=== PATIENT | female | born 1970 | race Caucasian/White ===

== ENCOUNTER 2019-09-09 10:31 | IRF | payer MEDICARE, SELFPAY ==
[2019-09-09 10:35] VITALS: BP 116/76; PULSE 87; RESP 20; TEMP 36.6; O2SAT 98; BMI 29.8
--- NOTE | 2019-09-09 10:49 | ADMGEN ---
This patient, Shilpi Benites, was admitted to [facility] Room 219-02. Patient/family oriented to hospital policies and general routines including ID bracelet, bed and alarms, visiting hours, pain management, procedures, bathroom and other care routines, personal items, smoking policy, room service/diet, and visiting hours. Valuables list has been completed. Information on how to activate the Rapid Response Team has been discussed. Patient/Family are encouraged to report perceived risks to care and to ask questions if they do not understand what they are told or what they should do.
[2019-09-09 11:50] VITALS: BMI 29.8
[2019-09-09 12:17] VITALS: BMI 29.8
--- NOTE | 2019-09-09 12:32 | WPDREHABHP ---
H&P: HPI History of Present Illness Chief complaint: Peripheral Neuropathy Narrative: Shilpi Benites is a 49 year old femaleHISTORY OF PRESENT ILLNESS: The patient's primary rehab impairment category is neurologic Which includes generalized weakness lumbar canal stenosis lumbar radiculopathy and peripheral neuropathy symptoms superimposed on underlying significant Parkinson's disease for which she has DBS The etiologic diagnosis is lumbar radiculopathy secondary to lumbar canal stenosis, peripheral neuropathy, gait disorder and significant Parkinson's disease we which began at the age of 19 I saw this patient [id number] on September 09, 2019 at 12 noon The patient is a 49-year-old right-handed woman known to me from her previous hospitalization post surgery on her back a few years ago who presented to [facility] on September 07, 2019 with complains of recurring falls and painful and weak bilateral lower extremities. The patient does have a history of Parkinson's disease status post DBS by Dr. Hernandez in 1998 and status post L4/L5 AL IF/P CT by Dr. Gomez in April of 2016. The patient reported she suffered a mechanical fall about 6 weeks ago but recovered from the fall without medical evaluation. On the day of admission she initially fell while at work when her right leg gave out from under her and had 2 subsequent falls. After the 3rd fall she reported she could not walk without assistance and a walker. She has been experiencing associated pain in her buttocks, groin, outer and anterior thighs. Stops at mid thigh and she has no pain down the posterior thigh about her leg. She denies any loss of consciousness with any of the falls she reported present CT of the entire spine was negative for any acute fracture. CT myelogram demonstrated partial mild graphic block at L2-L3 with patient stating aggravation of symptoms similar to her ongoing pain and postoperative changes of posterior instrumented and interbody fusion at L4-5 on a background of multilevel lumbar spine degenerative changes most advanced at L2-L3 and to a lesser extent of L3-4. Neurosurgery was consulted and reported her symptoms could be but all GI paresthetica. They ordered a bladder scan labs. She is currently on a low dose of levodopa twice a day because she she believes this help for bladder urgency. However she is telling me that she has been intolerant to carbidopa levodopa and has not been taking it since she had DBS. Neurology of course followed her to home she reported symptoms of poor appetite fatigue constipation urinary frequency myalgia as cramping tremor dysphoria postural instability and anxiety. her typical gait is slow and she shuffles with short steps UA was negative Prieb at the patient requires physicians monitoring of anemia and elevated BUN. She requires Neurology Services for monitoring for adverse reactions to new medications in conjunction with her active Parkinson's disease hypotension and pain management. The patient presents alert and oriented x3 demonstrates bilateral lower extremity pain decrease strength and endurance impaired balance and shuffling gait. The patient will be discharged to us with Lovenox for DVT prophylaxis The patient denies traveling outside the [place] in the previous 21 days likewise she denies traveling to and area of COVID pandemic case is she denies any upper respiratory or lower extremity symptoms Therapy was initiated at the acute care facility and the patient transferred to us from [facility] on September 09, 2019 FALLS OR SURGERIES: The patient has had no major surgeries in the 100 days prior to admission. They had falls in the past year. They had falls with injury in the past year. PAST MEDICAL HISTORY: Parkinson's disease for almost 30 years, lumbar spondylosis ptosis, anxiety, depression, insomnia,PONV, back strain, oriented disc disease, former smoker PAST SURGICAL HISTORY: DBS insertion, spinal fusion, g
[2019-09-09 14:00] VITALS: BP 116/76; PULSE 87; RESP 20; TEMP 36.6; O2SAT 98
[2019-09-09] MEDS: NAPROXEN 500 MG TABLET PO (17:43)
[2019-09-09] MEDS: ENOXAPARIN 40 MG/0.4 ML SYRINGE SUB-Q (17:43)
[2019-09-09] MEDS: FAMOTIDINE 20 MG TABLET PO (20:01)
[2019-09-09] MEDS: CLONAZEPAM 0.5 MG TAB 1 MG PO (20:01)
[2019-09-09] MEDS: MELATONIN 5 MG TABLET PO (20:04)
[2019-09-09 22:00] VITALS: BP 105/60; PULSE 83; RESP 18; TEMP 36.1; O2SAT 96
[2019-09-10 04:55] LABS: Basophils Percent Auto 0.5 % (0.2-1.2); Eosinophils Absolute Auto 0.2 K/mm3 (0-0.3); Eosinophils Percent Auto 2.8 % (0-4.4); Hemoglobin 11.9 g/dL (12.0-15.0); Immature Granulocyte Absolute 0.01 K/mm3 (0.00-0.031); Immature Granulocyte Percent A 0.2 % (0-0.5); Lymphocytes Absolute Auto 2.35 K/mm3 (0.9-3.2); Lymphocytes Percent Auto 41.1 % (18.3-44.2); Mean Corpuscular HGB Conc 33.1 g/dl (32-36); Mean Corpuscular Hemoglobin 29.3 pg (26-34); Mean Corpuscular Volume 88.7 fl (80-100); Mean Platelet Volume 9.4 fl (7.4-10.4); Monocytes Absolute Auto 0.5 K/mm3 (0.1-0.6); Monocytes Percent Auto 8.7 % (2.6-8.5); Neutrophils Absolute Auto 2.7 K/mm3 (1.3-6.7); Neutrophils Percent Auto 46.7 % (45.5-73.1); Platelet Count Result 200 k/mm3 (150-375); Red Blood Count 4.06 M/mm3 (4.2-5.4); Red Cell Distribution Width 12.5 % (11.5-14.5); White Blood Count 5.7 K/mm3 (4.5-10.0)
[2019-09-10 05:14] LABS: Blood Urea Nitrogen 31 mg/dL (7-17); Calcium 9.5 mg/dL (8.4-10.2); Carbon Dioxide 29 mmol/L (22-30); Chloride 107 mmol/L (98-107); Estimated CRCL calculation 85 ml/min; Estimated Glomerular Filt Rate > 60; Glucose 99 mg/dL (65-105); Potassium 3.8 mmol/L (3.4-5.0); Sodium 141 mmol/L (137-145)
[2019-09-10 06:00] VITALS: BP 114/76; PULSE 76; RESP 16; TEMP 35.7; O2SAT 94
[2019-09-10] MEDS: ENOXAPARIN 40 MG/0.4 ML SYRINGE SUB-Q (09:24)
[2019-09-10] MEDS: FAMOTIDINE 20 MG TABLET PO ×2 (09:24→21:15)
[2019-09-10] MEDS: SERTRALINE HCL 50 MG TABLET PO (09:25)
[2019-09-10] MEDS: NAPROXEN 500 MG TABLET PO ×2 (09:25→16:34)
[2019-09-10] MEDS: buPROPion HCL XL (24 HR) 150 MG TABCR 300 MG PO (09:25)
[2019-09-10] MEDS: BACLOFEN 5 MG TABLET PO ×2 (09:26→21:15)
[2019-09-10 14:00] VITALS: BP 98/42; PULSE 72; RESP 18; TEMP 36.6; O2SAT 100
--- NOTE | 2019-09-10 14:31 | WPDNEURORHBP ---
Subjective Date/time seen: 09/10/19 14:31 Interval history: This 49-year-old woman who has underlying Parkinson's disease status post DBS insertion many years ago is here because of significant lumbar canal stenosis lumbar radiculopathy peripheral neuropathy gait disorder and mild bladder dysfunction The patient is engage in therapy getting better does not have any new specific complaints particularly denies any headache nausea vomiting chest pain or shortness of breath Review of Systems Review of Systems: All systems reviewed & are unremarkable except as noted in HPI and below Functional Status Ambulation Ability Ability to Ambulate 10 Feet: Contact Guard Ability to Ambulate 50 Feet With 2 Turns: Contact Guard Ability to Ambulate 150 Feet: Contact Guard Ambulation Assistive Devices: Walker, Wheeled Transfers Ability Ability to Transfer In/Out of Chair: Minimum Assistance X 1 Exam Const: General: comfortable and no acute distress HENMT: General nose exam: Normal nares present Mouth: Yes moist mucous membranes Eyes: General: appearance normal, both eyes and all related structures Neck: Neck: supple and no JVD Resp: Effort & Inspection: normal respiratory effort Auscultation: clear to auscultation bilaterally Cardio: Rate: regular rate Rhythm: regular rhythm GI: GI Palp: Yes Soft to palpation Auscultation: normal bowel sounds Back/Spine/Pelvis: Other: tender lower back and limited straight leg raising Skin: General skin exam: normal color and no rashes or lesions noted Neuro: Other: patient's mentally alert at his baseline with relatively slow monotonous speech evidence of Parkinson's disease bilaterally which is fairly well controlled with the DBS depressed reflexes in the lower extremities and sensory deficit related to lumbar radiculopathy lumbar canal stenosis and peripheral neuropathy Extrem: General: normal to inspection Psych: Mental Status: mental status grossly normal Objective Data Vital Signs Vital Signs: Vital Signs - 24 hr 09/10/19 22:00 09/11/19 06:00 Temperature 36.7 C 36.4 C Pulse Rate 88 79 Respiratory Rate 19 19 Blood Pressure 122/73 112/64 Pulse Oximetry 100 99 Intake/Output Intake/Output: Intake & Output 09/08/19 09/09/19 09/10/19 09/11/19 23:59 23:59 23:59 23:59 Intake Total 240 720 480 Balance 240 720 480 Meds/Results Medications: Active Medications Generic Name Dose Route Start Last Admin Trade Name Freq PRN Reason Stop Dose Admin Baclofen 5 mg 09/09/19 11:10 09/10/19 21:15 Lioresal Po PO 5 mg HS PRN Administration Muscle Spasm Bupropion HCl 300 mg 09/10/19 09:00 09/11/19 09:17 Wellbutrin Xl (24 Hr) PO 300 mg QAM DEEJAY Administration Clonazepam 1 mg 09/09/19 21:00 09/10/19 21:15 Klonopin Tablet PO 1 mg HS DEEJAY Administration Enoxaparin Sodium 40 mg 09/09/19 13:10 09/11/19 09:17 Lovenox SUB-Q 40 mg DAILY DEEJAY Administration Famotidine 20 mg 09/09/19 21:00 09/11/19 09:18 Pepcid PO 20 mg Q12HR DEEJAY Administration Melatonin 5 mg 09/09/19 21:00 09/10/19 21:16 Melatonin PO 5 mg HS DEEJAY Administration Naproxen 500 mg 09/09/19 17:00 09/11/19 09:17 Naproxen PO 500 mg BID DEEJAY Administration Oxybutynin Chloride 5 mg 09/10/19 09:00 09/11/19 09:18 Ditropan Xl PO 5 mg DAILY DEEJAY Administration Senna/Docusate Sodium 1 tab 09/11/19 07:44 Senokot S Tablet PO Q12HR PRN Constipation Sertraline HCl 50 mg 09/10/19 09:00 09/11/19 09:18 Zoloft PO 50 mg DAILY DEEJAY Administration Progress Note: A&P Assessment and Plan (1) Depression: Code(s): F32.9 - Major depressive disorder, single episode, unspecified Status: Acute (2) Anxiety: Code(s): F41.9 - Anxiety disorder, unspecified Status: Acute (3) Insomnia: Code(s): G47.00 - Insomnia, unspecified Status: Acute (4) Multiple falls: Code(s): R29.6 - Re
[2019-09-10] MEDS: CLONAZEPAM 0.5 MG TAB 1 MG PO (21:15)
[2019-09-10] MEDS: MELATONIN 5 MG TABLET PO (21:16)
[2019-09-10 22:00] VITALS: BP 122/73; PULSE 88; RESP 19; TEMP 36.7; O2SAT 100
[2019-09-11 06:00] VITALS: BP 112/64; PULSE 79; RESP 19; TEMP 36.4; O2SAT 99
[2019-09-11] MEDS: NAPROXEN 500 MG TABLET PO ×2 (09:17→17:40)
[2019-09-11] MEDS: ENOXAPARIN 40 MG/0.4 ML SYRINGE SUB-Q (09:17)
[2019-09-11] MEDS: buPROPion HCL XL (24 HR) 150 MG TABCR 300 MG PO (09:17)
[2019-09-11] MEDS: FAMOTIDINE 20 MG TABLET PO ×2 (09:18→21:47)
[2019-09-11] MEDS: SERTRALINE HCL 50 MG TABLET PO (09:18)
[2019-09-11 14:00] VITALS: BP 127/63; PULSE 87; RESP 18; TEMP 36.9; O2SAT 98
--- NOTE | 2019-09-11 15:44 | WPDNEURORHBP ---
Subjective Date/time seen: 09/11/19 15:44 Interval history: this 49-year-old woman who has underlying Parkinson's disease status post DBS is here because of significant lumbar canal stenosis lumbar radiculopathy peripheral neuropathy making progress in the rehab is happy with the care denies any headache nausea vomiting fevers chills or sore throat Review of Systems Review of Systems: All systems reviewed & are unremarkable except as noted in HPI and below Functional Status Ambulation Ability Ability to Ambulate 10 Feet: Contact Guard Ability to Ambulate 50 Feet With 2 Turns: Contact Guard Ability to Ambulate 150 Feet: Contact Guard Ambulation Assistive Devices: Walker, Wheeled Transfers Ability Ability to Transfer In/Out of Chair: Minimum Assistance X 1 Exam Const: General: comfortable and no acute distress HENMT: General nose exam: Normal nares present Mouth: Yes moist mucous membranes Eyes: General: appearance normal, both eyes and all related structures Neck: Neck: supple and no JVD Resp: Effort & Inspection: normal respiratory effort Auscultation: clear to auscultation bilaterally Cardio: Rate: regular rate Rhythm: regular rhythm GI: GI Palp: Yes Soft to palpation Auscultation: normal bowel sounds Skin: General skin exam: normal color and no rashes or lesions noted Neuro: Other: patient's mental status is normal cranial nerve examination is normal the signs of Parkinson's disease are obvious with mild dysphonia and dysarthria which is stable with rigidity and mild tremor however making progress quite well Extrem: General: normal to inspection Psych: Mental Status: mental status grossly normal Objective Data Vital Signs Vital Signs: Vital Signs - 24 hr 09/10/19 22:00 09/11/19 06:00 09/11/19 14:00 Temperature 36.7 C 36.4 C 36.9 C Pulse Rate 88 79 87 Respiratory Rate 19 19 18 Blood Pressure 122/73 112/64 127/63 Pulse Oximetry 100 99 98 Intake/Output Intake/Output: Intake & Output 09/08/19 09/09/19 09/10/19 09/11/19 23:59 23:59 23:59 23:59 Intake Total 240 720 480 Balance 240 720 480 Meds/Results Medications: Active Medications Generic Name Dose Route Start Last Admin Trade Name Freq PRN Reason Stop Dose Admin Baclofen 5 mg 09/09/19 11:10 09/10/19 21:15 Lioresal Po PO 5 mg HS PRN Administration Muscle Spasm Bupropion HCl 300 mg 09/10/19 09:00 09/11/19 09:17 Wellbutrin Xl (24 Hr) PO 300 mg QAM DEEJAY Administration Clonazepam 1 mg 09/09/19 21:00 09/10/19 21:15 Klonopin Tablet PO 1 mg HS DEEJAY Administration Enoxaparin Sodium 40 mg 09/09/19 13:10 09/11/19 09:17 Lovenox SUB-Q 40 mg DAILY DEEJAY Administration Famotidine 20 mg 09/09/19 21:00 09/11/19 09:18 Pepcid PO 20 mg Q12HR DEEJAY Administration Melatonin 5 mg 09/09/19 21:00 09/10/19 21:16 Melatonin PO 5 mg HS DEEJAY Administration Naproxen 500 mg 09/09/19 17:00 09/11/19 09:17 Naproxen PO 500 mg BID DEEJAY Administration Oxybutynin Chloride 5 mg 09/10/19 09:00 09/11/19 09:18 Ditropan Xl PO 5 mg DAILY DEEJAY Administration Senna/Docusate Sodium 1 tab 09/11/19 07:44 Senokot S Tablet PO Q12HR PRN Constipation Sertraline HCl 50 mg 09/10/19 09:00 09/11/19 09:18 Zoloft PO 50 mg DAILY DEEJAY Administration Progress Note: A&P Assessment and Plan (1) Depression: Code(s): F32.9 - Major depressive disorder, single episode, unspecified Status: Acute (2) Anxiety: Code(s): F41.9 - Anxiety disorder, unspecified Status: Acute (3) Insomnia: Code(s): G47.00 - Insomnia, unspecified Status: Acute (4) Multiple falls: Code(s): R29.6 - Repeated falls Status: Acute (5) Gait disorder: Code(s): R26.9 - Unspecified abnormalities of gait and mobility Status: Acute (6) Lumbar canal stenosis: Code(s): M48.061 - Spinal stenosis, lumbar region without neuroge
[2019-09-11] MEDS: MELATONIN 5 MG TABLET PO (21:47)
[2019-09-11] MEDS: CLONAZEPAM 0.5 MG TAB 1 MG PO (21:47)
[2019-09-11 22:00] VITALS: BP 113/79; PULSE 95; RESP 18; TEMP 36.1; O2SAT 98
[2019-09-12 06:00] VITALS: BP 123/42; PULSE 62; RESP 18; TEMP 36.9; O2SAT 97
--- NOTE | 2019-09-12 09:28 | RPD ---
Addendum entered by Judi Burton 09/12/19 09:46: The patient requires physician services for neurology services, medical oversight, and coordination of care. Emotional needs will be monitored as depression is a common sequelae of Parkinson's disease. The patient requires for physician monitoring and treatment for adverse reactions to new medications in conjunction with her active Parkinson's disease, hypotension, and pain management. The patient requires nursing services for frequent neuro checks, anticoagulation therapy, medication management and education, pressure relief and skin care management, monitoring of labs, and fall/safety precautions. Original Note: INDIVIDUALIZED PLAN OF CARE FOR Shilpi Benites Brief Synthesis of Pre-Admission Screen, Post-Admission Evaluation and Therapy Evaluations: The patient presents to rehab with lumbar radiculopathy secondary to lumbar canal stenosis, peripheral neuropathy, gait disorder and significant Parkinson's disease. Comorbidities include degenerative disease of the cervical and thoracic spine, pain in bilateral lower extremities, Parkinson's disease, anxiety, depression, insomnia, bradykinesia, tremor, mild rigidity, bladder urgency, constipation, poor appetite, fatigue, recurrent falls, cramps, anemia, postural instability related to PD, L2-L3 spinal stenosis, hypotension, GERD. Deficits include:ADLs, Balance, Endurance, Family Training/Education, Mobility, Pain Management, ROM, Safety, Strength, Transfers Adventure Education Teacher/Case Management for: Discharge Planning and Patient/Family Counseling Physical Therapy: 5 days per week for 90 minutes. Treatments may include: Therapeutic Exercise, Gait Training, Neuromuscular Re-education, Transfer Training, Community Reintegration, Bed Mobility, Patient/Family Education, Wheelchair Mobility Group Therapy/Concurrent Therapy Rationales: -Improve attention span during functional activities in a distracted environment. -Enhance problem solving and/or adequate judgment skills during functional activities in a distracted environment. -Promote increased safety awareness in a distracted environment to reduce fall risk with functional tasks, transfers, and ambulation to allow a more safe, self-sufficient return to the home environment. -Improve dynamic balance skills to promote safety and independence with functional activities in a distracted environment for maximum gain. Occupational Therapy: 5 days per week for 90 minutes. Treatments may include: Therapeutic Exercise, Therapeutic Activity, Cognitive Training, Self-Care Transfer Training, Community Reintegration, Home Management, Patient/Family Education, Wheelchair Mobility Training, Energy Conservation Training Group Therapy/Concurrent Therapy Rationales: -Allow therapist to observe and teach generalization and carry-over of skills learned in individual therapy. -Enhance problem solving and sequencing skills during therapeutic activities in a distracted environment. -Promote increased safety awareness in a realistic setting to reduce fall risk with functional tasks due to visual and verbal distractions. -Increase functional level with ADLs, ADL transfers and use of adaptive equipment through therapeutic activities with others while promoting safety to allow a more safe, self-sufficient return home. Medical Prognosis: Good Anticipated Length of Stay: 7 days Rehab Goals: Eating Goal: 06-Independent Oral Hygiene Goal: 06-Independent Toileting Hygiene Goal: 06-Independent Shower/Bathe Self Goal: 06-Independent Upper Body Dressing Goal: 06-Independent Lower Body Dressing Goal: 06-Independent Putting On/Taking Off Footwear Goal: 06-Independent Rolling Left and Right Goal: 06-Independent Sit to Lying Goal: 06-Independent Lying to Sitting on Side of Bed Goal: 06-Independent Sit to Stand Goal: 06-Independent Chair/[id number] Transfer Goal: 06-Independent Toilet Transfer Goal: 06-Independent Car Transfer G
[2019-09-12] MEDS: NAPROXEN 500 MG TABLET PO ×2 (09:30→17:35)
[2019-09-12] MEDS: SERTRALINE HCL 50 MG TABLET PO (09:30)
[2019-09-12] MEDS: FAMOTIDINE 20 MG TABLET PO ×2 (09:30→20:12)
[2019-09-12] MEDS: ENOXAPARIN 40 MG/0.4 ML SYRINGE SUB-Q (09:30)
[2019-09-12] MEDS: buPROPion HCL XL (24 HR) 150 MG TABCR 300 MG PO (09:30)
[2019-09-12 14:00] VITALS: BP 128/64; PULSE 72; RESP 20; TEMP 36.4; O2SAT 98
[2019-09-12] MEDS: CLONAZEPAM 0.5 MG TAB 1 MG PO (20:12)
[2019-09-12] MEDS: MELATONIN 5 MG TABLET PO (20:12)
[2019-09-12 22:00] VITALS: BP 108/64; PULSE 96; RESP 17; TEMP 36; O2SAT 97
[2019-09-13 06:00] VITALS: BP 106/69; PULSE 73; RESP 17; TEMP 36; O2SAT 97
[2019-09-13] MEDS: buPROPion HCL XL (24 HR) 150 MG TABCR 300 MG PO (09:26)
[2019-09-13] MEDS: FAMOTIDINE 20 MG TABLET PO ×2 (09:26→22:02)
[2019-09-13] MEDS: SERTRALINE HCL 50 MG TABLET PO (09:27)
[2019-09-13] MEDS: NAPROXEN 500 MG TABLET PO ×2 (09:27→17:29)
--- NOTE | 2019-09-13 13:49 | WPDNEURORHBP ---
Subjective Date/time seen: 09/13/19 13:49 Interval history: this 49-year-old woman with underlying significant Parkinson's disease status post DBS is here because of significant lumbar canal stenosis lumbar radiculopathy and peripheral neuropathy she is doing fairly well has been able to walk 150 feet and engage than therapy denies any headache nausea vomiting chest pain shortness of breath fever chills or sore throat Review of Systems Review of Systems: All systems reviewed & are unremarkable except as noted in HPI and below Functional Status Ambulation Ability Ability to Ambulate 10 Feet: Contact Guard Ability to Ambulate 50 Feet With 2 Turns: Contact Guard Ability to Ambulate 150 Feet: Contact Guard Ambulation Assistive Devices: Walker, Wheeled Transfers Ability Ability to Transfer In/Out of Chair: Minimum Assistance X 1 Exam Const: General: comfortable and no acute distress HENMT: General nose exam: Normal nares present Mouth: Yes moist mucous membranes Eyes: General: appearance normal, both eyes and all related structures Neck: Neck: supple and no JVD Resp: Effort & Inspection: normal respiratory effort Auscultation: clear to auscultation bilaterally Cardio: Rate: regular rate Rhythm: regular rhythm GI: GI Palp: Yes Soft to palpation Auscultation: normal bowel sounds Skin: General skin exam: normal color and no rashes or lesions noted Neuro: Other: patient's parkinsonian signs are stable she is walking better engage in therapy has normal mental status normal cranial nerves and decreased strength in both upper lower extremities clearly improving with symmetrical 1+ reflexes and negative Babinski sign Extrem: General: normal to inspection Psych: Mental Status: mental status grossly normal Objective Data Vital Signs Vital Signs: Vital Signs - 24 hr 09/12/19 14:00 09/12/19 22:00 09/13/19 06:00 Temperature 36.4 C 36.0 C L 36.0 C L Pulse Rate 72 96 73 Respiratory Rate 20 17 17 Blood Pressure 128/64 108/64 106/69 Pulse Oximetry 98 97 97 Intake/Output Intake/Output: Intake & Output 09/10/19 09/11/19 09/12/19 09/13/19 23:59 23:59 23:59 23:59 Intake Total 720 720 720 480 Balance 720 720 720 480 Meds/Results Medications: Active Medications Generic Name Dose Route Start Last Admin Trade Name Freq PRN Reason Stop Dose Admin Baclofen 5 mg 09/09/19 11:10 09/10/19 21:15 Lioresal Po PO 5 mg HS PRN Administration Muscle Spasm Bupropion HCl 300 mg 09/10/19 09:00 09/13/19 09:26 Wellbutrin Xl (24 Hr) PO 300 mg QAM DEEJAY Administration Clonazepam 1 mg 09/09/19 21:00 09/12/19 20:12 Klonopin Tablet PO 1 mg HS DEEJAY Administration Famotidine 20 mg 09/09/19 21:00 09/13/19 09:26 Pepcid PO 20 mg Q12HR DEEJAY Administration Melatonin 5 mg 09/09/19 21:00 09/12/19 20:12 Melatonin PO 5 mg HS DEEJAY Administration Naproxen 500 mg 09/09/19 17:00 09/13/19 09:27 Naproxen PO 500 mg BID DEEJAY Administration Oxybutynin Chloride 5 mg 09/10/19 09:00 09/13/19 09:27 Ditropan Xl PO 5 mg DAILY DEEJAY Administration Senna/Docusate Sodium 1 tab 09/11/19 07:44 Senokot S Tablet PO Q12HR PRN Constipation Sertraline HCl 50 mg 09/10/19 09:00 09/13/19 09:27 Zoloft PO 50 mg DAILY DEEJAY Administration Progress Note: A&P Assessment and Plan (1) Depression: Code(s): F32.9 - Major depressive disorder, single episode, unspecified Status: Acute (2) Anxiety: Code(s): F41.9 - Anxiety disorder, unspecified Status: Acute (3) Insomnia: Code(s): G47.00 - Insomnia, unspecified Status: Acute (4) Multiple falls: Code(s): R29.6 - Repeated falls Status: Acute (5) Gait disorder: Code(s): R26.9 - Unspecified abnormalities of gait and mobility Status: Acute (6) Lumbar canal stenosis: Code(s): M48.061 - Spinal stenosis, lumbar region without neurogenic cla
[2019-09-13 14:00] VITALS: BP 103/53; PULSE 96; RESP 20; TEMP 36.7; O2SAT 98
[2019-09-13 22:00] VITALS: BP 138/60; PULSE 89; RESP 18; TEMP 36.2; O2SAT 100
[2019-09-13] MEDS: CLONAZEPAM 0.5 MG TAB 1 MG PO (22:02)
[2019-09-13] MEDS: MELATONIN 5 MG TABLET PO (22:03)
[2019-09-14 06:00] VITALS: BP 99/66; PULSE 68; RESP 16; TEMP 36.8; O2SAT 100
[2019-09-14] MEDS: BACLOFEN 5 MG TABLET PO (08:30)
[2019-09-14] MEDS: NAPROXEN 500 MG TABLET PO ×2 (08:30→17:06)
[2019-09-14] MEDS: FAMOTIDINE 20 MG TABLET PO ×2 (08:30→20:50)
[2019-09-14] MEDS: SERTRALINE HCL 50 MG TABLET PO (08:30)
[2019-09-14] MEDS: buPROPion HCL XL (24 HR) 150 MG TABCR 300 MG PO (08:30)
[2019-09-14] MEDS: SENNA/DOCUSATE SODIUM TABLET 1 TAB PO (08:31)
--- NOTE | 2019-09-14 11:55 | PCDIET ---
Nutrition Follow-Up Complete: No nutrition diagnosis at this time. Patient regaining weight and BMI is 29.9. Nutrition Goal: Patient to consume 75% of meals or more. Goal met. Patient consuming 75-100% of meals on regular diet which is appropriate. Last recorded weight is 89.1 kg. Recommend obtaining weekly weights. Bowel Motility: Last documented BM on 09/10/19. Patient given Senna today. Labs Reviewed: Unremarkable Meds Noted: Pepcid, Senna Additional Notes: No documented skin breakdown. Will continue to monitor with same goals. Nutrition Monitoring and Evaluation: Follow up every 7 days.
--- NOTE | 2019-09-14 12:18 | WPDNEURORHBP ---
Subjective Date/time seen: 09/14/19 12:18 Interval history: this 49-year-old woman with underlying long-standing Parkinson's disease status post DBS bilaterally is here because of significant lumbar canal stenosis associated with lumbar radiculopathy and peripheral neuropathy she is doing better but most definitely would require surgery in the near future once the situation for the Coronavirus resolves she denies any headache nausea vomiting chest pain shortness of breath fever chills or sore throat Review of Systems Review of Systems: All systems reviewed & are unremarkable except as noted in HPI and below Functional Status Ambulation Ability Ability to Ambulate 10 Feet: Contact Guard Ability to Ambulate 50 Feet With 2 Turns: Contact Guard Ability to Ambulate 150 Feet: Contact Guard Ambulation Assistive Devices: Walker, Wheeled Transfers Ability Ability to Transfer In/Out of Chair: Minimum Assistance X 1 Exam Const: General: comfortable and no acute distress HENMT: General nose exam: Normal nares present Mouth: Yes moist mucous membranes Eyes: General: appearance normal, both eyes and all related structures Neck: Neck: supple and no JVD Resp: Effort & Inspection: normal respiratory effort Auscultation: clear to auscultation bilaterally Cardio: Rate: regular rate Rhythm: regular rhythm GI: GI Palp: Yes Soft to palpation Auscultation: normal bowel sounds Skin: General skin exam: normal color and no rashes or lesions noted Neuro: Other: patient is awake and alert has normal speech and language function normal cranial examination is strength is improving in both upper lower extremities she is engage in therapy and doing remarkably well and improvement overall is of improvement in her neurological status Extrem: General: normal to inspection Psych: Mental Status: mental status grossly normal Objective Data Vital Signs Vital Signs: Vital Signs - 24 hr 09/13/19 14:00 09/13/19 22:00 09/14/19 06:00 Temperature 36.7 C 36.2 C L 36.8 C Pulse Rate 96 89 68 Respiratory Rate 20 18 16 Blood Pressure 103/53 L 138/60 99/66 L Pulse Oximetry 98 100 100 Intake/Output Intake/Output: Intake & Output 09/11/19 09/12/19 09/13/19 09/14/19 23:59 23:59 23:59 23:59 Intake Total 720 720 720 240 Balance 720 720 720 240 Meds/Results Medications: Active Medications Generic Name Dose Route Start Last Admin Trade Name Freq PRN Reason Stop Dose Admin Baclofen 5 mg 09/09/19 11:10 09/14/19 08:30 Lioresal Po PO 5 mg HS PRN Administration Muscle Spasm Bupropion HCl 300 mg 09/10/19 09:00 09/14/19 08:30 Wellbutrin Xl (24 Hr) PO 300 mg QAM DEEJAY Administration Clonazepam 1 mg 09/09/19 21:00 09/13/19 22:02 Klonopin Tablet PO 1 mg HS DEEJAY Administration Famotidine 20 mg 09/09/19 21:00 09/14/19 08:30 Pepcid PO 20 mg Q12HR DEEJAY Administration Melatonin 5 mg 09/09/19 21:00 09/13/19 22:03 Melatonin PO 5 mg HS DEEJAY Administration Naproxen 500 mg 09/09/19 17:00 09/14/19 08:30 Naproxen PO 500 mg BID DEEJAY Administration Oxybutynin Chloride 5 mg 09/10/19 09:00 09/14/19 08:30 Ditropan Xl PO 5 mg DAILY DEEJAY Administration Senna/Docusate Sodium 1 tab 09/11/19 07:44 09/14/19 08:31 Senokot S Tablet PO 1 tab Q12HR PRN Administration Constipation Sertraline HCl 50 mg 09/10/19 09:00 09/14/19 08:30 Zoloft PO 50 mg DAILY DEEJAY Administration Progress Note: A&P Assessment and Plan (1) Depression: Code(s): F32.9 - Major depressive disorder, single episode, unspecified Status: Acute (2) Anxiety: Code(s): F41.9 - Anxiety disorder, unspecified Status: Acute (3) Insomnia: Code(s): G47.00 - Insomnia, unspecified Status: Acute (4) Multiple falls: Code(s): R29.6 - Repeated falls Status: Acute (5) Gait disorder: Code(s): R26.9 - Unspecified abnormalities of gait and mo
[2019-09-14 14:00] VITALS: BP 132/85; PULSE 77; RESP 18; TEMP 36.6; O2SAT 98
[2019-09-14 20:00] VITALS: BP 108/65; PULSE 82; RESP 16; TEMP 36.9; O2SAT 98
[2019-09-14] MEDS: CLONAZEPAM 0.5 MG TAB 1 MG PO (20:50)
[2019-09-14] MEDS: MELATONIN 5 MG TABLET PO (20:50)
[2019-09-15 05:51] VITALS: BP 105/62; PULSE 77; RESP 16; TEMP 36.8; O2SAT 95
[2019-09-15] MEDS: buPROPion HCL XL (24 HR) 150 MG TABCR 300 MG PO (08:36)
[2019-09-15] MEDS: FAMOTIDINE 20 MG TABLET PO ×2 (08:36→20:24)
[2019-09-15] MEDS: SERTRALINE HCL 50 MG TABLET PO (08:37)
[2019-09-15] MEDS: NAPROXEN 500 MG TABLET PO ×2 (08:37→17:19)
--- NOTE | 2019-09-15 11:25 | WPDNEURORHBP ---
Subjective Date/time seen: 09/15/19 11:25 Interval history: this 49-year-old woman with underlying significant Parkinson's disease status post DBS is here because of significant lumbar canal stenosis lumbar radiculopathy and peripheral neuropathy today she was complaining of more weakness of the lower extremities was still able to walk she would require surgery however it has been deferred by the surgeons because of the ongoing Coronavirus situation I discussed with her and counseled her she understands and understood it well beside that she denies any headache nausea vomiting fevers chills or sore throat Review of Systems Review of Systems: All systems reviewed & are unremarkable except as noted in HPI and below Functional Status Ambulation Ability Ability to Ambulate 10 Feet: Standby Assistance Ability to Ambulate 50 Feet With 2 Turns: Standby Assistance Ability to Ambulate 150 Feet: Standby Assistance Ambulation Assistive Devices: Walker, Wheeled Transfers Ability Ability to Transfer In/Out of Chair: Standby Assistance Exam Const: General: comfortable and no acute distress HENMT: General nose exam: Normal nares present Mouth: Yes moist mucous membranes Eyes: General: appearance normal, both eyes and all related structures Neck: Neck: supple and no JVD Resp: Effort & Inspection: normal respiratory effort Auscultation: clear to auscultation bilaterally Cardio: Rate: regular rate Rhythm: regular rhythm GI: GI Palp: Yes Soft to palpation Skin: General skin exam: normal color and no rashes or lesions noted Neuro: Other: patient remains awake alert will oriented in time place and person her neurological status from the Parkinson's disease standpoint remains stable there is no worsening noted in fact she is some better however continues to show signs of the lower extremity weakness and depressed reflexes negative Babinski sign needing assistance particularly in walking and using walker Extrem: General: normal to inspection Psych: Mental Status: mental status grossly normal Objective Data Vital Signs Vital Signs: Vital Signs - 24 hr 09/15/19 14:00 09/15/19 22:00 09/16/19 06:00 Temperature 36.7 C 36.6 C 36.5 C Pulse Rate 101 H 92 73 Respiratory Rate 16 16 18 Blood Pressure 112/63 123/75 106/57 L Pulse Oximetry 98 98 99 Intake/Output Intake/Output: Intake & Output 09/13/19 09/14/19 09/15/19 09/16/19 23:59 23:59 23:59 23:59 Intake Total 720 780 840 240 Balance 720 780 840 240 Meds/Results Medications: Active Medications Generic Name Dose Route Start Last Admin Trade Name Freq PRN Reason Stop Dose Admin Baclofen 5 mg 09/09/19 11:10 09/14/19 08:30 Lioresal Po PO 5 mg HS PRN Administration Muscle Spasm Bupropion HCl 300 mg 09/10/19 09:00 09/16/19 08:39 Wellbutrin Xl (24 Hr) PO 300 mg QAM DEEJAY Administration Clonazepam 1 mg 09/09/19 21:00 09/15/19 20:24 Klonopin Tablet PO 1 mg HS DEEJAY Administration Famotidine 20 mg 09/09/19 21:00 09/16/19 08:40 Pepcid PO 20 mg Q12HR DEEJAY Administration Melatonin 5 mg 09/09/19 21:00 09/15/19 20:24 Melatonin PO 5 mg HS DEEJAY Administration Naproxen 500 mg 09/09/19 17:00 09/16/19 08:40 Naproxen PO 500 mg BID DEEJAY Administration Oxybutynin Chloride 5 mg 09/10/19 09:00 09/16/19 08:40 Ditropan Xl PO 5 mg DAILY DEEJAY Administration Senna/Docusate Sodium 1 tab 09/11/19 07:44 09/14/19 08:31 Senokot S Tablet PO 1 tab Q12HR PRN Administration Constipation Sertraline HCl 50 mg 09/10/19 09:00 09/16/19 08:40 Zoloft PO 50 mg DAILY DEEJAY Administration Progress Note: A&P Assessment and Plan (1) Depression: Code(s): F32.9 - Major depressive disorder, single episode, unspecified Status: Acute (2) Anxiety: Code(s): F41.9 - Anxiety disorder, unspecified Status: Acute (3) Insomnia: Code(s): G47.00 - Insomnia, unspecified
[2019-09-15 14:00] VITALS: BP 112/63; PULSE 101; RESP 16; TEMP 36.7; O2SAT 98
[2019-09-15] MEDS: CLONAZEPAM 0.5 MG TAB 1 MG PO (20:24)
[2019-09-15] MEDS: MELATONIN 5 MG TABLET PO (20:24)
[2019-09-15 22:00] VITALS: BP 123/75; PULSE 92; RESP 16; TEMP 36.6; O2SAT 98
[2019-09-16 06:00] VITALS: BP 106/57; PULSE 73; RESP 18; TEMP 36.5; O2SAT 99
[2019-09-16] MEDS: buPROPion HCL XL (24 HR) 150 MG TABCR 300 MG PO (08:39)
[2019-09-16] MEDS: SERTRALINE HCL 50 MG TABLET PO (08:40)
[2019-09-16] MEDS: FAMOTIDINE 20 MG TABLET PO ×2 (08:40→20:11)
[2019-09-16] MEDS: NAPROXEN 500 MG TABLET PO ×2 (08:40→17:35)
--- NOTE | 2019-09-16 13:41 | WPDNEURORHBP ---
Subjective Date/time seen: 09/16/19 13:41 Interval history: this 49-year-old patient with underlying Parkinson's disease status post DBS is here because of significant lumbar canal stenosis lumbar radiculopathy gait dysfunction and peripheral neuropathy doing better than yesterday and looking forward to be going home over this weekend he denies any headache nausea vomiting chest pain shortness breath fever chills or sore throat her surgery on the lower back was deferred because of the COVID-19 and she is looking forward to have the surgery performed on in September some time and waiting for the call from [facility] Review of Systems Review of Systems: All systems reviewed & are unremarkable except as noted in HPI and below Functional Status Ambulation Ability Ability to Ambulate 10 Feet: Standby Assistance Ability to Ambulate 50 Feet With 2 Turns: Standby Assistance Ability to Ambulate 150 Feet: Standby Assistance Ambulation Assistive Devices: Walker, Wheeled Transfers Ability Ability to Transfer In/Out of Chair: Standby Assistance Exam Const: General: comfortable and no acute distress HENMT: General nose exam: Normal nares present Mouth: Yes moist mucous membranes Eyes: General: appearance normal, both eyes and all related structures Neck: Neck: supple and no JVD Resp: Effort & Inspection: normal respiratory effort Auscultation: clear to auscultation bilaterally Cardio: Rate: regular rate Rhythm: regular rhythm GI: GI Palp: Yes Soft to palpation Auscultation: normal bowel sounds Skin: General skin exam: normal color and no rashes or lesions noted Neuro: Other: patient's mental status is normal the parkinsonian signs are stable her weakness has improved to a point that she is walking several 100 feet of course with the walker the rest of the examination remains stable and same Extrem: General: normal to inspection Psych: Mental Status: mental status grossly normal Objective Data Vital Signs Vital Signs: Vital Signs - 24 hr 09/15/19 14:00 09/15/19 22:00 09/16/19 06:00 Temperature 36.7 C 36.6 C 36.5 C Pulse Rate 101 H 92 73 Respiratory Rate 16 16 18 Blood Pressure 112/63 123/75 106/57 L Pulse Oximetry 98 98 99 Intake/Output Intake/Output: Intake & Output 09/13/19 09/14/19 09/15/19 09/16/19 23:59 23:59 23:59 23:59 Intake Total 720 780 840 480 Balance 720 780 840 480 Meds/Results Medications: Active Medications Generic Name Dose Route Start Last Admin Trade Name Freq PRN Reason Stop Dose Admin Baclofen 5 mg 09/09/19 11:10 09/14/19 08:30 Lioresal Po PO 5 mg HS PRN Administration Muscle Spasm Bupropion HCl 300 mg 09/10/19 09:00 09/16/19 08:39 Wellbutrin Xl (24 Hr) PO 300 mg QAM DEEJAY Administration Clonazepam 1 mg 09/09/19 21:00 09/15/19 20:24 Klonopin Tablet PO 1 mg HS DEEJAY Administration Famotidine 20 mg 09/09/19 21:00 09/16/19 08:40 Pepcid PO 20 mg Q12HR DEEJAY Administration Melatonin 5 mg 09/09/19 21:00 09/15/19 20:24 Melatonin PO 5 mg HS DEEJAY Administration Naproxen 500 mg 09/09/19 17:00 09/16/19 08:40 Naproxen PO 500 mg BID DEEJAY Administration Oxybutynin Chloride 5 mg 09/10/19 09:00 09/16/19 08:40 Ditropan Xl PO 5 mg DAILY DEEJAY Administration Senna/Docusate Sodium 1 tab 09/11/19 07:44 09/14/19 08:31 Senokot S Tablet PO 1 tab Q12HR PRN Administration Constipation Sertraline HCl 50 mg 09/10/19 09:00 09/16/19 08:40 Zoloft PO 50 mg DAILY DEEJAY Administration Progress Note: A&P Assessment and Plan (1) Depression: Code(s): F32.9 - Major depressive disorder, single episode, unspecified Status: Acute (2) Anxiety: Code(s): F41.9 - Anxiety disorder, unspecified Status: Acute (3) Insomnia: Code(s): G47.00 - Insomnia, unspecified Status: Acute (4) Multiple falls: Code(s): R29.6 - Repeated falls Status: Acute (5)
[2019-09-16 14:00] VITALS: BP 118/83; PULSE 98; RESP 18; TEMP 36.6; O2SAT 98
[2019-09-16] MEDS: MELATONIN 5 MG TABLET PO (20:11)
[2019-09-16] MEDS: CLONAZEPAM 0.5 MG TAB 1 MG PO (20:11)
[2019-09-16 21:49] VITALS: BP 114/83; PULSE 98; RESP 18; TEMP 36.6; O2SAT 99
[2019-09-16] MEDS: BACLOFEN 5 MG TABLET PO (22:43)
[2019-09-17 04:34] LABS: Basophils Absolute Auto 0.1 K/mm3 (0.0-0.1); Basophils Percent Auto 0.8 % (0.2-1.2); Eosinophils Absolute Auto 0.2 K/mm3 (0-0.3); Eosinophils Percent Auto 2.6 % (0-4.4); Hematocrit 36.6 % (37.0-47.0); Hemoglobin 12.2 g/dL (12.0-15.0); Immature Granulocyte Absolute 0.01 K/mm3 (0.00-0.031); Immature Granulocyte Percent A 0.2 % (0-0.5); Lymphocytes Absolute Auto 2.09 K/mm3 (0.9-3.2); Lymphocytes Percent Auto 32.3 % (18.3-44.2); Mean Corpuscular HGB Conc 33.3 g/dl (32-36); Mean Corpuscular Hemoglobin 29.8 pg (26-34); Mean Corpuscular Volume 89.5 fl (80-100); Mean Platelet Volume 9.4 fl (7.4-10.4); Monocytes Absolute Auto 0.7 K/mm3 (0.1-0.6); Monocytes Percent Auto 10.7 % (2.6-8.5); Neutrophils Absolute Auto 3.5 K/mm3 (1.3-6.7); Neutrophils Percent Auto 53.4 % (45.5-73.1); Platelet Count Result 220 k/mm3 (150-375); Red Blood Count 4.09 M/mm3 (4.2-5.4); Red Cell Distribution Width 12.7 % (11.5-14.5); White Blood Count 6.5 K/mm3 (4.5-10.0)
[2019-09-17 04:46] LABS: Blood Urea Nitrogen 24 mg/dL (7-17); Calcium 9.2 mg/dL (8.4-10.2); Carbon Dioxide 29 mmol/L (22-30); Chloride 105 mmol/L (98-107); Estimated CRCL calculation 85 ml/min; Estimated Glomerular Filt Rate > 60; Glucose 96 mg/dL (65-105); Potassium 3.8 mmol/L (3.4-5.0); Sodium 141 mmol/L (137-145)
[2019-09-17 06:00] VITALS: BP 112/61; PULSE 72; RESP 16; TEMP 36.6; O2SAT 99
[2019-09-17 08:00] VITALS: PULSE 72; RESP 16; O2SAT 99
[2019-09-17] MEDS: SERTRALINE HCL 50 MG TABLET PO (09:41)
[2019-09-17] MEDS: buPROPion HCL XL (24 HR) 150 MG TABCR 300 MG PO (09:42)
[2019-09-17] MEDS: FAMOTIDINE 20 MG TABLET PO ×2 (09:43→20:28)
[2019-09-17] MEDS: NAPROXEN 500 MG TABLET PO ×2 (09:43→17:00)
[2019-09-17 14:00] VITALS: BP 104/60; PULSE 82; RESP 18; TEMP 36.5; O2SAT 100
[2019-09-17 20:10] VITALS: BP 131/74; PULSE 81; RESP 16; TEMP 36.6; O2SAT 96
[2019-09-17] MEDS: CLONAZEPAM 0.5 MG TAB 1 MG PO (20:28)
[2019-09-17] MEDS: MELATONIN 5 MG TABLET PO (20:29)
[2019-09-18] MEDS: BACLOFEN 5 MG TABLET PO (00:16)
[2019-09-18 04:35] VITALS: BP 96/59; PULSE 64; RESP 18; TEMP 36.4; O2SAT 100
[2019-09-18 08:00] VITALS: PULSE 64; RESP 18; O2SAT 100
[2019-09-18] MEDS: NAPROXEN 500 MG TABLET PO ×2 (08:38→17:14)
[2019-09-18] MEDS: FAMOTIDINE 20 MG TABLET PO ×2 (08:38→21:05)
[2019-09-18] MEDS: buPROPion HCL XL (24 HR) 150 MG TABCR 300 MG PO (08:38)
[2019-09-18] MEDS: SERTRALINE HCL 50 MG TABLET PO (08:38)
--- NOTE | 2019-09-18 10:08 | WPDNEURORHBP ---
Subjective Date/time seen: Dinaisonism with DBS with severe lumbar stenosis awaiting corghsk04/26/20 10:08 Functional Status Ambulation Ability Ability to Ambulate 10 Feet: Minimum Assistance X 1 Ability to Ambulate 50 Feet With 2 Turns: Contact Guard Ability to Ambulate 150 Feet: Contact Guard Ambulation Assistive Devices: Walker, Wheeled Transfers Ability Ability to Transfer In/Out of Chair: Standby Assistance Exam Const: General: cooperative, comfortable and no acute distress Nutritional Appearance: average body habitus Orientation/consciousness: patient oriented x3 Limitations: no limitations Eyes: General: appearance normal, both eyes and all related structures Neck: Neck: full ROM and no lymphadenopathy Resp: Effort & Inspection: normal respiratory effort Auscultation: clear to auscultation bilaterally Cardio: Rate: regular rate Rhythm: regular rhythm GI: Auscultation: normal bowel sounds Skin: General skin exam: no rashes or lesions noted Neuro: General: patient oriented x3 and moves all extremities Cranial nerves: Yes CN's II-XII intact bilaterally Cognition (Neuro): normal cognition Speech: normal speech Motor exam (neuro): 5/5 motor strength present throughout (4/5) and Motor fasciculations not present Coordination: [id number] test normal Psych: Appearance: grossly normal Affect: normal affect Attitude: cooperative Thought process: Normal thought process present Thought content: Yes Normal thought content present Insight: Good insight present (Psych) Judgement: Good judgement present (Psych) Objective Data Vital Signs Vital Signs: Vital Signs - 24 hr 09/17/19 14:00 09/17/19 20:10 09/18/19 04:35 Temperature 36.5 C 36.6 C 36.4 C Pulse Rate 82 81 64 Respiratory Rate 18 16 18 Blood Pressure 104/60 131/74 96/59 L Pulse Oximetry 100 96 100 Intake/Output Intake/Output: Intake & Output 09/15/19 09/16/19 09/17/19 09/18/19 23:59 23:59 23:59 23:59 Intake Total 840 720 720 Balance 840 720 720 Meds/Results Medications: Active Medications Generic Name Dose Route Start Last Admin Trade Name Freq PRN Reason Stop Dose Admin Baclofen 5 mg 09/09/19 11:10 09/18/19 00:16 Lioresal Po PO 5 mg HS PRN Administration Muscle Spasm Bupropion HCl 300 mg 09/10/19 09:00 09/18/19 08:38 Wellbutrin Xl (24 Hr) PO 300 mg QAM DEEJAY Administration Clonazepam 1 mg 09/09/19 21:00 09/17/19 20:28 Klonopin Tablet PO 1 mg HS DEEJAY Administration Famotidine 20 mg 09/09/19 21:00 09/18/19 08:38 Pepcid PO 20 mg Q12HR DEEJAY Administration Melatonin 5 mg 09/09/19 21:00 09/17/19 20:29 Melatonin PO 5 mg HS DEEJAY Administration Naproxen 500 mg 09/09/19 17:00 09/18/19 08:38 Naproxen PO 500 mg BID DEEJAY Administration Oxybutynin Chloride 5 mg 09/10/19 09:00 09/18/19 08:38 Ditropan Xl PO 5 mg DAILY DEEJAY Administration Senna/Docusate Sodium 1 tab 09/11/19 07:44 09/14/19 08:31 Senokot S Tablet PO 1 tab Q12HR PRN Administration Constipation Sertraline HCl 50 mg 09/10/19 09:00 09/18/19 08:38 Zoloft PO 50 mg DAILY DEEJAY Administration Progress Note: A&P Assessment and Plan (1) Depression: Code(s): F32.9 - Major depressive disorder, single episode, unspecified Status: Acute (2) Anxiety: Code(s): F41.9 - Anxiety disorder, unspecified Status: Acute (3) Insomnia: Code(s): G47.00 - Insomnia, unspecified Status: Acute (4) Multiple falls: Code(s): R29.6 - Repeated falls Status: Acute (5) Gait disorder: Code(s): R26.9 - Unspecified abnormalities of gait and mobility Status: Acute (6) Lumbar canal stenosis: Code(s): M48.061 - Spinal stenosis, lumbar region without neurogenic claudication Status: Acute (7) Parkinsons disease: Code(s): G20 - Parkinson's disease Status: Acute (8) Neuropathy, lumbosacral (radicular):
[2019-09-18 10:50] VITALS: BP 132/73; PULSE 98; RESP 18; TEMP 36.5; O2SAT 100
[2019-09-18 11:15] VITALS: BP 132/74; PULSE 100; RESP 18; TEMP 36.5; O2SAT 100
--- NOTE | 2019-09-18 13:52 | PC.NURSE ---
at 1045 PATIENT STATES SHE WAS TRYING TO GO FROM THE TOILET TO THE WHEELCHAIR AND FELT HER LEGS WERE GIVING OUT ON HER SO SHE HELD ONTO THE RAILING AND LOWERED HERSELF TO THE FLOOR. NO COMPLAINTS OF PAIN. PATIENT STATES SHE DID NOT HURT HERSELF OR HIT HER HEAD. VS WNL. DR. UMANA HERE TO SEE PATIENT. CONTINUE TO MONITOR. CALL LIGHT WITH REACH.
[2019-09-18 14:00] VITALS: BP 129/82; PULSE 92; RESP 18; TEMP 36.2; O2SAT 100
[2019-09-18] MEDS: SENNA/DOCUSATE SODIUM TABLET 1 TAB PO (17:14)
--- NOTE | 2019-09-18 18:31 | PC.NURSE ---
No complaints of pain. pt. rested in bed today. call light within reach, continue to monitor.
[2019-09-18] MEDS: CLONAZEPAM 0.5 MG TAB 1 MG PO (21:05)
[2019-09-18] MEDS: MELATONIN 5 MG TABLET PO (21:06)
[2019-09-18 22:00] VITALS: BP 140/90; PULSE 77; RESP 18; TEMP 36.2; O2SAT 98
[2019-09-19 06:00] VITALS: BP 115/69; PULSE 80; RESP 18; TEMP 36.7; O2SAT 98
[2019-09-19] MEDS: FAMOTIDINE 20 MG TABLET PO (09:34)
[2019-09-19] MEDS: NAPROXEN 500 MG TABLET PO (09:34)
[2019-09-19] MEDS: SERTRALINE HCL 50 MG TABLET PO (09:34)
[2019-09-19] MEDS: buPROPion HCL XL (24 HR) 150 MG TABCR 300 MG PO (09:34)
--- NOTE | 2019-09-21 14:21 | PM.DS ---
DS: Diagnosis Admitting Diagnosis Admitting Diagnosis: Radiculopathy, lumbar region Discharge Diagnosis (1) Depression: Code(s): F32.9 - Major depressive disorder, single episode, unspecified Status: Acute (2) Anxiety: Code(s): F41.9 - Anxiety disorder, unspecified Status: Acute (3) Insomnia: Code(s): G47.00 - Insomnia, unspecified Status: Acute (4) Multiple falls: Code(s): R29.6 - Repeated falls Status: Acute (5) Gait disorder: Code(s): R26.9 - Unspecified abnormalities of gait and mobility Status: Acute (6) Lumbar canal stenosis: Qualifiers: Neurogenic claudication status: unspecified Qualified Code(s): M48.061 - Spinal stenosis, lumbar region without neurogenic claudication Code(s): M48.061 - Spinal stenosis, lumbar region without neurogenic claudication Status: Acute (7) Parkinsons disease: Code(s): G20 - Parkinson's disease Status: Acute (8) Peripheral neuropathy: Code(s): G62.9 - Polyneuropathy, unspecified Status: Acute (9) Neuropathy, lumbosacral (radicular): Code(s): M54.17 - Radiculopathy, lumbosacral region Status: Acute DS: Summary Hospital Course Reason for hospitalization: the past patient was admitted with multiple issues as mentioned above she received physical therapy occupational therapy gait training and was able to achieve the following independent measures Hospital Course: the functional and independent measure was as follows eating independent, oral hygiene independent, toileting supervision, bathing supervision, upper body dressing set up, lower body dressing supervision, foot where supervision, drooling in bed independent sitting to lying lying to sitting independent [id number] supervision chair transfer supervision 12 transfer supervision car transfer supervision walking 10 feet supervision walking 50 feet with which turned with turns supervision walking 150 feet supervision walking 10 feet uneven surfaces supervision cover set up partial assistance, 4 steps partial stents, 12 steps partial status is, became above date supervision, wheelchair 50 feet independent wheelchair and 50 feet independent patient was sent home with home health with instructions to follow up for the lumbar canal stenosis her she did have 1 fall in the admission however no injuries were sustained Time Spent with Patient Time attestation: Total time spent providing and/or coordinating discharge services: Exam Const: General: comfortable and no acute distress HENMT: General nose exam: Normal nares present Mouth: Yes dry mucous membranes Eyes: General: appearance normal, both eyes and all related structures Neck: Neck: supple and no JVD Resp: Effort & Inspection: normal respiratory effort Auscultation: clear to auscultation bilaterally Cardio: Rate: regular rate Rhythm: regular rhythm GI: GI Palp: Yes Soft to palpation Auscultation: normal bowel sounds Skin: General skin exam: normal color and no rashes or lesions noted Neuro: Other: the parkinsonian signs were stable in fact gotten some better her gait was better she was able to walk much better but clearly does have evidence of neuropathy and radicular symptoms related lumbar canal stenosis with changes in the reflex and the sensory deficit however the all improved over stable Extrem: General: normal to inspection Psych: Mental Status: mental status grossly normal Discharge Plan Discharge Anticipated Discharge Date/Time: 09/18/19 13:00 Patient Disposition: Home Health Service Activity: no driving and as tolerated Diet: regular Discharge Instructions: Per Care Coordination: Home Health services have been arranged through [facility]. [facility] can be contacted at [phone]. Patient Instructions: Antibiotic Form, Pain Management (DC) Stand Alone Forms: General Discharge Information Follow-up
== END 2019-09-19 13:55 | disposition home health service (06) | DRG 552 ==
PROVIDERS: Admitting Provider Psychiatry & Neurology Neurology; PCP Family Medicine; Visit Provider Psychiatry & Neurology Neurology
DX: M54.17 Radiculopathy, lumbosacral region (principal); G20 Parkinson's disease; G62.9 Polyneuropathy, unspecified; M48.061 Spinal stenosis, lumbar region without neurogenic claudication; M62.81 Muscle weakness (generalized); F41.8 Other specified anxiety disorders; G47.00 Insomnia, unspecified; R26.9 Unspecified abnormalities of gait and mobility; R29.6 Repeated falls; Z87.891 Personal history of nicotine dependence; Z96.82 Presence of neurostimulator; Z98.1 Arthrodesis status
CPT/HCPCS: 36415; 80048; 85025; 97110; 97116; 97161; 97166; 97530; 97535; 97542; A9270; J1650

== ENCOUNTER 2019-09-19 15:31 | Emergency (ER) | payer MEDICARE, SELFPAY ==
[2019-09-19 15:32] VITALS: BP 139/95; PULSE 98; RESP 16; TEMP 37.2; O2SAT 97
--- NOTE | 2019-09-19 15:46 | ED.FALL ---
HPI - Fall General Chief Complaint: Fall Stated Complaint: Weakness Time Seen by Provider: 09/19/19 15:34 History of Present Illness HPI Narrative: Patient presents via EMS for fall. She was just discharged from rehab here at [facility]. She has spinal stenosis and generalized weakness. She also has Parkinson's. She completed her rehab, and was able to walk 50 feet with assistance. But she is failed to be discharged to home. complaint: fall Onset (ago): hour(s) Fall from: standing Fall witnessed: yes, by family Place fall occurred: home Loss of consciousness: none Prolonged down time: no Symptoms prior to fall: none Context: history of frequent falls Location of injury: other (Bilateral knee swelling with abrasion) Location of injury - extremities: Right: knee Severity: mild Quality: burning Associated symptoms (after fall): denies Related Data Allergies Allergy/AdvReac Type Severity Reaction Status Date / Time aspirin Allergy Unknown Unknown Unverified 09/17/19 19:51 oxycodone Allergy Unknown Unknown Verified 09/19/19 15:32 hydrocodone AdvReac Nausea and Verified 09/19/19 15:32 Vomiting prochlorperazine AdvReac Itching Verified 09/19/19 15:32 OXYCODONE HCL AdvReac Unknown Nausea and Uncoded 09/19/19 15:32 Vomiting Review of Systems Review of Systems: Narrative: CONSTITUTIONAL: Denies fever, chills, or sweats. EYES: Denies visual changes, redness, or discharge. ENT: Denies rhinorrhea, congestion, sore throat, or otalgia. CARDIOVASCULAR: Denies chest pain, palpitations, or edema. RESPIRATORY: Denies cough or dyspnea. GASTROINTESTINAL: Denies abdominal pain, nausea, vomiting, or diarrhea. GENITOURINARY: Denies dysuria or hematuria. SKIN: Denies rash or itching. MUSCULOSKELETAL: Denies joint pain, or myalgia. NEUROLOGIC: Denies headache. PSYCHIATRIC: Denies anxiety or depression. [facility] Past Medical History Medical History Anxiety Depression Gait disorder Insomnia Lumbar canal stenosis Parkinsons disease Family History Family History Mother Hypertension Family history of rheumatoid arthritis Father Family history of lung cancer Sibling Family history of lung cancer Social History Social History Smoking packs per day: 1 Smoking cigarettes per day: 20.0 Smoking status: Former smoker Tobacco type: cigarettes Second hand tobacco smoke exposure: Yes Smoking end date: 05/25/13 Alcohol intake: never Substance use: never Substance use type: does not use Gender identity (if verbalized by the patient): Female Spiritual care concerns: No Agree to blood products: Yes Exam Narrative: Exam Narrative: GENERAL: Well-appearing, well-nourished, and in no acute distress. HEAD: Normocephalic, atraumatic. EYES: PERRLA and EOMI. ENT: Nares clear, no rhinorrhea or epistaxis. Mucous membranes moist. NECK: Supple. CHEST: Clear to auscultation. No respiratory distress. HEART: Regular rate and rhythm. No murmur heard. Normal peripheral pulses. ABDOMEN: Soft, nontender, nondistended, normal active bowel sounds. EXTREMITIES: Both knees have mild swelling and bruising with superficial abrasions. SKIN: Warm, dry, no rash. NEURO: No focal deficits. Alert and oriented x3. PSYCH: Normal mood and affect. Course Course Emergency Course: Discussed case with the charge nurse, and she is going to call her talent acquisition program manager to see whether [facility] would be appropriate placement. She changed her mind and wants to go home. Vital Signs Vital signs: Vital Signs Temperature 99.0 F 09/19/19 15:32 Pulse Rate 98 09/19/19 15:32 Respiratory Rate 16 09/19/19 15:32 Blood Pressure 139/95 H 09/19/19 15:32 Pulse Oximetry 97 09/19/19 15:32 Temperature 99.0 F 09/19/19 15:32 Pulse Rate 95 09/19/19 15:52 Respiratory
[2019-09-19 15:52] VITALS: PULSE 95; RESP 16; O2SAT 96
[2019-09-19 15:53] LABS: Basophils Absolute Auto 0.1 K/mm3 (0.0-0.1); Basophils Percent Auto 0.8 % (0.2-1.2); Eosinophils Absolute Auto 0.1 K/mm3 (0-0.3); Eosinophils Percent Auto 1.5 % (0-4.4); Hematocrit 38.4 % (37.0-47.0); Hemoglobin 12.7 g/dL (12.0-15.0); Immature Granulocyte Absolute 0.02 K/mm3 (0.00-0.031); Immature Granulocyte Percent A 0.2 % (0-0.5); Lymphocytes Absolute Auto 1.26 K/mm3 (0.9-3.2); Lymphocytes Percent Auto 15.3 % (18.3-44.2); Mean Corpuscular HGB Conc 33.1 g/dl (32-36); Mean Corpuscular Hemoglobin 29.3 pg (26-34); Mean Corpuscular Volume 88.5 fl (80-100); Mean Platelet Volume 9.6 fl (7.4-10.4); Monocytes Absolute Auto 0.6 K/mm3 (0.1-0.6); Monocytes Percent Auto 7.2 % (2.6-8.5); Neutrophils Absolute Auto 6.2 K/mm3 (1.3-6.7); Platelet Count Result 251 k/mm3 (150-375); Red Blood Count 4.34 M/mm3 (4.2-5.4); Red Cell Distribution Width 12.6 % (11.5-14.5); White Blood Count 8.3 K/mm3 (4.5-10.0)
[2019-09-19 16:09] LABS: Alanine Aminotransferase 11 U/L (4-35); Albumin Level 4.2 g/dL (3.5-5.1); Alkaline Phosphatase 123 U/L (38-126); Aspartate Amino Transferase 24 U/L (14-36); Bilirubin,Total 0.4 mg/dL (0.2-1.3); Blood Urea Nitrogen 26 mg/dL (7-17); Calcium 9.5 mg/dL (8.4-10.2); Carbon Dioxide 25 mmol/L (22-30); Chloride 107 mmol/L (98-107); Estimated CRCL calculation 96 ml/min; Estimated Glomerular Filt Rate > 60; Glucose 115 mg/dL (65-105); Potassium 4.1 mmol/L (3.4-5.0); Sodium 142 mmol/L (137-145)
--- NOTE | 2019-09-19 16:38 | PCCCNOTE ---
Spoke with pt in ED Rm #3. Pt discharged from [facility] today and fell getting out of car at home and returned to ED. Discussed option of either trying home again with home health set up or SNF placement at [facility] in [place]. Pt initially choose [facility] placement and info sent to [facility] to get approval. Soon after pt changed mind and is going to try home again. Connor ([facility]) notified and pt told that she could still be considered at [facility] if home did not work out.
== END 2019-09-19 16:33 | disposition home or self-care (01) ==
PROVIDERS: Emergency Provider Emergency Medicine; PCP Family Medicine
DX: S80.212A Abrasion, left knee, initial encounter (principal); S80.211A Abrasion, right knee, initial encounter; G20 Parkinson's disease; M48.061 Spinal stenosis, lumbar region without neurogenic claudication; R29.6 Repeated falls; Z87.891 Personal history of nicotine dependence; R53.1 Weakness; W17.89XA Other fall from one level to another, initial encounter
CPT/HCPCS: 36415; 80053; 84443; 85025; 99283

== ENCOUNTER 2019-10-01 14:40 | IRF | payer MEDICARE, SELFPAY ==
[2019-10-01 14:40] VITALS: BP 106/74; PULSE 101; RESP 16; TEMP 37; O2SAT 96; BMI 29.4
[2019-10-01] MEDS: PAROXETINE 20 MG TABLET PO (20:09)
[2019-10-01] MEDS: CLONAZEPAM 0.5 MG TAB 1 MG PO (20:09)
[2019-10-01] MEDS: FAMOTIDINE 20 MG TABLET PO (20:10)
[2019-10-01] MEDS: TIZANIDINE HCL 4 MG TABLET PO (20:10)
[2019-10-01 22:00] VITALS: BP 116/71; PULSE 110; RESP 16; TEMP 36.9; O2SAT 94
--- NOTE | 2019-10-01 23:30 | PC.NURSE ---
asleep, no c/o, no distress
--- NOTE | 2019-10-02 02:36 | PC.NURSE ---
confused, thinks she is at [facility], reoriented, back to sleep
[2019-10-02 04:17] LABS: Ketones Urine 2+ mg/dL (Negative)
[2019-10-02 04:18] LABS: Add Urine Microscopic? YES; Appearance Urine Clear (Clear); Color Urine Yellow (Yellow)
[2019-10-02 04:19] LABS: Bilirubin Urine Negative (Negative); Blood Urine Trace (Negative); Glucose Urine UA Negative (Negative); Nitrate Urine Negative (Negative); Protein Urine Negative (Negative); Specific Grav Ur 1.015 (1.001-1.035)
[2019-10-02 04:20] LABS: Leukocyte Esterase Ur Negative LEU/UL (Negative); Squamous Epithelial Cell Urine Occasional /hpf (Few); WBC Urine 0-3 /hpf (0-3)
[2019-10-02 04:37] LABS: Basophils Percent Auto 0.4 % (0.2-1.2); Eosinophils Percent Auto 0.4 % (0-4.4); Hematocrit 32.6 % (37.0-47.0); Hemoglobin 11.2 g/dL (12.0-15.0); Immature Granulocyte Absolute 0.04 K/mm3 (0.00-0.031); Immature Granulocyte Percent A 0.4 % (0-0.5); Lymphocytes Absolute Auto 1.14 K/mm3 (0.9-3.2); Lymphocytes Percent Auto 10.8 % (18.3-44.2); Mean Corpuscular HGB Conc 34.4 g/dl (32-36); Mean Corpuscular Hemoglobin 29.7 pg (26-34); Mean Corpuscular Volume 86.5 fl (80-100); Mean Platelet Volume 9.9 fl (7.4-10.4); Monocytes Percent Auto 9.3 % (2.6-8.5); Neutrophils Absolute Auto 8.3 K/mm3 (1.3-6.7); Neutrophils Percent Auto 78.7 % (45.5-73.1); Platelet Count Result 211 k/mm3 (150-375); Red Blood Count 3.77 M/mm3 (4.2-5.4); Red Cell Distribution Width 12.4 % (11.5-14.5); White Blood Count 10.6 K/mm3 (4.5-10.0)
[2019-10-02 04:50] LABS: Blood Urea Nitrogen 15 mg/dL (7-17); Calcium 9.1 mg/dL (8.4-10.2); Carbon Dioxide 26 mmol/L (22-30); Chloride 104 mmol/L (98-107); Estimated CRCL calculation 109 ml/min; Estimated Glomerular Filt Rate > 60; Glucose 121 mg/dL (65-105); Potassium 3.6 mmol/L (3.4-5.0); Sodium 138 mmol/L (137-145)
[2019-10-02 06:00] VITALS: BP 124/72; PULSE 107; RESP 16; TEMP 36.8; O2SAT 95
[2019-10-02] MEDS: buPROPion HCL XL (24 HR) 150 MG TABCR 300 MG PO (09:41)
[2019-10-02] MEDS: ENOXAPARIN 30 MG/0.3 ML SYRINGE SUB-Q (09:42)
[2019-10-02] MEDS: FAMOTIDINE 20 MG TABLET PO ×2 (09:42→21:14)
[2019-10-02] MEDS: polyethylene glycoL 3350 17 GM POWD.PACK PO (09:42)
[2019-10-02 14:00] VITALS: BP 133/74; PULSE 111; RESP 16; TEMP 36.9; O2SAT 94
[2019-10-02 15:01] VITALS: BP 133/74; PULSE 111; RESP 16; TEMP 36.9; O2SAT 94
[2019-10-02] MEDS: QUEtiapine FUMARATE 12.5 MG TABLET PO (17:23)
--- NOTE | 2019-10-02 18:13 | PC.NURSE ---
5pm: Patient needs frequent supervision and orientation, setting off alarms with swinging legs off side of bed and stating things that make no sense or stating she is trying to get up but cannot tell you why. Talking to people not there and having visual and audio hallucinations. Tramadol has been DC'd per Dr. Pena and started on Seroquel every evening at 6pm starting this evening.
--- NOTE | 2019-10-02 18:31 | REHAB_ITS ---
DATE OF SERVICE: 10/01/2019 The patient was admitted to rehab floor on 10/01/2019 and examined by this physician on 10/02/2019 at 11 o'clock in the morning. PRIMARY REHABILITATION IMPAIRMENT CATEGORY: Neurological condition, etiological diagnosis of lumbar stenosis with neurogenic claudication. HISTORY OF PRESENT ILLNESS: A 49-year-old presented to [facility] on 09/06 with complaints of recurrent falls, painful and weak bilateral lower extremities. In addition to the history of Parkinson's disease for which patient has undergone DBS by Dr. Hernandez in 1998. In addition to the history of L4-L5 ALIF/PCT by Dr. Gomez in April of 2016. She suffered a mechanical fall 6 weeks ago, but recovered from the fall without medical evaluation. On the day of admission, she initially fell while at work and her right lower extremity gave out from under her and she had two subsequent falls. After the 3rd fall, she reported she could not walk without assistance or a walker. She started feeling pain in her buttocks, groin, outer and anterior thighs, which is stopped at mid thigh and no pain down the posterior thigh or outer leg. She denied loss of consciousness with any of her falls. CT scan of the entire spine was negative for any fracture, but CT myelogram demonstrated partial myelographic block at L2-3 with patient stating aggravation of symptoms similar to her ongoing pain and postoperative changes or posterior instrumented interbody spine fusion at L4-5 on the background of multilevel lumbar spine degenerative changes with most advanced at L2-3 and to a lesser extent L3-4. At this stage, neurosurgical service was consulted and her symptomatology was initially attributed to meralgia paresthetica. They ordered the bladder scan and labs. She was placed on a low dose of levodopa twice a day, which was helping her bladder urgency. As per the Neurology, she was having poor appetite, fatigue, constipation, urinary frequency, myalgias, cramping, tremor, dysphoria, postural instability and anxiety. Her typical gait was slow, shuffling with short steps. At this stage, her UA was negative. The patient required monitoring for anemia and elevated BUN. She required neurology service for monitoring for adverse reaction to all the new medication in conjunction with active Parkinson's disease, hypotension, pain management though she was awake, alert, and oriented x3, was complaining of lower extremity pain, decreased strength, endurance, decreased balance, shuffling gait. She was discharged to rehab on Lovenox daily for DVT prophylaxis. She completed an inpatient rehab stay and went home with supervision for ADL, transfers, ambulation on 09/18/2019. She fell on 09/19/2019, and presented to [facility]. She was evaluated and sent home, then she presented to [facility] on 09/28/2019, for an elective surgical intervention. She underwent lumbar posterior laminectomy and bilateral medial facetectomy at L2-3 and on 09/28/2019, with Dr. Jesus Kendrick. Postoperatively, she complained of pain, became anemic, required pain medication, though she was hemodynamically stable. She needed the physical therapy and occupational therapy, return to independent prior level of functioning, so she was discharged to this rehab on Lovenox for DVT prophylaxis again. She has not traveled outside the [place] or had contact with someone, who is ill that has traveled outside the [place] in the past 21 days. She has not traveled to an area of the [place] that experiencing known transmission of the coronavirus and has not had close personal contact with anyone that has. She does not have a fever, does have a lower respiratory illness symptom. Her therapy was initiated on the acute care facility and she was transferred to [facility] from [place] on 09/30/2019. The jen
[2019-10-02] MEDS: TIZANIDINE HCL 4 MG TABLET PO (21:14)
[2019-10-02] MEDS: PAROXETINE 20 MG TABLET PO (21:17)
[2019-10-02] MEDS: CLONAZEPAM 0.5 MG TAB 1 MG PO (21:19)
[2019-10-02 22:00] VITALS: BP 124/66; PULSE 62; RESP 16; TEMP 37; O2SAT 95
[2019-10-03 06:00] VITALS: BP 94/59; PULSE 97; RESP 18; TEMP 36.6; O2SAT 96
[2019-10-03] MEDS: buPROPion HCL XL (24 HR) 150 MG TABCR 300 MG PO (09:24)
[2019-10-03] MEDS: polyethylene glycoL 3350 17 GM POWD.PACK PO (09:35)
[2019-10-03] MEDS: ENOXAPARIN 30 MG/0.3 ML SYRINGE SUB-Q (09:36)
[2019-10-03] MEDS: FAMOTIDINE 20 MG TABLET PO ×2 (09:56→20:39)
[2019-10-03 12:37] VITALS: BMI 29.4
[2019-10-03] MEDS: ACETAMINOPHEN 500 MG TABLET PO (13:28)
--- NOTE | 2019-10-03 13:30 | RPD ---
INDIVIDUALIZED PLAN OF CARE FOR Shilpi Benites Brief Synthesis of Pre-Admission Screen, Post-Admission Evaluation and Therapy Evaluations: The patient presents to rehab with Lumbar stenosis with neurogenic claudication. 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 The patient requires for physician monitoring and treatment for adverse reactions to new medications in conjunction with her active Parkinson's disease, hypotension, and pain management. The patient requires nursing services for frequent neuro checks, anticoagulation therapy, medication management and education, pressure relief and skin care management, monitoring of labs, and fall/safety precautions. 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 Treatments may include: Therapeutic Exercise, Gait Training, Neuromuscular Re-education, Transfer Training, Community Reintegration, Bed Mobility, Patient/Family Education, Wheelchair Mobility Group Therapy/Concurrent Therapy Rationales: -Improve attention span during functional activities in a distracted environment. -Enhance problem solving and/or adequate judgment skills during functional activities in a distracted environment. -Promote increased safety awareness in a distracted environment to reduce fall risk with functional tasks, transfers, and ambulation to allow a more safe, self-sufficient return to the home environment. -Improve dynamic balance skills to promote safety and independence with functional activities in a distracted environment for maximum gain. Occupational Therapy: 5 days per week for 90 minutes. Treatments may include: Therapeutic Exercise, Therapeutic Activity, Cognitive Training, Self-Care Transfer Training, Community Reintegration, Home Management, Patient/Family Education, Wheelchair Mobility Training, Energy Conservation Training Group Therapy/Concurrent Therapy Rationales: -Allow therapist to observe and teach generalization and carry-over of skills learned in individual therapy. -Enhance problem solving and sequencing skills during therapeutic activities in a distracted environment. -Promote increased safety awareness in a realistic setting to reduce fall risk with functional tasks due to visual and verbal distractions. -Increase functional level with ADLs, ADL transfers and use of adaptive equipment through therapeutic activities with others while promoting safety to allow a more safe, self-sufficient return home. Medical Prognosis: Good Anticipated Length of Stay: 14 days Rehab Goals: Eating Goal: 06-Independent Oral Hygiene Goal: 06-Independent Toileting Hygiene Goal: 06-Independent Shower/Bathe Self Goal: 05-Setup or Clean Up Assistance Upper Body Dressing Goal: 06-Independent Lower Body Dressing Goal: 06-Independent Putting On/Taking Off Footwear Goal: 06-Independent Rolling Left and Right Goal: 06-Independent Sit to Lying Goal: 06-Independent Lying to Sitting on Side of Bed Goal: 06-Independent Sit to Stand Goal: 06-Independent Chair/[id number] Transfer Goal: 06-Independent Toilet Transfer Goal: 06-Independent Car Transfer Goal: 06-Independent Walk 10' Goal: 04-Supervision or Touching Assistance Walk 50' with Two Turns Goal: 04-Supervision
[2019-10-03 14:00] VITALS: BP 118/91; PULSE 95; RESP 18; TEMP 37; O2SAT 98
[2019-10-03] MEDS: QUEtiapine FUMARATE 12.5 MG TABLET PO (17:07)
--- NOTE | 2019-10-03 17:34 | WPDNEURORHBP ---
Subjective Date/time seen: lumbar stenosis with neurogenic claudication along with anxiety and depressionand parkinson [id number]/11/20 17:34 Review of Systems Review of Systems: All systems reviewed & are unremarkable except as noted in HPI and below Functional Status Ambulation Ability Ability to Ambulate 10 Feet: Minimum Assistance X 1 Ambulation Assistive Devices: Parallel Bars Transfers Ability Ability to Transfer In/Out of Chair: Moderate Assistance X 1 Exam Const: General: cooperative and comfortable Orientation/consciousness: oriented to person, oriented to place and oriented to time Eyes: General: appearance normal, both eyes and all related structures Neck: Neck: full ROM Resp: Effort & Inspection: normal respiratory effort Auscultation: clear to auscultation bilaterally Cardio: Rate: regular rate Neuro: General: patient oriented x3, moves all extremities and no meningeal signs Cranial nerves: Yes CN's II-XII intact bilaterally, Yes Equal, round and reactive pupils present, Yes Bilaterally intact EOM present, Yes Nystagmus not present, Yes Normal facial strength present, Yes Midline tongue present, Yes Symmetric palate elevation present, Yes Ability to bilaterally rotate head present and Yes Ability to bilaterally elevate shoulders present Cognition (Neuro): normal cognition Speech: normal speech Motor exam (neuro): Abnormal motor strength present Psych: Mental Status: mental status grossly normal Speech and movement: Normal speech and movement present Affect: normal affect Attitude: cooperative Thought process: Normal thought process present Thought content: Yes Normal thought content present and Yes Hallucination(s) present (yesterday today much better) Insight: Good insight present (Psych) Judgement: Good judgement present (Psych) Objective Data Vital Signs Vital Signs: Vital Signs - 24 hr 10/02/19 22:00 10/03/19 06:00 10/03/19 14:00 Temperature 37.0 C 36.6 C 37.0 C Pulse Rate 62 97 95 Respiratory Rate 16 18 18 Blood Pressure 124/66 94/59 L 118/91 H Pulse Oximetry 95 96 98 Intake/Output Intake/Output: Intake & Output 09/30/19 10/01/19 10/02/19 10/03/19 23:59 23:59 23:59 23:59 Intake Total 100 700 480 Balance 100 700 480 Meds/Results Medications: Active Medications Generic Name Dose Route Start Last Admin Trade Name Freq PRN Reason Stop Dose Admin Acetaminophen 500 mg 10/01/19 15:36 10/03/19 13:28 Tylenol Tablet PO 500 mg Q6H PRN Administration Pain Baclofen 10 mg 10/01/19 21:00 Lioresal Po PO HS PRN Muscle Spasm Bisacodyl 10 mg 10/01/19 15:36 Dulcolax Suppository RECTAL DAILY PRN Constipation Bupropion HCl 300 mg 10/02/19 09:00 10/03/19 09:24 Wellbutrin Xl (24 Hr) PO 300 mg QAM DEEJAY Administration Clonazepam 1 mg 10/01/19 21:00 10/02/19 21:19 Klonopin Tablet PO 1 mg HS DEEJAY Administration Enoxaparin Sodium 30 mg 10/02/19 09:00 10/03/19 09:36 Lovenox SUB-Q 30 mg DAILY DEEJAY Administration Famotidine 20 mg 10/01/19 21:00 10/03/19 09:56 Pepcid PO 20 mg Q12HR DEEJAY Administration Non-Formulary Medication 1 applic 10/01/19 15:42 [place] Tar TOPICAL DAILY PRN scalp flaking Oxybutynin Chloride 5 mg 10/02/19 09:00 10/03/19 09:36 Ditropan Xl PO 5 mg DAILY DEEJAY Administration Paroxetine HCl 20 mg 10/01/19 21:00 10/02/19 21:17 Paxil PO 20 mg HS DEEJAY Administration Polyethylene Glycol 17 gm 10/02/19 09:00 10/03/19 09:35 Miralax PO 17 gm DAILY DEEJAY Administration Quetiapine Fumarate 12.5 mg 10/02/19 18:00 10/03/19 17:07 Seroquel PO 12.5 mg EVENING DEEJAY Administration Tizanidine HCl 4 mg 10/01/19 15:36 10/02/19 21:14 Zanaflex PO 4 mg TID PRN Administration Muscle Spasm Progress Note: A&P Assessment and Plan (1) Depression: Code(s): F32.9 - Major depressive disorder, single episode, unspecified
[2019-10-03] MEDS: PAROXETINE 20 MG TABLET PO (20:39)
[2019-10-03] MEDS: CLONAZEPAM 0.5 MG TAB 1 MG PO (20:39)
[2019-10-03 22:00] VITALS: BP 134/74; PULSE 88; RESP 20; TEMP 36.8; O2SAT 98
[2019-10-04 06:00] VITALS: BP 154/6; PULSE 88; RESP 18; TEMP 37.2; O2SAT 99
[2019-10-04] MEDS: buPROPion HCL XL (24 HR) 150 MG TABCR 300 MG PO (08:24)
[2019-10-04] MEDS: ENOXAPARIN 30 MG/0.3 ML SYRINGE SUB-Q (08:24)
[2019-10-04] MEDS: FAMOTIDINE 20 MG TABLET PO ×2 (08:24→20:23)
[2019-10-04] MEDS: polyethylene glycoL 3350 17 GM POWD.PACK PO (08:25)
[2019-10-04] MEDS: ACETAMINOPHEN 500 MG TABLET PO (12:30)
[2019-10-04 14:00] VITALS: BP 103/78; PULSE 97; RESP 18; TEMP 37.1; O2SAT 98
--- NOTE | 2019-10-04 16:09 | WPDNEURORHBP ---
Subjective Date/time seen: 10/04/19 16:09 Interval history: this 49-year-old woman is here after having had surgery performed and made the November 12, 2019 when she had posterior laminectomy and bilateral medial facetectomy at L2-L3 level. Her pain is better but she is having some drainage from the incision we to the picture of these and sent to the treating surgeons of his the head calls back and said she should be on Keflex for a week and will keep them informed she denies any headache nausea vomiting chest pain shortness of breath fever chills sore throat on anything suggest an ongoing infection Review of Systems Review of Systems: All systems reviewed & are unremarkable except as noted in HPI and below Functional Status Ambulation Ability Ability to Ambulate 10 Feet: Minimum Assistance X 1 Ability to Ambulate 50 Feet With 2 Turns: Minimum Assistance X 1 Ability to Ambulate 150 Feet: Minimum Assistance X 1 Ambulation Assistive Devices: Walker, Wheeled Transfers Ability Ability to Transfer In/Out of Chair: Minimum Assistance X 1 Exam Const: General: comfortable and no acute distress HENMT: General nose exam: Normal nares present Mouth: Yes moist mucous membranes Eyes: General: appearance normal, both eyes and all related structures Neck: Neck: supple and no JVD Resp: Effort & Inspection: normal respiratory effort Auscultation: clear to auscultation bilaterally Cardio: Rate: regular rate Rhythm: regular rhythm GI: GI Palp: Yes Soft to palpation Auscultation: normal bowel sounds Skin: General skin exam: normal color and no rashes or lesions noted Neuro: Other: she is awake and alert well oriented time place and person has normal speech and language function except slow monotonous speech mild tremor mild rigidity and bradykinesia which is stable her strength in the lower extremities slowly getting better she is able to walk with a walker better and she is happy with the surgery she has had performed Extrem: General: normal to inspection Psych: Mental Status: mental status grossly normal Objective Data Vital Signs Vital Signs: Vital Signs - 24 hr 10/03/19 22:00 10/04/19 06:00 10/04/19 14:00 Temperature 36.8 C 37.2 C 37.1 C Pulse Rate 88 88 97 Respiratory Rate 20 18 18 Blood Pressure 134/74 154/6 H 103/78 Pulse Oximetry 98 99 98 Intake/Output Intake/Output: Intake & Output 10/01/19 10/02/19 10/03/19/12/20 23:59 23:59 23:59 23:59 Intake Total 100 700 720 480 Balance 100 700 720 480 Meds/Results Medications: Active Medications Generic Name Dose Route Start Last Admin Trade Name Freq PRN Reason Stop Dose Admin Acetaminophen 500 mg 10/01/19 15:36 10/04/19 12:30 Tylenol Tablet PO 500 mg Q6H PRN Administration Pain Baclofen 10 mg 10/01/19 21:00 Lioresal Po PO HS PRN Muscle Spasm Bisacodyl 10 mg 10/01/19 15:36 Dulcolax Suppository RECTAL DAILY PRN Constipation Bupropion HCl 300 mg 10/02/19 09:00 10/04/19 08:24 Wellbutrin Xl (24 Hr) PO 300 mg QAM DEEJAY Administration Cephalexin HCl 500 mg 10/04/19 21:00 Keflex Capsule PO 10/11/19 09:01 Q12HR DEEJAY Clonazepam 1 mg 10/01/19 21:00 10/03/19 20:39 Klonopin Tablet PO 1 mg HS DEEJAY Administration Enoxaparin Sodium 30 mg 10/02/19 09:00 10/04/19 08:24 Lovenox SUB-Q 30 mg DAILY DEEJAY Administration Famotidine 20 mg 10/01/19 21:00 10/04/19 08:24 Pepcid PO 20 mg Q12HR DEEJAY Administration Non-Formulary Medication 1 applic 10/01/19 15:42 [place] Tar TOPICAL DAILY PRN scalp flaking Oxybutynin Chloride 5 mg 10/02/19 09:00 10/04/19 08:25 Ditropan Xl PO 5 mg DAILY DEEJAY Administration Paroxetine HCl 20 mg 10/01/19 21:00 10/03/19 20:39 Paxil PO 20 mg HS DEEJAY Administration Polyethylene Glycol 17 gm 10/02/19 09:00 10/04/19 08:25 Miralax PO 17 gm DAILY DEEJAY Administration Quetiapine Fumarate 12.5 mg 10/02/19
[2019-10-04] MEDS: QUEtiapine FUMARATE 12.5 MG TABLET PO (18:01)
[2019-10-04] MEDS: PAROXETINE 20 MG TABLET PO (20:23)
[2019-10-04] MEDS: CLONAZEPAM 0.5 MG TAB 1 MG PO (20:24)
[2019-10-04] MEDS: CEPHALEXIN 500 MG CAPSULE PO (20:24)
[2019-10-04 22:00] VITALS: BP 121/75; PULSE 91; RESP 18; TEMP 37.3; O2SAT 98
[2019-10-05 06:00] VITALS: BP 123/79; PULSE 100; RESP 18; TEMP 36.8; O2SAT 98
[2019-10-05] MEDS: buPROPion HCL XL (24 HR) 150 MG TABCR 300 MG PO (09:50)
[2019-10-05] MEDS: CEPHALEXIN 500 MG CAPSULE PO ×2 (09:50→20:11)
[2019-10-05] MEDS: FAMOTIDINE 20 MG TABLET PO ×2 (09:50→20:11)
[2019-10-05] MEDS: ENOXAPARIN 30 MG/0.3 ML SYRINGE SUB-Q (09:51)
[2019-10-05] MEDS: polyethylene glycoL 3350 17 GM POWD.PACK PO (09:51)
[2019-10-05] MEDS: ACETAMINOPHEN 500 MG TABLET PO (11:58)
[2019-10-05] MEDS: TIZANIDINE HCL 4 MG TABLET PO (11:59)
--- NOTE | 2019-10-05 13:50 | WPDNEURORHBP ---
Subjective Date/time seen: 10/05/19 13:50 Interval history: this 49-year-old woman is doing remarkably well walking several 100 feet after having had the surgery for the lumbar canal stenosis at L2-3 level her incision has little drainage which we have been in touch with the treating surgeon and she is being treated with the antibiotics she denies any headache nausea vomiting fever chills or sore throat Review of Systems Review of Systems: All systems reviewed & are unremarkable except as noted in HPI and below Functional Status Ambulation Ability Ability to Ambulate 10 Feet: Minimum Assistance X 1 Ability to Ambulate 50 Feet With 2 Turns: Minimum Assistance X 1 Ability to Ambulate 150 Feet: Minimum Assistance X 1 Ambulation Assistive Devices: Walker, Wheeled Transfers Ability Ability to Transfer In/Out of Chair: Minimum Assistance X 1 Exam Const: General: comfortable and no acute distress HENMT: General nose exam: Normal nares present Mouth: Yes moist mucous membranes Eyes: General: appearance normal, both eyes and all related structures Neck: Neck: supple and no JVD Resp: Effort & Inspection: normal respiratory effort Auscultation: clear to auscultation bilaterally Cardio: Rate: regular rate Rhythm: regular rhythm GI: GI Palp: Yes Soft to palpation Auscultation: normal bowel sounds Back/Spine/Pelvis: Other: the incision of the lower back is relatively clean the little drainage but no sign of clinical infection Skin: General skin exam: normal color Neuro: Other: her neurological status as for the Parkinson's disease is concerned is stable and her lower extremity weakness slowly improving with evidence of the depressed reflexes and sensory deficit as documented before Extrem: General: normal to inspection Psych: Mental Status: mental status grossly normal Objective Data Vital Signs Vital Signs: Vital Signs - 24 hr 10/04/19 14:00 10/04/19 22:00 10/05/19 06:00 Temperature 37.1 C 37.3 C 36.8 C Pulse Rate 97 91 100 Respiratory Rate 18 18 18 Blood Pressure 103/78 121/75 123/79 Pulse Oximetry 98 98 98 Intake/Output Intake/Output: Intake & Output 10/02/19 10/03/19 10/04/19 10/05/19 23:59 23:59 23:59 23:59 Intake Total 700 720 720 600 Balance 700 720 720 600 Meds/Results Medications: Active Medications Generic Name Dose Route Start Last Admin Trade Name Freq PRN Reason Stop Dose Admin Acetaminophen 500 mg 10/01/19 15:36 10/05/19 11:58 Tylenol Tablet PO 500 mg Q6H PRN Administration Pain Baclofen 10 mg 10/01/19 21:00 Lioresal Po PO HS PRN Muscle Spasm Bisacodyl 10 mg 10/01/19 15:36 Dulcolax Suppository RECTAL DAILY PRN Constipation Bupropion HCl 300 mg 10/02/19 09:00 10/05/19 09:50 Wellbutrin Xl (24 Hr) PO 300 mg QAM DEEJAY Administration Cephalexin HCl 500 mg 10/04/19 21:00 10/05/19 09:50 Keflex Capsule PO 10/11/19 09:01 500 mg Q12HR DEEJAY Administration Clonazepam 1 mg 10/01/19 21:00 10/04/19 20:24 Klonopin Tablet PO 1 mg HS DEEJAY Administration Enoxaparin Sodium 30 mg 10/02/19 09:00 10/05/19 09:51 Lovenox SUB-Q 30 mg DAILY DEEJAY Administration Famotidine 20 mg 10/01/19 21:00 10/05/19 09:50 Pepcid PO 20 mg Q12HR DEEJAY Administration Non-Formulary Medication 1 applic 10/01/19 15:42 [place] Tar TOPICAL DAILY PRN scalp flaking Oxybutynin Chloride 5 mg 10/02/19 09:00 10/05/19 09:51 Ditropan Xl PO 5 mg DAILY DEEJAY Administration Paroxetine HCl 20 mg 10/01/19 21:00 10/04/19 20:23 Paxil PO 20 mg HS DEEJAY Administration Polyethylene Glycol 17 gm 10/02/19 09:00 10/05/19 09:51 Miralax PO 17 gm DAILY DEEJAY Administration Tizanidine HCl 4 mg 10/01/19 15:36 10/05/19 11:59 Zanaflex PO 4 mg TID PRN Administration Muscle Spasm Progress Note: A&P Assessment and Plan (1) Lumbar canal stenosis: Code(s): M48.061 - Spinal priscilla
[2019-10-05 14:00] VITALS: BP 113/64; PULSE 78; RESP 17; TEMP 36.9; O2SAT 99
[2019-10-05] MEDS: PAROXETINE 20 MG TABLET PO (20:11)
[2019-10-05] MEDS: CLONAZEPAM 0.5 MG TAB 1 MG PO (20:11)
[2019-10-05 22:00] VITALS: BP 109/66; PULSE 86; RESP 16; TEMP 37; O2SAT 97
[2019-10-06 06:00] VITALS: BP 94/51; PULSE 83; RESP 17; TEMP 36.7; O2SAT 98
[2019-10-06] MEDS: ENOXAPARIN 30 MG/0.3 ML SYRINGE SUB-Q (10:33)
[2019-10-06] MEDS: CEPHALEXIN 500 MG CAPSULE PO ×2 (10:33→20:19)
[2019-10-06] MEDS: buPROPion HCL XL (24 HR) 150 MG TABCR 300 MG PO (10:33)
[2019-10-06] MEDS: FAMOTIDINE 20 MG TABLET PO ×2 (10:34→20:19)
[2019-10-06] MEDS: polyethylene glycoL 3350 17 GM POWD.PACK PO (10:34)
[2019-10-06 14:00] VITALS: BP 104/65; PULSE 85; RESP 18; TEMP 36.8; O2SAT 97
[2019-10-06] MEDS: ACETAMINOPHEN 500 MG TABLET PO (18:51)
[2019-10-06] MEDS: PAROXETINE 20 MG TABLET PO (20:19)
[2019-10-06] MEDS: CLONAZEPAM 0.5 MG TAB 1 MG PO (20:20)
[2019-10-06 22:00] VITALS: BP 102/55; PULSE 89; RESP 18; TEMP 37.2; O2SAT 98
[2019-10-07 06:00] VITALS: BP 112/66; PULSE 79; RESP 17; TEMP 36.4; O2SAT 98
[2019-10-07 08:00] VITALS: PULSE 79; RESP 17; O2SAT 98
[2019-10-07] MEDS: buPROPion HCL XL (24 HR) 150 MG TABCR 300 MG PO (09:31)
[2019-10-07] MEDS: CEPHALEXIN 500 MG CAPSULE PO ×2 (09:31→22:01)
[2019-10-07] MEDS: FAMOTIDINE 20 MG TABLET PO ×2 (09:32→22:02)
[2019-10-07] MEDS: polyethylene glycoL 3350 17 GM POWD.PACK PO (09:32)
[2019-10-07] MEDS: ENOXAPARIN 30 MG/0.3 ML SYRINGE SUB-Q (09:32)
[2019-10-07 14:00] VITALS: BP 114/68; PULSE 88; RESP 16; TEMP 36.4; O2SAT 97
--- NOTE | 2019-10-07 14:18 | WPDNEURORHBP ---
Subjective Date/time seen: 10/07/19 14:18 Interval history: this 49-year-old woman is here after having had surgery for lumbar canal stenosis there is still little drainage of the side of the surgery however no fever no chills no sore throat she is on Keflex her Parkinson's disease is stable she has been able to walk 500 feet and we will discontinue her Lovenox she denies any headache nausea vomiting chest pain shortness of breath fever chills or sore throat Review of Systems Review of Systems: All systems reviewed & are unremarkable except as noted in HPI and below Functional Status Ambulation Ability Ability to Ambulate 10 Feet: Standby Assistance Ability to Ambulate 50 Feet With 2 Turns: Standby Assistance Ability to Ambulate 150 Feet: Standby Assistance Ambulation Assistive Devices: Walker, Wheeled Transfers Ability Ability to Transfer In/Out of Chair: Standby Assistance Exam Const: General: comfortable and no acute distress HENMT: General nose exam: Normal nares present Mouth: Yes moist mucous membranes Eyes: General: appearance normal, both eyes and all related structures Neck: Neck: supple and no JVD Resp: Effort & Inspection: normal respiratory effort Auscultation: clear to auscultation bilaterally Cardio: Rate: regular rate Rhythm: regular rhythm GI: GI Palp: Yes Soft to palpation Auscultation: normal bowel sounds Skin: General skin exam: normal color and no rashes or lesions noted Neuro: Other: patient remains awake and alert mentally with normal examination stable Parkinson's disease and improving strength lower extremities more so than the upper extremities with depressed reflexes and sensory deficit in the lower extremities Extrem: General: normal to inspection Psych: Mental Status: mental status grossly normal Objective Data Vital Signs Vital Signs: Vital Signs - 24 hr 10/06/19 22:00 10/07/19 06:00 10/07/19 08:00 Temperature 37.2 C 36.4 C Pulse Rate 89 79 79 Respiratory Rate 18 17 17 Blood Pressure 102/55 L 112/66 Pulse Oximetry 98 98 98 Intake/Output Intake/Output: Intake & Output 10/04/19 10/05/19 10/06/19 10/07/19 23:59 23:59 23:59 23:59 Intake Total 720 840 720 240 Balance 720 840 720 240 Meds/Results Medications: Active Medications Generic Name Dose Route Start Last Admin Trade Name Freq PRN Reason Stop Dose Admin Acetaminophen 500 mg 10/01/19 15:36 10/06/19 18:51 Tylenol Tablet PO 500 mg Q6H PRN Administration Pain Baclofen 10 mg 10/01/19 21:00 Lioresal Po PO HS PRN Muscle Spasm Bisacodyl 10 mg 10/01/19 15:36 Dulcolax Suppository RECTAL DAILY PRN Constipation Bupropion HCl 300 mg 10/02/19 09:00 10/07/19 09:31 Wellbutrin Xl (24 Hr) PO 300 mg QAM DEEJAY Administration Cephalexin HCl 500 mg 10/04/19 21:00 10/07/19 09:31 Keflex Capsule PO 10/11/19 09:01 500 mg Q12HR DEEJAY Administration Clonazepam 1 mg 10/01/19 21:00 10/06/19 20:20 Klonopin Tablet PO 1 mg HS DEEJAY Administration Famotidine 20 mg 10/01/19 21:00 10/07/19 09:32 Pepcid PO 20 mg Q12HR DEEJAY Administration Non-Formulary Medication 1 applic 10/01/19 15:42 [place] Tar TOPICAL DAILY PRN scalp flaking Oxybutynin Chloride 5 mg 10/02/19 09:00 10/07/19 09:31 Ditropan Xl PO 5 mg DAILY DEEJAY Administration Paroxetine HCl 20 mg 10/01/19 21:00 10/06/19 20:19 Paxil PO 20 mg HS DEEJAY Administration Polyethylene Glycol 17 gm 10/02/19 09:00 10/07/19 09:32 Miralax PO 17 gm DAILY DEEJAY Administration Tizanidine HCl 4 mg 10/01/19 15:36 10/05/19 11:59 Zanaflex PO 4 mg TID PRN Administration Muscle Spasm Progress Note: A&P Assessment and Plan (1) Lumbar canal stenosis: Code(s): M48.061 - Spinal stenosis, lumbar region without neurogenic claudication Status: Acute (2) S/P lumbar laminectomy: Code(s): Z98.890 - Other specified postprocedur
[2019-10-07 21:12] VITALS: BP 110/63; PULSE 82; RESP 16; TEMP 36.8; O2SAT 99
[2019-10-07] MEDS: PAROXETINE 20 MG TABLET PO (22:01)
[2019-10-07] MEDS: CLONAZEPAM 0.5 MG TAB 1 MG PO (22:04)
[2019-10-08 06:09] VITALS: BP 99/46; PULSE 84; RESP 16; TEMP 36.9; O2SAT 98
[2019-10-08] MEDS: CEPHALEXIN 500 MG CAPSULE PO ×2 (09:44→19:57)
[2019-10-08] MEDS: polyethylene glycoL 3350 17 GM POWD.PACK PO (09:44)
[2019-10-08] MEDS: buPROPion HCL XL (24 HR) 150 MG TABCR 300 MG PO (09:45)
[2019-10-08] MEDS: FAMOTIDINE 20 MG TABLET PO ×2 (09:45→19:58)
[2019-10-08 10:00] VITALS: PULSE 83; RESP 16; O2SAT 98
[2019-10-08 14:00] VITALS: BP 130/90; PULSE 83; RESP 16; TEMP 36.2; O2SAT 98
--- NOTE | 2019-10-08 17:24 | WPDNEURORHBP ---
Subjective Date/time seen: 10/08/19 17:24 Interval history: this pleasant 49-year-old woman with the underlying history of Parkinson's disease treated with the DBS is here in the rehab after having had surgery for the lumbar canal stenosis she is doing very well and has walked several 100 feet so her Lovenox has been discontinued she denies any headache nausea vomiting chest pain shortness of breath fever chills or sore throat Review of Systems Review of Systems: All systems reviewed & are unremarkable except as noted in HPI and below Functional Status Ambulation Ability Ability to Ambulate 10 Feet: Standby Assistance Ability to Ambulate 50 Feet With 2 Turns: Standby Assistance Ability to Ambulate 150 Feet: Standby Assistance Ambulation Assistive Devices: Walker, Wheeled Transfers Ability Ability to Transfer In/Out of Chair: Standby Assistance Exam Const: General: comfortable and no acute distress HENMT: General nose exam: Normal nares present Mouth: Yes moist mucous membranes Eyes: General: appearance normal, both eyes and all related structures Neck: Neck: supple and no JVD Resp: Effort & Inspection: normal respiratory effort Auscultation: clear to auscultation bilaterally Cardio: Rate: regular rate Rhythm: regular rhythm GI: GI Palp: Yes Soft to palpation Auscultation: normal bowel sounds Back/Spine/Pelvis: Other: drainage is less no sign of infection at the surgical site Skin: General skin exam: normal color and no rashes or lesions noted Neuro: Other: the Parkinson's disease is stable lower extremity weakness is improving overall picture has significantly improved from the time she came to Extrem: General: normal to inspection Psych: Mental Status: mental status grossly normal Objective Data Vital Signs Vital Signs: Vital Signs - 24 hr 10/07/19 21:12 10/08/19 06:09 10/08/19 14:00 Temperature 36.8 C 36.9 C 36.2 C L Pulse Rate 82 84 83 Respiratory Rate 16 16 16 Blood Pressure 110/63 99/46 L 130/90 Pulse Oximetry 99 98 98 Intake/Output Intake/Output: Intake & Output 10/05/19 10/06/19 10/07/19 10/08/19 23:59 23:59 23:59 23:59 Intake Total 840 720 720 360 Balance 840 720 720 360 Meds/Results Medications: Active Medications Generic Name Dose Route Start Last Admin Trade Name Freq PRN Reason Stop Dose Admin Acetaminophen 500 mg 10/01/19 15:36 10/06/19 18:51 Tylenol Tablet PO 500 mg Q6H PRN Administration Pain Baclofen 10 mg 10/01/19 21:00 Lioresal Po PO HS PRN Muscle Spasm Bisacodyl 10 mg 10/01/19 15:36 Dulcolax Suppository RECTAL DAILY PRN Constipation Bupropion HCl 300 mg 10/02/19 09:00 10/08/19 09:45 Wellbutrin Xl (24 Hr) PO 300 mg QAM DEEJAY Administration Cephalexin HCl 500 mg 10/04/19 21:00 10/08/19 09:44 Keflex Capsule PO 10/11/19 09:01 500 mg Q12HR DEEJAY Administration Clonazepam 1 mg 10/01/19 21:00 10/07/19 22:04 Klonopin Tablet PO 1 mg HS DEEJAY Administration Famotidine 20 mg 10/01/19 21:00 10/08/19 09:45 Pepcid PO 20 mg Q12HR DEEJAY Administration Non-Formulary Medication 1 applic 10/01/19 15:42 [place] Tar TOPICAL DAILY PRN scalp flaking Oxybutynin Chloride 5 mg 10/02/19 09:00 10/08/19 09:45 Ditropan Xl PO 5 mg DAILY DEEJAY Administration Paroxetine HCl 20 mg 10/01/19 21:00 10/07/19 22:01 Paxil PO 20 mg HS DEEJAY Administration Polyethylene Glycol 17 gm 10/02/19 09:00 10/08/19 09:44 Miralax PO 17 gm DAILY DEEJAY Administration Tizanidine HCl 4 mg 10/01/19 15:36 10/05/19 11:59 Zanaflex PO 4 mg TID PRN Administration Muscle Spasm Progress Note: A&P Assessment and Plan (1) Lumbar canal stenosis: Code(s): M48.061 - Spinal stenosis, lumbar region without neurogenic claudication Status: Acute (2) S/P lumbar laminectomy: Code(s): Z98.890 - Other specified postprocedural states Status: Acu
[2019-10-08] MEDS: CLONAZEPAM 0.5 MG TAB 1 MG PO (19:55)
[2019-10-08] MEDS: PAROXETINE 20 MG TABLET PO (19:58)
[2019-10-08 20:07] VITALS: BP 106/63; PULSE 88; RESP 16; TEMP 36.9; O2SAT 99
[2019-10-09 04:45] LABS: Basophils Absolute Auto 0.1 K/mm3 (0.0-0.1); Basophils Percent Auto 0.7 % (0.2-1.2); Eosinophils Absolute Auto 0.2 K/mm3 (0-0.3); Hematocrit 37.5 % (37.0-47.0); Hemoglobin 12.1 g/dL (12.0-15.0); Immature Granulocyte Absolute 0.03 K/mm3 (0.00-0.031); Immature Granulocyte Percent A 0.4 % (0-0.5); Lymphocytes Absolute Auto 2.37 K/mm3 (0.9-3.2); Lymphocytes Percent Auto 31.7 % (18.3-44.2); Mean Corpuscular HGB Conc 32.3 g/dl (32-36); Mean Corpuscular Hemoglobin 29.2 pg (26-34); Mean Corpuscular Volume 90.6 fl (80-100); Monocytes Absolute Auto 0.6 K/mm3 (0.1-0.6); Monocytes Percent Auto 8.2 % (2.6-8.5); Neutrophils Absolute Auto 4.3 K/mm3 (1.3-6.7); Platelet Count Result 412 k/mm3 (150-375); Red Blood Count 4.14 M/mm3 (4.2-5.4); Red Cell Distribution Width 12.7 % (11.5-14.5); White Blood Count 7.5 K/mm3 (4.5-10.0)
[2019-10-09 04:58] LABS: Blood Urea Nitrogen 25 mg/dL (7-17); Calcium 9.2 mg/dL (8.4-10.2); Carbon Dioxide 31 mmol/L (22-30); Chloride 104 mmol/L (98-107); Estimated CRCL calculation 84 ml/min; Estimated Glomerular Filt Rate > 60; Glucose 102 mg/dL (65-105); Potassium 4.5 mmol/L (3.4-5.0); Sodium 141 mmol/L (137-145)
[2019-10-09 05:45] VITALS: BP 108/62; PULSE 98; RESP 18; TEMP 36.7; O2SAT 100
[2019-10-09 09:20] VITALS: PULSE 98; RESP 18; O2SAT 100
[2019-10-09] MEDS: FAMOTIDINE 20 MG TABLET PO ×2 (09:24→20:46)
[2019-10-09] MEDS: polyethylene glycoL 3350 17 GM POWD.PACK PO (09:24)
[2019-10-09] MEDS: buPROPion HCL XL (24 HR) 150 MG TABCR 300 MG PO (09:24)
[2019-10-09] MEDS: CEPHALEXIN 500 MG CAPSULE PO ×2 (09:24→20:47)
[2019-10-09 14:00] VITALS: BP 109/64; PULSE 85; RESP 18; TEMP 36.9; O2SAT 98
--- NOTE | 2019-10-09 16:44 | WPDNEURORHBP ---
Subjective Date/time seen: 10/09/19 16:44 Interval history: this 49-year-old woman is here after having had surgery for the lumbar canal stenosis with significant improvement here lower extremity function the drainage from her incision is relatively less and there is no sign of clinical infection she is feeling good and impressive her Parkinson's disease is stable denies any headache nausea vomiting chest pain shortness of breath fever chills sore throat Review of Systems Review of Systems: All systems reviewed & are unremarkable except as noted in HPI and below Functional Status Ambulation Ability Ability to Ambulate 10 Feet: Standby Assistance Ability to Ambulate 50 Feet With 2 Turns: Standby Assistance Ability to Ambulate 150 Feet: Standby Assistance Ambulation Assistive Devices: Wheelchair, Manual Transfers Ability Ability to Transfer In/Out of Chair: Standby Assistance Exam Const: General: comfortable and no acute distress HENMT: General nose exam: Normal nares present Mouth: Yes moist mucous membranes Eyes: General: appearance normal, both eyes and all related structures Neck: Neck: supple and no JVD Resp: Effort & Inspection: normal respiratory effort Auscultation: clear to auscultation bilaterally Cardio: Rate: regular rate GI: GI Palp: Yes Soft to palpation Auscultation: normal bowel sounds Back/Spine/Pelvis: Other: the incision of the lower back is clean little drainage is noted however clinically there are no sign of infection tenderness or redness Skin: General skin exam: normal color and no rashes or lesions noted Neuro: Other: patient's Parkinson's Disease is stable she is walking much better several 100 feet and strength in the lower extremities more so than the upper extremities better however she does have a sensory deficit and depressed reflexes in the lower extremities related to significant lumbar canal stenosis and peripheral neuropathy Extrem: General: normal to inspection Psych: Mental Status: mental status grossly normal Objective Data Vital Signs Vital Signs: Vital Signs - 24 hr 10/08/19 20:07 10/09/19 05:45 10/09/19 09:20 Temperature 36.9 C 36.7 C Pulse Rate 88 98 98 Respiratory Rate 16 18 18 Blood Pressure 106/63 108/62 Pulse Oximetry 99 100 100 10/09/19 14:00 Temperature 36.9 C Pulse Rate 85 Respiratory Rate 18 Blood Pressure 109/64 Pulse Oximetry 98 Intake/Output Intake/Output: Intake & Output 10/06/19 10/07/19 10/08/1910/08/20 23:59 23:59 23:59 23:59 Intake Total 720 720 600 480 Balance 720 720 600 480 Meds/Results Medications: Active Medications Generic Name Dose Route Start Last Admin Trade Name Freq PRN Reason Stop Dose Admin Acetaminophen 500 mg 10/01/19 15:36 10/06/19 18:51 Tylenol Tablet PO 500 mg Q6H PRN Administration Pain Baclofen 10 mg 10/01/19 21:00 Lioresal Po PO HS PRN Muscle Spasm Bisacodyl 10 mg 10/01/19 15:36 Dulcolax Suppository RECTAL DAILY PRN Constipation Bupropion HCl 300 mg 10/02/19 09:00 10/09/19 09:24 Wellbutrin Xl (24 Hr) PO 300 mg QAM DEEJAY Administration Cephalexin HCl 500 mg 10/04/19 21:00 10/09/19 09:24 Keflex Capsule PO 10/11/19 09:01 500 mg Q12HR DEEJAY Administration Clonazepam 1 mg 10/01/19 21:00 10/08/19 19:55 Klonopin Tablet PO 1 mg HS DEEJAY Administration Famotidine 20 mg 10/01/19 21:00 10/09/19 09:24 Pepcid PO 20 mg Q12HR DEEJAY Administration Non-Formulary Medication 1 applic 10/01/19 15:42 [place] Tar TOPICAL DAILY PRN scalp flaking Oxybutynin Chloride 5 mg 10/02/19 09:00 10/09/19 09:25 Ditropan Xl PO 5 mg DAILY DEEJAY Administration Paroxetine HCl 20 mg 10/01/19 21:00 10/08/19 19:58 Paxil PO 20 mg HS DEEJAY Administration Polyethylene Glycol 17 gm 10/02/19 09:00 10/09/19 09:24 Miralax PO 17 gm DAILY DEEJAY Administration Tizanidine HCl 4 mg 10/01/19 15:36 10/05/19 1
[2019-10-09] MEDS: CLONAZEPAM 0.5 MG TAB 1 MG PO (20:47)
[2019-10-09] MEDS: PAROXETINE 20 MG TABLET PO (21:18)
[2019-10-09 22:00] VITALS: BP 113/71; PULSE 76; RESP 17; TEMP 36.2; O2SAT 98
[2019-10-10 06:00] VITALS: BP 119/75; PULSE 75; RESP 17; TEMP 36; O2SAT 98
[2019-10-10 08:00] VITALS: PULSE 75; RESP 17; O2SAT 98
[2019-10-10] MEDS: buPROPion HCL XL (24 HR) 150 MG TABCR 300 MG PO (09:11)
[2019-10-10] MEDS: CEPHALEXIN 500 MG CAPSULE PO ×2 (09:11→20:26)
[2019-10-10] MEDS: FAMOTIDINE 20 MG TABLET PO ×2 (09:12→20:26)
[2019-10-10] MEDS: polyethylene glycoL 3350 17 GM POWD.PACK PO (09:12)
--- NOTE | 2019-10-10 10:27 | WPDNEURORHBP ---
Subjective Date/time seen: S/p decompressive laminectomy for spinal stenosis and [id number]/18/20 10:27 Review of Systems Review of Systems: All systems reviewed & are unremarkable except as noted in HPI and below Functional Status Ambulation Ability Ability to Ambulate 10 Feet: Standby Assistance Ability to Ambulate 50 Feet With 2 Turns: Standby Assistance Ability to Ambulate 150 Feet: Standby Assistance Ambulation Assistive Devices: Cane Transfers Ability Ability to Transfer In/Out of Chair: Standby Assistance Exam Const: General: cooperative, comfortable and no acute distress HENMT: Head: normal to inspection General nose exam: No nasal discharge present Mouth: Yes Normal oral and palatal mucosa present Eyes: General: appearance normal, both eyes and all related structures Neck: Neck: full ROM Resp: Effort & Inspection: normal respiratory effort Auscultation: clear to auscultation bilaterally Cardio: Rate: regular rate Rhythm: regular rhythm GI: Auscultation: normal bowel sounds Neuro: General: patient oriented x3, moves all extremities and Normal light touch and pain sensation (distally decreased with depressed DTR) Cranial nerves: Yes CN's II-XII intact bilaterally Cognition (Neuro): normal cognition Speech: normal speech Motor exam (neuro): Abnormal motor strength present Sensory Exam: Sensory deficit (Neuro) Extrem: General: normal to inspection Psych: Appearance: grossly normal Objective Data Vital Signs Vital Signs: Vital Signs - 24 hr 10/09/19 14:00 10/09/19 22:00 10/10/19 06:00 Temperature 36.9 C 36.2 C L 36.0 C L Pulse Rate 85 76 75 Respiratory Rate 18 17 17 Blood Pressure 109/64 113/71 119/75 Pulse Oximetry 98 98 98 Intake/Output Intake/Output: Intake & Output 10/07/19 10/08/19 10/09/19 10/10/19 23:59 23:59 23:59 23:59 Intake Total 720 600 720 240 Balance 720 600 720 240 Meds/Results Medications: Active Medications Generic Name Dose Route Start Last Admin Trade Name Freq PRN Reason Stop Dose Admin Acetaminophen 500 mg 10/01/19 15:36 10/06/19 18:51 Tylenol Tablet PO 500 mg Q6H PRN Administration Pain Baclofen 10 mg 10/01/19 21:00 Lioresal Po PO HS PRN Muscle Spasm Bisacodyl 10 mg 10/01/19 15:36 Dulcolax Suppository RECTAL DAILY PRN Constipation Bupropion HCl 300 mg 10/02/19 09:00 10/10/19 09:11 Wellbutrin Xl (24 Hr) PO 300 mg QAM DEEJAY Administration Cephalexin HCl 500 mg 10/04/19 21:00 10/10/19 09:11 Keflex Capsule PO 10/11/19 09:01 500 mg Q12HR DEEJAY Administration Clonazepam 1 mg 10/01/19 21:00 10/09/19 20:47 Klonopin Tablet PO 1 mg HS DEEJAY Administration Famotidine 20 mg 10/01/19 21:00 10/10/19 09:12 Pepcid PO 20 mg Q12HR DEEJAY Administration Non-Formulary Medication 1 applic 10/01/19 15:42 [place] Tar TOPICAL DAILY PRN scalp flaking Oxybutynin Chloride 5 mg 10/02/19 09:00 10/10/19 09:12 Ditropan Xl PO 5 mg DAILY DEEJAY Administration Paroxetine HCl 20 mg 10/01/19 21:00 10/09/19 21:18 Paxil PO 20 mg HS DEEJAY Administration Polyethylene Glycol 17 gm 10/02/19 09:00 10/10/19 09:12 Miralax PO 17 gm DAILY DEEJAY Administration Tizanidine HCl 4 mg 10/01/19 15:36 10/05/19 11:59 Zanaflex PO 4 mg TID PRN Administration Muscle Spasm Progress Note: A&P Assessment and Plan (1) Lumbar canal stenosis: Code(s): M48.061 - Spinal stenosis, lumbar region without neurogenic claudication Status: Acute (2) S/P lumbar laminectomy: Code(s): Z98.890 - Other specified postprocedural states Status: Acute (3) Depression: Code(s): F32.9 - Major depressive disorder, single episode, unspecified Status: Acute (4) Anxiety: Code(s): F41.9 - Anxiety disorder, unspecified Status: Acute (5) Insomnia: Code(s): G47.00 - Insomnia, unspecified Status: Acute (6)
--- NOTE | 2019-10-10 10:59 | PCDIET ---
Nutrition Follow-Up Complete: Nutrition Diagnosis: Overweight related to history of excessive energy intake as evidenced by BMI of 29.4. Nutrition Goal: Patient to consume 75% of meals or greater. Goal met. Patient consuming 100% of meals on regular diet. Last recorded weight is 87.8 kg. Recommend obtaining new weight. Bowel Motility: Last BM on 10/09/19 x 1. Labs Reviewed from 10/10/19. Meds Noted: Keflex, Pepcid, Miralax Additional Notes: Bilateral knee scabs. Back incision. No pressure ulcers reported. Will continue to monitor with same goals. Nutrition Monitoring and Evaluation: Follow up in 7 days.
[2019-10-10 14:00] VITALS: BP 102/62; PULSE 84; RESP 20; TEMP 36.4; O2SAT 99
[2019-10-10] MEDS: CLONAZEPAM 0.5 MG TAB 1 MG PO (20:26)
[2019-10-10] MEDS: PAROXETINE 20 MG TABLET PO (20:26)
[2019-10-10 22:00] VITALS: BP 102/57; PULSE 74; RESP 18; TEMP 36.9; O2SAT 95
[2019-10-10] MEDS: TIZANIDINE HCL 4 MG TABLET PO (23:32)
[2019-10-11 06:00] VITALS: BP 98/53; PULSE 74; RESP 20; TEMP 36.8; O2SAT 97
[2019-10-11] MEDS: buPROPion HCL XL (24 HR) 150 MG TABCR 300 MG PO (10:53)
[2019-10-11] MEDS: CEPHALEXIN 500 MG CAPSULE PO ×4 (10:53→21:29)
[2019-10-11] MEDS: polyethylene glycoL 3350 17 GM POWD.PACK PO (10:54)
[2019-10-11] MEDS: FAMOTIDINE 20 MG TABLET PO ×2 (10:54→21:31)
--- NOTE | 2019-10-11 12:43 | WPDNEURORHBP ---
Subjective Date/time seen: 10/11/19 12:43 Interval history: this 49-year-old with underlying Parkinson's disease treated with the DBS is here post lumbar laminectomy for lumbar canal stenosis she is doing remarkably well the only issue which remains and bothering her is the drainage from the surgical site which is definitely less and has always been serosanguineous but it is a matter of concern for her and also her mother was on the telephone for the team conference she otherwise remains free any of any pain headache nausea vomiting fevers chills or sore throat Review of Systems Review of Systems: All systems reviewed & are unremarkable except as noted in HPI and below Functional Status Ambulation Ability Ability to Ambulate 10 Feet: Independent Ability to Ambulate 50 Feet With 2 Turns: Independent Ability to Ambulate 150 Feet: Independent Ambulation Assistive Devices: Walker, Wheeled Transfers Ability Ability to Transfer In/Out of Chair: Independent Exam Const: General: comfortable and no acute distress HENMT: General nose exam: Normal nares present Mouth: Yes moist mucous membranes Eyes: General: appearance normal, both eyes and all related structures Neck: Neck: supple and no JVD Resp: Effort & Inspection: normal respiratory effort Auscultation: clear to auscultation bilaterally Cardio: Rate: regular rate Rhythm: regular rhythm GI: GI Palp: Yes Soft to palpation Auscultation: normal bowel sounds Back/Spine/Pelvis: Other: the incision looks clean there is no tenderness there is no swelling does no redness there is serosanguineous discharge from the top of it however on squeezing I do not see any further drainage Skin: General skin exam: normal color and no rashes or lesions noted Neuro: Other: the patient is oriented in time place and person is speech and language function are normal cranial exam shows normal strength has improved and she is doing remarkably well as for as the weakness and the ability to walk is concerned still uses the walker however Extrem: General: normal to inspection Psych: Mental Status: mental status grossly normal Objective Data Vital Signs Vital Signs: Vital Signs - 24 hr 10/10/19 14:00 10/10/19 22:00 10/11/19 06:00 Temperature 36.4 C 36.9 C 36.8 C Pulse Rate 84 74 74 Respiratory Rate 20 18 20 Blood Pressure 102/62 102/57 L 98/53 L Pulse Oximetry 99 95 97 Intake/Output Intake/Output: Intake & Output 10/08/19 10/09/19 10/10/19 10/11/19 23:59 23:59 23:59 23:59 Intake Total 600 720 720 240 Balance 600 720 720 240 Meds/Results Medications: Active Medications Generic Name Dose Route Start Last Admin Trade Name Freq PRN Reason Stop Dose Admin Acetaminophen 500 mg 10/01/19 15:36 10/06/19 18:51 Tylenol Tablet PO 500 mg Q6H PRN Administration Pain Baclofen 10 mg 10/01/19 21:00 Lioresal Po PO HS PRN Muscle Spasm Bisacodyl 10 mg 10/01/19 15:36 Dulcolax Suppository RECTAL DAILY PRN Constipation Bupropion HCl 300 mg 10/02/19 09:00 10/11/19 10:53 Wellbutrin Xl (24 Hr) PO 300 mg QAM DEEJAY Administration Cephalexin HCl 500 mg 10/11/19 13:00 Keflex Capsule PO 10/18/19 09:01 QID DEEJAY Clonazepam 1 mg 10/01/19 21:00 10/10/19 20:26 Klonopin Tablet PO 1 mg HS DEEJAY Administration Famotidine 20 mg 10/01/19 21:00 10/11/19 10:54 Pepcid PO 20 mg Q12HR DEEJAY Administration Non-Formulary Medication 1 applic 10/01/19 15:42 [place] Tar TOPICAL DAILY PRN scalp flaking Oxybutynin Chloride 5 mg 10/02/19 09:00 10/11/19 10:54 Ditropan Xl PO 5 mg DAILY DEEJAY Administration Paroxetine HCl 20 mg 10/01/19 21:00 10/10/19 20:26 Paxil PO 20 mg HS DEEJAY Administration Polyethylene Glycol 17 gm 10/02/19 09:00 10/11/19 10:54 Miralax PO 17 gm DAILY DEEJAY Administration Tizanidine HCl 4 mg 10/01/19 15:36 10/10/19 23:32 Zanaflex PO 4 mg TID PRN Ad
[2019-10-11 14:00] VITALS: BP 96/59; PULSE 79; RESP 20; TEMP 36.8; O2SAT 98
--- NOTE | 2019-10-11 16:52 | PC.NURSE ---
spoke with Irasema RUBIN regarding s/s drainage of incision, antibiotic, discharge, and f/u appointment. OK to discharge, continue with antibiotic Dr. Mccann ordered of Keflex QID for another 7 days. The surgeon will f/u with her at the scheduled appointment on November 16, and the home health nurse can follow and call with any concerns regarding incision.
[2019-10-11] MEDS: CLONAZEPAM 0.5 MG TAB 1 MG PO (21:28)
[2019-10-11] MEDS: PAROXETINE 20 MG TABLET PO (21:31)
[2019-10-11] MEDS: TIZANIDINE HCL 4 MG TABLET PO (21:31)
[2019-10-11 22:00] VITALS: BP 112/69; PULSE 64; RESP 18; TEMP 36.8; O2SAT 96
[2019-10-12 04:51] LABS: Basophils Absolute Auto 0.1 K/mm3 (0.0-0.1); Basophils Percent Auto 0.8 % (0.2-1.2); Eosinophils Absolute Auto 0.2 K/mm3 (0-0.3); Eosinophils Percent Auto 2.3 % (0-4.4); Hematocrit 35.7 % (37.0-47.0); Hemoglobin 11.7 g/dL (12.0-15.0); Immature Granulocyte Absolute 0.01 K/mm3 (0.00-0.031); Immature Granulocyte Percent A 0.2 % (0-0.5); Lymphocytes Absolute Auto 2.22 K/mm3 (0.9-3.2); Mean Corpuscular HGB Conc 32.8 g/dl (32-36); Mean Corpuscular Hemoglobin 28.8 pg (26-34); Mean Corpuscular Volume 87.9 fl (80-100); Mean Platelet Volume 8.8 fl (7.4-10.4); Monocytes Absolute Auto 0.6 K/mm3 (0.1-0.6); Monocytes Percent Auto 8.9 % (2.6-8.5); Neutrophils Absolute Auto 3.5 K/mm3 (1.3-6.7); Neutrophils Percent Auto 53.8 % (45.5-73.1); Platelet Count Result 406 k/mm3 (150-375); Red Blood Count 4.06 M/mm3 (4.2-5.4); Red Cell Distribution Width 12.5 % (11.5-14.5); White Blood Count 6.5 K/mm3 (4.5-10.0)
[2019-10-12 05:11] LABS: Blood Urea Nitrogen 21 mg/dL (7-17); Calcium 9.3 mg/dL (8.4-10.2); Carbon Dioxide 29 mmol/L (22-30); Chloride 105 mmol/L (98-107); Estimated CRCL calculation 84 ml/min; Estimated Glomerular Filt Rate > 60; Glucose 99 mg/dL (65-105); Potassium 3.9 mmol/L (3.4-5.0); Sodium 139 mmol/L (137-145)
[2019-10-12 06:00] VITALS: BP 95/55; PULSE 67; RESP 16; TEMP 37.1; O2SAT 98
[2019-10-12 08:00] VITALS: PULSE 68; RESP 16
[2019-10-12] MEDS: TIZANIDINE HCL 4 MG TABLET PO (10:52)
[2019-10-12] MEDS: FAMOTIDINE 20 MG TABLET PO (10:52)
[2019-10-12] MEDS: buPROPion HCL XL (24 HR) 150 MG TABCR 300 MG PO (10:52)
[2019-10-12] MEDS: CEPHALEXIN 500 MG CAPSULE PO ×2 (10:53→12:58)
[2019-10-12] MEDS: polyethylene glycoL 3350 17 GM POWD.PACK PO (10:55)
--- NOTE | 2019-10-12 12:28 | WPDNEURORHBP ---
Subjective Date/time seen: 10/12/19 12:28 Interval history: Shilpi has done remarkably well in over acute rehab after having had surgery for lumbar canal stenosis the incision is still show some drainage however is definitely much less than before and no sign of infection our nurse was in touch with the surgeon's office and they are okay for to be discharged today and home health will follow the patient and will keep them a breast about the wound she denies any headache nausea vomiting chest pain shortness of breath fever chills sore throat Review of Systems Review of Systems: All systems reviewed & are unremarkable except as noted in HPI and below Functional Status Ambulation Ability Ability to Ambulate 10 Feet: Independent Ability to Ambulate 50 Feet With 2 Turns: Independent Ability to Ambulate 150 Feet: Independent Ambulation Assistive Devices: Walker, Wheeled Transfers Ability Ability to Transfer In/Out of Chair: Independent Exam Const: General: comfortable and no acute distress HENMT: General nose exam: Normal nares present Mouth: Yes moist mucous membranes Eyes: General: appearance normal, both eyes and all related structures Neck: Neck: supple and no JVD Resp: Effort & Inspection: normal respiratory effort Auscultation: clear to auscultation bilaterally Cardio: Rate: regular rate Rhythm: regular rhythm GI: GI Palp: Yes Soft to palpation Auscultation: normal bowel sounds Back/Spine/Pelvis: Other: the incision is clean and drainage is less Skin: General skin exam: normal color and no rashes or lesions noted Neuro: Other: the parkinsonian status is stable she is able to walk fairly decently normal of course with the walker and doing remarkably well Extrem: General: normal to inspection Psych: Mental Status: mental status grossly normal Objective Data Vital Signs Vital Signs: Vital Signs - 24 hr 10/11/19 14:00 10/11/19 22:00 10/12/19 06:00 Temperature 36.8 C 36.8 C 37.1 C Pulse Rate 79 64 67 Respiratory Rate 20 18 16 Blood Pressure 96/59 L 112/69 95/55 L Pulse Oximetry 98 96 98 Intake/Output Intake/Output: Intake & Output 10/09/19 10/10/19 10/11/19 10/12/19 23:59 23:59 23:59 23:59 Intake Total 720 720 720 240 Balance 720 720 720 240 Meds/Results Medications: Active Medications Generic Name Dose Route Start Last Admin Trade Name Freq PRN Reason Stop Dose Admin Acetaminophen 500 mg 10/01/19 15:36 10/06/19 18:51 Tylenol Tablet PO 500 mg Q6H PRN Administration Pain Baclofen 10 mg 10/01/19 21:00 Lioresal Po PO HS PRN Muscle Spasm Bisacodyl 10 mg 10/01/19 15:36 Dulcolax Suppository RECTAL DAILY PRN Constipation Bupropion HCl 300 mg 10/02/19 09:00 10/12/19 10:52 Wellbutrin Xl (24 Hr) PO 300 mg QAM DEEJAY Administration Cephalexin HCl 500 mg 10/11/19 13:00 10/12/19 10:53 Keflex Capsule PO 10/18/19 09:01 500 mg QID DEEJAY Administration Clonazepam 1 mg 10/01/19 21:00 10/11/19 21:28 Klonopin Tablet PO 1 mg HS DEEJAY Administration Famotidine 20 mg 10/01/19 21:00 10/12/19 10:52 Pepcid PO 20 mg Q12HR DEEJAY Administration Non-Formulary Medication 1 applic 10/01/19 15:42 [place] Tar TOPICAL DAILY PRN scalp flaking Oxybutynin Chloride 5 mg 10/02/19 09:00 10/12/19 10:52 Ditropan Xl PO 5 mg DAILY DEEJAY Administration Paroxetine HCl 20 mg 10/01/19 21:00 10/11/19 21:31 Paxil PO 20 mg HS DEEJAY Administration Polyethylene Glycol 17 gm 10/02/19 09:00 10/12/19 10:55 Miralax PO 17 gm DAILY DEEJAY Administration Tizanidine HCl 4 mg 10/01/19 15:36 10/12/19 10:52 Zanaflex PO 4 mg TID PRN Administration Muscle Spasm Labs Labs: Laboratory Results - last 24 hr 10/12/19 10/12/19 04:32 04:32 WBC 6.5 RBC 4.06 L Hgb 11.7 L Hct 35.7 L MCV 87.9 MCH 28.8 MCHC 32.8 RDW 12.5 Plt Count 406 H MPV 8.8 Immature Gran % (Auto
--- NOTE | 2019-10-15 13:12 | DS_ITS ---
DATE OF DISCHARGE: 10/12/2019 DISCHARGE ACUTE REHABILITATION DIAGNOSIS: A 49-year-old lady admitted to rehab floor with the admission diagnosis of neurological condition with lumbar stenosis and neurogenic claudication and discharged with the same diagnoses. DISCHARGE ACTIVE COMORBID CONDITIONS: 1. Parkinson's disease. 2. Lumbar spondylolisthesis. 3. Anxiety with depression. REASON FOR ADMISSION: A 49-year-old right-handed female presented to [facility] with complaints of recurrent falls on 09/06, along with the weakness of the lower extremities. In addition to the comorbid condition of Parkinson's disease with DBS since 1998, done by Dr. Hernandez, in addition to the history of L4-L5 ALIF/PCT by Dr. Gomez, done in April 2016. Reportedly, she fell 6 weeks ago, recovered from the fall without any medical evaluation, but on the day of admission at [facility], she fell while at work and her right lower extremity gave out. After the third fall, she reported. She could not walk without assistance or a walker. She felt pain in her buttocks, groin, outer and anterior thighs, stopping at the mid thigh, but no pain down the posterior thigh or outer lower extremity. She did not become unconscious. Initial CT scan of the spine was negative for the fracture, though the myelogram with CT demonstrated myelographic block at L2-L3 and the findings were compatible with multiple level lumbar spine degenerative changes with more advanced L2-L3. Neurosurgical Service was consulted, initially though her complaints were attributed to meralgia paresthetica. She continued to have the parkinsonian symptoms, anorexia, fatigue, bladder urgency, dysphonia, postural instability and along with anxiety. She was initially discharged to rehab where she completed the course, went home, but she fell on 09/19/2019, presented to [facility] where she was evaluated in the ER, sent home. Then again, she presented to [facility] on 09/28/2019 for elective surgical intervention. She underwent lumbar posterior laminectomy, bilateral medial facetectomy at L2-L3 on 09/28/2019. Postoperatively, she developed anemia, pain, required the medication, physical therapy and discharged to rehab on Lovenox for DVT. She had no history of exposure to COVID-19, had not traveled anywhere and had not come in contact with any one with infection of Stark virus. Her acute physical therapy was initiated at [facility] and then she was transferred here for further care. LEVEL OF FUNCTION AT THE TIME OF ADMISSION: The patient required setup for eating, supervision for oral hygiene, partial assistance for toileting, substantial assistance for bathing, partial for upper body, substantial for lower body, partial for footwear, rolling in bed, sit to lying, lying to sit, substantial assistance for sit to stand, partial for chair transfer, toilet transfer, car transfer, walking 10 feet. She was unable to walk 50 feet with 2 turns, unable to walk 150 feet, unable to walk 10 feet on uneven surfaces as well. 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 ANTICIPATED REHAB GOALS: Anticipated rehab goals at the time of admission were to make her independent in eating, oral hygiene, toileting, bathing, upper body dressing, lower body dressing, footwear, rolling in bed, sit to lying, lying to sit, sit to stand, chair transfer, toilet transfer, car transfer, required supervision for walking 10 feet, 50 feet with 2 turns, 150 feet, 10 feet on uneven surfaces, curb or step, 4 steps, wheelchair for 50 feet and 150 feet, but required partial assistance for 12 steps, and picking up objects. LEVEL OF FUNCTION AT THE TIME OF DISCHARGE: The patient became independent in
== END 2019-10-12 13:45 | disposition home health service (06) | DRG 561 ==
PROVIDERS: Admitting Provider Psychiatry & Neurology Neurology; PCP Family Medicine; Visit Provider Psychiatry & Neurology Neurology
DX: Z47.89 Encounter for other orthopedic aftercare (principal); M48.062 Spinal stenosis, lumbar region with neurogenic claudication; M43.16 Spondylolisthesis, lumbar region; M50.30 Other cervical disc degeneration, unspecified cervical region; M54.17 Radiculopathy, lumbosacral region; M51.34 Other intervertebral disc degeneration, thoracic region; T81.30XD Disruption of wound, unspecified, subsequent encounter; D64.9 Anemia, unspecified; F41.8 Other specified anxiety disorders; G20 Parkinson's disease; G62.9 Polyneuropathy, unspecified; G47.00 Insomnia, unspecified; I95.9 Hypotension, unspecified; K59.00 Constipation, unspecified; R35.0 Frequency of micturition; R26.9 Unspecified abnormalities of gait and mobility; R29.6 Repeated falls; Z96.82 Presence of neurostimulator; Z98.1 Arthrodesis status; Z87.891 Personal history of nicotine dependence
CPT/HCPCS: 36415; 80048; 81001; 85025; 97110; 97116; 97162; 97530; 97535; A9270; J1650

== ENCOUNTER 2021-04-09 15:16 | Outpatient (CLI) | payer MEDICARE, SELFPAY ==
--- NOTE | ~2021-04-09 | MM_ITS ---
EXAMINATION: MM screening [facility] BI w christy HISTORY: Screening mammogram TECHNIQUE: Craniocaudal and mediolateral oblique 3-D tomosynthesis images were obtained and synthetic 2-D images were generated. CAD analysis was submitted and interpreted. COMPARISON: 03/13/2017, 08/05/2012 BREAST PARENCHYMAL COMPOSITION: There are scattered areas of fibroglandular density. FINDINGS: There is no evidence of suspicious mass, calcification, or architectural distortion to sugg est malignancy in either breast. There has been no suspicious interval change. IMPRESSION: 1. No mammographic evidence of malignancy. 2. Recommend routine screening mammography in one year. BI-RADS Category 1: Negative Reviewed, dictated and finalized at location A. [employer]ATE
== END 2021-04-09 15:17 | disposition home or self-care (01) ==
LOC: ANHIMG 15:18
PROVIDERS: PCP Family Medicine; Visit Provider Physician Assistant
DX: Z12.31 Encounter for screening mammogram for malignant neoplasm of breast (principal)
CPT/HCPCS: 77063; 77067

== ENCOUNTER → 2021-07-10 00:51 | Outpatient (CLI) | payer OTHER, SELFPAY ==
[2021-07-10 16:45] LABS: SARS-CoV-2 RNA PCR Positive
== END ==
PROVIDERS: PCP Family Medicine; Visit Provider Physician Assistant
DX: U07.1 COVID-19 (principal)
CPT/HCPCS: C9803; U0003; U0005

== ENCOUNTER 2021-10-01 14:23 | Outpatient (CLI) | payer OTHER, SELFPAY ==
--- NOTE | ~2021-10-01 | XR_ITS ---
XR foot LT min 3V DATE: 10/01/2021 15:03 INDICATION: Tripped and the second through fourth toes 2 weeks ago TECHNIQUE: 4 views COMPARISON: None FINDINGS: There is mild osteoarthritic arthritis at the first metatarsophalangeal joint. Slight plantar calcaneal enthesopathy. No fracture or dislocation, periosteal reaction or bone destruction. IMPRESSION: No fracture or dislocation Reviewed, dictated and finalized at location B. IMPRESSION: No fracture or dislocation
== END 2021-10-01 14:24 | disposition home or self-care (01) ==
LOC: ANHIMG 14:26
PROVIDERS: PCP Family Medicine; Visit Provider Physician Assistant
DX: S99.929A Unspecified injury of unspecified foot, initial encounter (principal); X58.XXXA Exposure to other specified factors, initial encounter
CPT/HCPCS: 73630

== ENCOUNTER 2022-02-07 10:17 | Outpatient (CLI) | payer OTHER, SELFPAY ==
--- NOTE | ~2022-02-07 | XR_ITS ---
EXAMINATION: XR chest 2V DATE: 02/07/2022 11:06 INDICATION: Chest pain after fall TECHNIQUE: Frontal and lateral views of the chest are obtained COMPARISON: None available FINDINGS: The lungs are free of acute opacities. No pleural effusion or pneumothorax. The cardiomedia stinal silhouette is normal. There is moderate thoracic spondylosis. IMPRESSION: 1. No acute cardiopulmonary abnormality. Reviewed, dictated and finalized at location B.
--- NOTE | ~2022-02-07 | XR_ITS ---
EXAMINATION: XR abdomen w oblique INDICATION: Right-sided bruising after fall TECHNIQUE: AP and bilateral oblique views of the abdomen are obtained on six radiographs. COMPARISON: None available FINDINGS: There are acute, oblique, minimally displaced fractures in the medial aspects of the right 11th and 12th ribs. A large volume of colonic stool is present. There are changes of anterior and pos terior fusion at L4-5. There is moderate lumbar spondylosis. Mild osteoarthritis is noted in the hips . Rudimentary ribs are noted at L1. IMPRESSION: 1. Acute, minimally displaced fractures of the medial right 11th and 12th ribs. Reviewed, dictated and finalized at location B.
== END 2022-02-07 10:18 | disposition home or self-care (01) ==
PROVIDERS: PCP Family Medicine; Visit Provider Physician Assistant
DX: S22.41XA Multiple fractures of ribs, right side, initial encounter for closed fracture (principal); X58.XXXA Exposure to other specified factors, initial encounter
CPT/HCPCS: 71046; 74021

== ENCOUNTER 2023-01-02 17:32 | Observation (INO) | payer MEDICARE, SELFPAY ==
--- NOTE | ~2023-01-02 | CT_ITS ---
EXAMINATION: CT brain wo con INDICATION: Falls and confusion, history of Parkinson's COMPARISON: None TECHNIQUE: Standard unenhanced head CT. The dose-length product (DLP) was 605.33 mGy-cm. The mA was a djusted according to patient size. Iterative reconstruction technique was employed. FINDINGS: There is no intracranial hemorrhage, acute infarction, or abnormal mass lesion. The ventric les are normal. There is no abnormal mass effect or midline shift. The sampson-white matter differentiat ion is normal. The basal cisterns are patent. Bilateral deep brain stimulators are in place. The orbi ts are normal. The paranasal sinuses, mastoids and calvarium are normal. IMPRESSION: 1. No acute intracranial abnormality. Reviewed, dictated and finalized at location A.
[2023-01-02 17:43] VITALS: BP 116/80; PULSE 84; RESP 17; TEMP 36.7; O2SAT 97
[2023-01-02 17:58] LABS: Basophils Percent Auto 0.6 % (0.2-1.2); Eosinophils Absolute Auto 0.1 K/mm3 (0-0.3); Eosinophils Percent Auto 1.1 % (0-4.4); Hematocrit 36.9 % (37.0-47.0); Hemoglobin 11.9 g/dL (12.0-15.0); Immature Granulocyte Absolute 0.02 K/mm3 (0.00-0.031); Immature Granulocyte Percent A 0.4 % (0-0.5); Lymphocytes Absolute Auto 1.82 K/mm3 (0.9-3.2); Lymphocytes Percent Auto 33.4 % (18.3-44.2); Mean Corpuscular HGB Conc 32.2 g/dl (32-36); Mean Corpuscular Hemoglobin 29.4 pg (26-34); Mean Corpuscular Volume 91.1 fl (80-100); Mean Platelet Volume 9.7 fl (7.4-10.4); Monocytes Absolute Auto 0.4 K/mm3 (0.1-0.6); Monocytes Percent Auto 7.9 % (2.6-8.5); Neutrophils Absolute Auto 3.1 K/mm3 (1.3-6.7); Neutrophils Percent Auto 56.6 % (45.5-73.1); Platelet Count Result 229 k/mm3 (150-375); Red Blood Count 4.05 M/mm3 (4.2-5.4); Red Cell Distribution Width 12.9 % (11.5-14.5); White Blood Count 5.5 K/mm3 (4.5-10.0)
[2023-01-02 18:12] LABS: Alanine Aminotransferase 11 U/L (6-35); Albumin Level 4.4 g/dL (3.5-5.1); Alkaline Phosphatase 103 U/L (38-126); Anion Gap 7 mmol/L (8-16); Aspartate Amino Transferase 23 U/L (14-36); Bilirubin,Total 0.6 mg/dL (0.2-1.3); Blood Urea Nitrogen 27 mg/dL (7-17); Calcium 9.2 mg/dL (8.4-10.2); Carbon Dioxide 26 mmol/L (22-30); Chloride 105 mmol/L (98-107); Estimated CRCL calculation 57 ml/min; Estimated Glomerular Filt Rate 58; Glucose 115 mg/dL (65-110); Potassium 4.1 mmol/L (3.4-5.0); Sodium 138 mmol/L (137-145)
[2023-01-02 20:34] VITALS: BP 123/82; PULSE 77; RESP 14; O2SAT 99
[2023-01-02 22:30] VITALS: BP 134/79; PULSE 62; RESP 14; O2SAT 98
[2023-01-02 22:35] LABS: Appearance Urine Cloudy (Clear); Bacteria Urine None Seen /hpf; Bilirubin Urine Negative (Negative); Blood Urine Negative (Negative); Color Urine Yellow (Yellow); Glucose Urine UA Negative (Negative); Ketones Urine Trace mg/dL (Negative); Leukocyte Esterase Ur 1+ LEU/UL (Negative); Nitrate Urine Negative (Negative); Non Pathogenic Casts 0-2; Protein Urine Negative (Negative); RBC Urine 0-2 /hpf (0-2); Specific Grav Ur 1.029 (1.001-1.035); Squamous Epithelial Cell Urine Occasional /hpf (Few); pH Urine 5.5 (5.0-9.0)
[2023-01-02 22:44] LABS: Lipase 59 U/L (23-300)
[2023-01-02 23:05] LABS: Add Urine Microscopic? YES
--- NOTE | 2023-01-03 00:39 | ED.WEAKNESS ---
HPI - Weakness General Chief complaint: Weakness <Tiffany Leon PA-C - Last Filed: 01/03/23 00:47> Stated complaint: falls, decrease appetite <KADEN Nguyen Last Filed: 01/03/23 00:47> Time Seen by Provider: 01/02/23 21:29 <Tiffany Leon PA-C - Last Filed: 01/03/23 00:47> Source: patient and family <KADEN Nguyen Last Filed: 01/03/23 00:47> Mode of arrival: ambulatory <KADEN Nguyen Last Filed: 01/03/23 00:47> Limitations: no limitations <KADEN Nguyen Last Filed: 01/03/23 00:47> History of Present Illness HPI Narrative: This is a 52 year old female that presents to the ER for generalized weakness. Reports history of Parkinson's. Lives home alone. Has had a lot of falls and is not eating much. Her family were concerned and brought her in for placement. Denies any focal injuries due to falls. Patient has no complaints currently. <KADEN Nguyen Last Filed: 01/03/23 00:47> Related Data Home medications: Home Medications Medication Instructions Recorded Confirmed acetaminophen 500 mg capsule 500 mg PO Q6H PRN Pain 10/01/19 01/03/23 clonazepam 1 mg tablet 1.5 mg PO QHS 11/23/20 01/03/23 gabapentin 600 mg tablet 600 mg PO QHS 11/23/20 01/03/23 zolpidem 5 mg tablet 5 mg PO QHS PRN Sleep 11/23/20 01/03/23 oxybutynin chloride 10 mg 10 mg PO DAILY 06/20/21 01/03/23 tablet,extended release 24 hr tizanidine 4 mg tablet (Zanaflex) 4 mg PO HS PRN Muscle Spasm 01/03/23 01/03/23 <KADEN Nguyen Last Filed: 01/03/23 00:47> Allergies/Adverse reactions: Allergies Allergy/AdvReac Type Severity Reaction Status Date / Time oxycodone Allergy Unknown Unknown Verified 01/02/23 09:11 hydrocodone AdvReac Severe Nausea and Verified 01/02/23 09:11 Vomiting prochlorperazine AdvReac Severe Itching Verified 01/02/23 09:11 <Tiffany Leon PA-C - Last Filed: 01/03/23 00:47> Review of Systems Review of Systems: CONSTITUTIONAL: Denies fever CARDIOVASCULAR: Denies chest pain RESPIRATORY: Denies dyspnea. GASTROINTESTINAL: Denies abdominal pain, nausea, vomiting NEUROLOGIC: Reports generalized weakness. <Tiffany Leon PA-C - Last Filed: 01/03/23 00:47> All systems reviewed & are unremarkable except as noted in HPI and below <Tiffany Leon PA-C - Last Filed: 01/03/23 00:47> [facility] Past Medical History Medical History: Medical History Anxiety Depression Gait disorder Insomnia Lumbar canal stenosis Lumbar canal stenosis Parkinsons disease <Tiffany Leon PA-C - Last Filed: 01/03/23 00:47> Surgical History Surgical History: Surgical History S/P lumbar laminectomy <Tiffany Leon PA-C - Last Filed: 01/03/23 00:47> Family History Family History: Family History Mother Hypertension Family history of rheumatoid arthritis Father Family history of lung cancer Sibling Family history of lung cancer <Tiffany Leon PA-C - Last Filed: 01/03/23 00:47> Social History Social History: Social History (Updated 01/03/23 @ 00:42 by Tiffany Leon PA-C) Smoking packs per day: 1 Smoking cigarettes per day: 20.0 Smoking status: Former smoker Tobacco type: cigarettes Second hand tobacco smoke exposure: No Smoking end date: 05/25/13 Alcohol intake: never Substance use: never Substance use type: does not use Lack of Transportation: No Lack of Food: Never True Current Housing: I Have Housing Concerned About Future Housing: No Difficulty Paying Gas/Electric Bills: No Difficulty Paying for Meds: No Currently Unemployed: No Education: Bachelor's Degree Difficulty w/ Childcare or Family Care: No Gender identity (if verbalized by the patient): Female Spiritual care concerns: No
[2023-01-03 00:41] VITALS: BP 130/74; PULSE 100; RESP 13; O2SAT 98
[2023-01-03 01:45] VITALS: BP 121/74; PULSE 90; RESP 19; O2SAT 96
--- NOTE | 2023-01-03 01:57 | ADMGEN ---
This patient, Shilpi Benites, was admitted to [facility] Surg Room 314-01. Patient/family oriented to hospital policies and general routines including ID bracelet, bed and alarms, visiting hours, pain management, procedures, bathroom and other care routines, personal items, smoking policy, room service/diet, and visiting hours. Information on how to activate the Rapid Response Team has been discussed. Patient/Family are encouraged to report perceived risks to care and to ask questions if they do not understand what they are told or what they should do.
[2023-01-03 02:07] VITALS: BP 105/80; PULSE 89; RESP 20; TEMP 36.4; O2SAT 98
[2023-01-03 06:00] VITALS: BP 110/66; PULSE 76; RESP 20; TEMP 36.1; O2SAT 97
[2023-01-03 14:35] VITALS: BP 96/70; PULSE 85; RESP 16; TEMP 37.2; O2SAT 98
--- NOTE | 2023-01-03 17:21 | PM.IMHP ---
H&P: HPI History of Present Illness Date/Time: 01/03/23 17:21 Chief Complaint: Generalized weakness Narrative: 52-year-old female presents to the ER for generalized weakness. History of Parkinson's disease and she lives alone. Has been having recurrent falls and not eating well. Anion a specific injury. Do sound to have UTI and was started on antibiotics in the ER. She is getting admitted for further treatment and rehabilitation needs assessment. Cbc and CMP were unremarkable. Review of Systems Review of Systems: - CONSTITUTIONAL: Denies weight loss, fever and chills. - HEENT: Denies changes in vision and hearing - RESPIRATORY: Denies SOB and cough. - CV: Denies palpitations and CP. - GI: Denies abdominal pain, nausea, vomiting and diarrhea. - : Denies dysuria and urinary frequency. - MSK: Denies myalgia and joint pain. - SKIN: Denies rash and pruritus. - NEUROLOGICAL: Denies headache and syncope. - PSYCHIATRIC: Denies recent changes in mood. Denies anxiety and depression. [facility] Past Medical History Medical History Anxiety Depression Gait disorder Insomnia Lumbar canal stenosis Lumbar canal stenosis Parkinsons disease Surgical History Surgical History S/P lumbar laminectomy Family History Family History Mother Hypertension Family history of rheumatoid arthritis Father Family history of lung cancer Sibling Family history of lung cancer Social History Social History (Updated 01/03/23 @ 00:42 by Tiffany Leon PA-C) Smoking packs per day: 1 Smoking cigarettes per day: 20.0 Smoking status: Former smoker Tobacco type: cigarettes Second hand tobacco smoke exposure: No Smoking end date: 05/25/13 Alcohol intake: never Substance use: never Substance use type: does not use Lack of Transportation: No Lack of Food: Never True Current Housing: I Have Housing Concerned About Future Housing: No Difficulty Paying Gas/Electric Bills: No Difficulty Paying for Meds: No Currently Unemployed: No Education: Bachelor's Degree Difficulty w/ Childcare or Family Care: No Gender identity (if verbalized by the patient): Female Spiritual care concerns: No Agree to blood products: Yes Meds Home Medications and Allergies Home Medications Medication Instructions Recorded Confirmed Type bupropion HCl 300 mg 24 hr tablet, 300 mg PO QAM #30 tabs 09/17/19 01/03/23 Rx extended release famotidine 20 mg tablet 20 mg PO BID #60 tabs 09/17/19 01/03/23 Rx sennosides 8.6 mg-docusate sodium 1 tab PO Q12HR PRN Constipation 09/17/19 01/03/23 Rx 50 mg tablet (Senokot-S) #30 tabs acetaminophen 500 mg capsule 500 mg PO Q6H PRN Pain 10/01/19 01/03/23 History clonazepam 1 mg tablet 1.5 mg PO QHS 11/23/20 01/03/23 History gabapentin 600 mg tablet 600 mg PO QHS 11/23/20 01/03/23 History zolpidem 5 mg tablet 5 mg PO QHS PRN Sleep 11/23/20 01/03/23 History oxybutynin chloride 10 mg 10 mg PO DAILY 06/20/21 01/03/23 History tablet,extended release 24 hr diclofenac sodium 75 mg 75 mg PO BID #60 tabs 09/29/22 01/03/23 Rx tablet,delayed release tizanidine 4 mg tablet (Zanaflex) 4 mg PO HS PRN Muscle Spasm 01/03/23 01/03/23 History Allergies Allergy/AdvReac Type Severity Reaction Status Date / Time oxycodone Allergy Unknown Unknown Verified 01/02/23 09:11 hydrocodone AdvReac Severe Nausea and Verified 01/02/23 09:11 Vomiting prochlorperazine AdvReac Severe Itching Verified 01/02/23 09:11 Vital Signs Vital Signs - 24 hr 01/02/23 17:43 01/02/23 20:34 01/02/23 22:30 Temperature 98.0 F Pulse Rate 84 77 62 Respiratory Rate 17 14 14 Blood Pressure 116/80 123/82 134/79 Pulse Oximetry 97 99 98 Oxygen Delivery Room Air 01/03/23 00:41 01/03/23 01:45 01/03/23 02:07 Emily
[2023-01-03] MEDS: GABAPENTIN 300 MG CAPSULE 600 MG PO (20:53)
[2023-01-03] MEDS: clonazePAM (*CRX) 0.5 MG TABLET 1.5 MG PO (20:54)
[2023-01-03] MEDS: TIZANIDINE HCL 4 MG TABLET PO (21:04)
[2023-01-03 21:32] VITALS: BP 107/73; PULSE 83; RESP 14; TEMP 36.7; O2SAT 98
--- NOTE | 2023-01-03 21:37 | PHAR ---
VERIFIED Home medication: Rytary 23.75mg/95 mg takes 2 tablets by mouth daily in the AM. SENT BACK TO [address] [place] [address] FOR INPATIENT USE.
[2023-01-03] MEDS: SENNA/DOCUSATE SODIUM TABLET 1 TAB PO (22:03)
[2023-01-04 05:59] VITALS: BP 96/63; PULSE 57; RESP 13; TEMP 36.3; O2SAT 94
[2023-01-04 07:00] LABS: Basophils Percent Auto 0.6 % (0.2-1.2); Eosinophils Absolute Auto 0.1 K/mm3 (0-0.3); Eosinophils Percent Auto 2.1 % (0-4.4); Hemoglobin 11.3 g/dL (12.0-15.0); Immature Granulocyte Absolute 0.01 K/mm3 (0.00-0.031); Immature Granulocyte Percent A 0.2 % (0-0.5); Lymphocytes Absolute Auto 2.05 K/mm3 (0.9-3.2); Lymphocytes Percent Auto 42.7 % (18.3-44.2); Mean Corpuscular HGB Conc 32.3 g/dl (32-36); Mean Corpuscular Volume 92.8 fl (80-100); Mean Platelet Volume 10.1 fl (7.4-10.4); Monocytes Absolute Auto 0.4 K/mm3 (0.1-0.6); Monocytes Percent Auto 8.3 % (2.6-8.5); Neutrophils Absolute Auto 2.2 K/mm3 (1.3-6.7); Neutrophils Percent Auto 46.1 % (45.5-73.1); Platelet Count Result 210 k/mm3 (150-375); Red Blood Count 3.77 M/mm3 (4.2-5.4); White Blood Count 4.8 K/mm3 (4.5-10.0)
[2023-01-04 07:10] LABS: Alanine Aminotransferase 13 U/L (6-35); Albumin Level 3.8 g/dL (3.5-5.1); Alkaline Phosphatase 97 U/L (38-126); Anion Gap 9 mmol/L (8-16); Aspartate Amino Transferase 20 U/L (14-36); Bilirubin,Total 0.3 mg/dL (0.2-1.3); Blood Urea Nitrogen 23 mg/dL (7-17); Calcium 9.1 mg/dL (8.4-10.2); Carbon Dioxide 26 mmol/L (22-30); Chloride 106 mmol/L (98-107); Estimated CRCL calculation 80 ml/min; Estimated Glomerular Filt Rate > 60; Glucose 101 mg/dL (65-110); Magnesium 2.4 mg/dL (1.6-2.3); Potassium 3.4 mmol/L (3.4-5.0); Sodium 141 mmol/L (137-145)
[2023-01-04 08:15] LABS: Folic Acid 5.6 ng/mL (2.76->20)
[2023-01-04] MEDS: FAMOTIDINE 20 MG TABLET PO ×2 (08:19→16:28)
[2023-01-04] MEDS: oxyBUTYnin CHLORIDE XL 5 MG TAB.ER.24 10 MG PO (08:19)
[2023-01-04] MEDS: DICLOFENAC SOD 75 MG TABLET.EC PO ×2 (08:19→16:28)
[2023-01-04] MEDS: buPROPion HCL XL (24 HR) 150 MG TABCR 300 MG PO (08:19)
[2023-01-04] MEDS: SENNA/DOCUSATE SODIUM TABLET 1 TAB PO (13:45)
--- NOTE | 2023-01-04 13:46 | PM.IMPN ---
Progress Note: A&P Assessment and Plan (1) Acute UTI: Code(s): N39.0 - Urinary tract infection, site not specified Status: Acute (2) Weakness: Code(s): R53.1 - Weakness Status: Acute (3) Depression: Qualifiers: Depression Type: major depressive disorder Major depression recurrence: single episode Active/Remission status: currently active Major depression episode severity: mild Qualified Code(s): F32.0 - Major depressive disorder, single episode, mild Code(s): F32.9 - Major depressive disorder, single episode, unspecified Status: Acute (4) Anxiety: Code(s): F41.9 - Anxiety disorder, unspecified Status: Acute (5) Multiple falls: Code(s): R29.6 - Repeated falls Status: Acute (6) Parkinsons disease: Code(s): G20 - Parkinson's disease Status: Acute (7) Peripheral neuropathy: Code(s): G62.9 - Polyneuropathy, unspecified Status: Acute (8) Neuropathy, lumbosacral (radicular): Code(s): M54.17 - Radiculopathy, lumbosacral region Status: Acute Plan 52-year-old female presents to the ER for generalized weakness. History of Parkinson's disease and she lives alone. Has been having recurrent falls and not eating well. no specific injury. Do sound to have UTI and was started on antibiotics in the ER. She is getting admitted for further treatment and rehabilitation needs assessment. Cbc and CMP were unremarkable.CT head is negative for any acute abnormality. Follow urine culture. which showed no gross. Finish course of ceftriaxone. recurrent falls: TSH came back normal B12 and folic acid level is normal. RPR pending. PT OT pending and placement in process Subjective Date/time seen: 01/04/23 13:46 Interval history: feels okay and stronger has not work with therapy yet. No shortness of breath chest pain Review of Systems Review of Systems: All systems reviewed & are unremarkable except as noted in HPI and below Exam Narrative: GENERAL: Well-appearing, well-nourished, and in no acute distress. HEAD: Normocephalic, atraumatic. EYES: PERRLA and EOMI. ENT: Nares clear, no rhinorrhea or epistaxis. Mucous membranes moist. NECK: Supple. No adenopathy or masses. CHEST: Clear to auscultation. No respiratory distress. No wheezes rales or rhonchi HEART: Regular rate and rhythm. No murmur heard. Normal peripheral pulses. ABDOMEN: Soft, nontender, nondistended, normal active bowel sounds. EXTREMITIES: Normal range of motion. No edema. SKIN: Warm, dry, no rash. NEURO: No focal deficits. Alert and oriented x3. CN II-XII grossly intact PSYCH: Normal mood and affect Objective Data Vital Signs Vital Signs: Vital Signs - 24 hr 01/03/23 14:35 01/03/23 21:32 01/03/23 20:00 Temperature 98.9 F 98.1 F Pulse Rate 85 83 Respiratory Rate 16 14 Blood Pressure 96/70 L 107/73 Pulse Oximetry 98 98 Oxygen Delivery Room Air 01/04/23 05:59 01/04/23 08:35 01/04/23 09:54 Temperature 97.4 F L Pulse Rate 57 L Respiratory Rate 13 Blood Pressure 96/63 L Pulse Oximetry 94 Oxygen Delivery Room Air Room Air Intake/Output Intake/Output: Intake & Output 01/01/23 01/02/23 01/03/23 01/04/23 23:59 23:59 23:59 23:59 Intake Total 530 858 Output Total 600 600 Balance -70 258 Meds/Results Medications: Active Medications Generic Name Dose Route Start Last Admin Trade Name Freq PRN Reason Stop Dose Admin Acetaminophen 500 mg 01/03/23 17:25 Acetaminophen 500 Mg Tablet PO Q6H PRN Pain Bupropion HCl 300 mg 01/04/23 09:00 01/04/23 08:19 Bupropion Hcl Xl (24 Hr) 150 Mg Tabcr PO 300 mg QAM DEEJAY Administration Clonazepam 1.5 mg 01/03/23 21:00 01/03/23 20:54 Clonazepam (*Crx) 0.5 Mg Tablet PO 1.5 mg QHS DEEJAY Administration Diclofenac Sodium 75 mg 01/04/23 09:00 01/04/23 08:19 Diclofenac Sod 75 Mg Tablet.Ec PO 75 mg BID [facility] Administratio
[2023-01-04 14:00] VITALS: BP 97/67; PULSE 79; RESP 14; TEMP 35.8; O2SAT 96
[2023-01-04] MEDS: GABAPENTIN 300 MG CAPSULE 600 MG PO (21:36)
[2023-01-04] MEDS: clonazePAM (*CRX) 0.5 MG TABLET 1.5 MG PO (21:36)
[2023-01-04 22:00] VITALS: BP 112/80; PULSE 80; RESP 20; TEMP 36; O2SAT 97
[2023-01-04] MEDS: TIZANIDINE HCL 4 MG TABLET PO (22:42)
[2023-01-05 05:54] VITALS: BP 104/62; PULSE 61; RESP 22; TEMP 35.8; O2SAT 100
[2023-01-05 07:42] LABS: Rapid Plasma Reagin Non-Reactive (NonReactive)
[2023-01-05] MEDS: DICLOFENAC SOD 75 MG TABLET.EC PO ×2 (09:00→16:15)
[2023-01-05] MEDS: FAMOTIDINE 20 MG TABLET PO ×2 (09:00→16:15)
[2023-01-05] MEDS: oxyBUTYnin CHLORIDE XL 5 MG TAB.ER.24 10 MG PO (09:00)
[2023-01-05] MEDS: buPROPion HCL XL (24 HR) 150 MG TABCR 300 MG PO (09:00)
[2023-01-05 14:00] VITALS: BP 99/63; PULSE 80; RESP 16; TEMP 36; O2SAT 97
--- NOTE | 2023-01-05 14:17 | PM.IMPN ---
Progress Note: A&P Assessment and Plan (1) Acute UTI: Code(s): N39.0 - Urinary tract infection, site not specified Status: Acute (2) Weakness: Code(s): R53.1 - Weakness Status: Acute (3) Depression: Qualifiers: Depression Type: major depressive disorder Major depression recurrence: single episode Active/Remission status: currently active Major depression episode severity: mild Qualified Code(s): F32.0 - Major depressive disorder, single episode, mild Code(s): F32.9 - Major depressive disorder, single episode, unspecified Status: Acute (4) Anxiety: Code(s): F41.9 - Anxiety disorder, unspecified Status: Acute (5) Multiple falls: Code(s): R29.6 - Repeated falls Status: Acute (6) Parkinsons disease: Code(s): G20 - Parkinson's disease Status: Acute (7) Peripheral neuropathy: Code(s): G62.9 - Polyneuropathy, unspecified Status: Acute (8) Neuropathy, lumbosacral (radicular): Code(s): M54.17 - Radiculopathy, lumbosacral region Status: Acute Plan 52-year-old female presents to the ER for generalized weakness. History of Parkinson's disease and she lives alone. Has been having recurrent falls and not eating well. no specific injury. Do sound to have UTI and was started on antibiotics in the ER. She is getting admitted for further treatment and rehabilitation needs assessment. Cbc and CMP were unremarkable.CT head is negative for any acute abnormality. Follow urine culture. which showed no gross. Finish course of ceftriaxone. recurrent falls: TSH came back normal B12 and folic acid level is normal. RPR Nonreactive. PT OT pending and placement in process Subjective Date/time seen: 01/05/23 14:17 Interval history: no overnight events. Feels okay. Work with therapy. Denies any new complaints. Review of Systems Review of Systems: All systems reviewed & are unremarkable except as noted in HPI and below Exam Narrative: GENERAL: Well-appearing, well-nourished, and in no acute distress. HEAD: Normocephalic, atraumatic. EYES: PERRLA and EOMI. ENT: Nares clear, no rhinorrhea or epistaxis. Mucous membranes moist. NECK: Supple. No adenopathy or masses. CHEST: Clear to auscultation. No respiratory distress. No wheezes rales or rhonchi HEART: Regular rate and rhythm. No murmur heard. Normal peripheral pulses. ABDOMEN: Soft, nontender, nondistended, normal active bowel sounds. EXTREMITIES: Normal range of motion. No edema. SKIN: Warm, dry, no rash. NEURO: No focal deficits. Alert and oriented x3. CN II-XII grossly intact PSYCH: Normal mood and affect Objective Data Vital Signs Vital Signs: Vital Signs - 24 hr 01/04/23 22:00 01/05/23 05:54 01/05/23 08:00 Temperature 96.8 F L 96.5 F L Pulse Rate 80 61 Respiratory Rate 20 22 H Blood Pressure 112/80 104/62 Pulse Oximetry 97 100 Oxygen Delivery Room Air 01/05/23 14:00 Temperature 96.8 F L Pulse Rate 80 Respiratory Rate 16 Blood Pressure 99/63 L Pulse Oximetry 97 Oxygen Delivery Intake/Output Intake/Output: Intake & Output 01/02/23 01/03/23 01/04/23 01/05/23 23:59 23:59 23:59 23:59 Intake Total 580 1148 170 Output Total 600 1250 750 Balance -20 -102 -580 Meds/Results Medications: Active Medications Generic Name Dose Route Start Last Admin Trade Name Freq PRN Reason Stop Dose Admin Acetaminophen 500 mg 01/03/23 17:25 Acetaminophen 500 Mg Tablet PO Q6H PRN Pain Bupropion HCl 300 mg 01/04/23 09:00 01/05/23 09:00 Bupropion Hcl Xl (24 Hr) 150 Mg Tabcr PO 300 mg QAM DEEJAY Administration Clonazepam 1.5 mg 01/03/23 21:00 01/04/23 21:36 Clonazepam (*Crx) 0.5 Mg Tablet PO 1.5 mg QHS DEEJAY Administration Diclofenac Sodium 75 mg 01/04/23 09:00 01/05/23 09:00 Diclofenac Sod 75 Mg Tablet.Ec PO 75 mg BID DEEJAY Administration Famotidine 20 mg 01/04/23 09:00
[2023-01-05] MEDS: GABAPENTIN 300 MG CAPSULE 600 MG PO (20:08)
[2023-01-05] MEDS: clonazePAM (*CRX) 0.5 MG TABLET 1.5 MG PO (20:17)
[2023-01-05 22:00] VITALS: BP 103/58; PULSE 79; RESP 14; TEMP 36.1; O2SAT 97
[2023-01-05] MEDS: TIZANIDINE HCL 4 MG TABLET PO (22:02)
[2023-01-06 05:42] VITALS: BP 99/60; PULSE 63; RESP 13; TEMP 36.1; O2SAT 98
[2023-01-06 08:00] VITALS: O2SAT 98
[2023-01-06] MEDS: DICLOFENAC SOD 75 MG TABLET.EC PO ×2 (08:31→16:03)
[2023-01-06] MEDS: buPROPion HCL XL (24 HR) 150 MG TABCR 300 MG PO (08:31)
[2023-01-06] MEDS: FAMOTIDINE 20 MG TABLET PO ×2 (08:31→16:03)
[2023-01-06] MEDS: oxyBUTYnin CHLORIDE XL 5 MG TAB.ER.24 10 MG PO (08:31)
--- NOTE | 2023-01-06 11:18 | PCOTNOTE ---
The patient treatment was not able to be completed patient was with PT will attempt patient again after lunch. Will plan to continue treatment per plan of care.
[2023-01-06 14:00] VITALS: BP 103/59; PULSE 69; RESP 16; TEMP 36.3; O2SAT 99
--- NOTE | 2023-01-06 15:00 | PM.IMPN ---
Progress Note: A&P Assessment and Plan (1) Acute UTI: Code(s): N39.0 - Urinary tract infection, site not specified Status: Acute (2) Weakness: Code(s): R53.1 - Weakness Status: Acute (3) Depression: Qualifiers: Depression Type: major depressive disorder Major depression recurrence: single episode Active/Remission status: currently active Major depression episode severity: mild Qualified Code(s): F32.0 - Major depressive disorder, single episode, mild Code(s): F32.9 - Major depressive disorder, single episode, unspecified Status: Acute (4) Anxiety: Code(s): F41.9 - Anxiety disorder, unspecified Status: Acute (5) Multiple falls: Code(s): R29.6 - Repeated falls Status: Acute (6) Parkinsons disease: Code(s): G20 - Parkinson's disease Status: Acute (7) Peripheral neuropathy: Code(s): G62.9 - Polyneuropathy, unspecified Status: Acute (8) Neuropathy, lumbosacral (radicular): Code(s): M54.17 - Radiculopathy, lumbosacral region Status: Acute Plan 52-year-old female presents to the ER for generalized weakness. History of Parkinson's disease and she lives alone. Has been having recurrent falls and not eating well. no specific injury. Do sound to have UTI and was started on antibiotics in the ER. She is getting admitted for further treatment and rehabilitation needs assessment. Cbc and CMP were unremarkable.CT head is negative for any acute abnormality. Follow urine culture. which showed no gross. Finish course of ceftriaxone switched to oral. recurrent falls: TSH came back normal B12 and folic acid level is normal. RPR Nonreactive. PT OT pending and placement in process Subjective Date/time seen: 01/06/23 15:00 Interval history: no overnight events. Feels okay. Work with therapy. Denies any new complaints. Review of Systems Review of Systems: All systems reviewed & are unremarkable except as noted in HPI and below Exam Narrative: GENERAL: Well-appearing, well-nourished, and in no acute distress. HEAD: Normocephalic, atraumatic. EYES: PERRLA and EOMI. ENT: Nares clear, no rhinorrhea or epistaxis. Mucous membranes moist. NECK: Supple. No adenopathy or masses. CHEST: Clear to auscultation. No respiratory distress. No wheezes rales or rhonchi HEART: Regular rate and rhythm. No murmur heard. Normal peripheral pulses. ABDOMEN: Soft, nontender, nondistended, normal active bowel sounds. EXTREMITIES: Normal range of motion. No edema. SKIN: Warm, dry, no rash. NEURO: No focal deficits. Alert and oriented x3. CN II-XII grossly intact PSYCH: Normal mood and affect Objective Data Vital Signs Vital Signs: Vital Signs - 24 hr 01/05/23 20:00 01/05/23 22:00 01/06/23 05:42 Temperature 96.9 F L 96.9 F L Pulse Rate 79 63 Respiratory Rate 14 13 Blood Pressure 103/58 L 99/60 L Pulse Oximetry 97 98 Oxygen Delivery Room Air 01/06/23 08:00 Temperature Pulse Rate Respiratory Rate Blood Pressure Pulse Oximetry 98 Oxygen Delivery Room Air Intake/Output Intake/Output: Intake & Output 01/03/23 01/04/23 01/05/23 01/06/23 23:59 23:59 23:59 23:59 Intake Total 580 3038 042 1342 Output Total 600 1250 1065 600 Balance -20 -102 -535 760 Meds/Results Medications: Active Medications Generic Name Dose Route Start Last Admin Trade Name Freq PRN Reason Stop Dose Admin Acetaminophen 500 mg 01/03/23 17:25 Acetaminophen 500 Mg Tablet PO Q6H PRN Pain Amoxicillin/Clavulanate Potassium 1 tablet 01/06/23 21:00 Amoxicillin/Clavulanate K 875-125 Mg Tab PO 01/09/23 09:01 Q12HR DEEJAY Bupropion HCl 300 mg 01/04/23 09:00 01/06/23 08:31 Bupropion Hcl Xl (24 Hr) 150 Mg Tabcr PO 300 mg QAM DEEJAY Administration Clonazepam 1.5 mg 01/03/23 21:00 01/05/23 20:17 Clonazepam (*Crx) 0.5 Mg Tablet PO 1.5 mg QHS DEEJAY Administration Diclofenac Sod
[2023-01-06] MEDS: AMOXICILLIN/CLAVULANATE K 875-125 MG TAB 1 TABLET PO (20:47)
[2023-01-06] MEDS: GABAPENTIN 300 MG CAPSULE 600 MG PO (20:47)
[2023-01-06] MEDS: clonazePAM (*CRX) 0.5 MG TABLET 1.5 MG PO (20:48)
[2023-01-06] MEDS: TIZANIDINE HCL 4 MG TABLET PO (20:53)
[2023-01-06 22:00] VITALS: BP 111/76; PULSE 88; RESP 14; TEMP 36.1; O2SAT 97
[2023-01-07 05:43] VITALS: BP 100/69; PULSE 63; RESP 16; TEMP 35.9; O2SAT 97
[2023-01-07] MEDS: AMOXICILLIN/CLAVULANATE K 875-125 MG TAB 1 TABLET PO (08:12)
[2023-01-07] MEDS: FAMOTIDINE 20 MG TABLET PO (08:13)
[2023-01-07] MEDS: oxyBUTYnin CHLORIDE XL 5 MG TAB.ER.24 10 MG PO (08:13)
[2023-01-07] MEDS: buPROPion HCL XL (24 HR) 150 MG TABCR 300 MG PO (08:13)
[2023-01-07] MEDS: DICLOFENAC SOD 75 MG TABLET.EC PO (08:13)
--- NOTE | 2023-01-07 09:01 | PM.IMPN ---
Progress Note: A&P Assessment and Plan (1) Acute UTI: Code(s): N39.0 - Urinary tract infection, site not specified Status: Acute (2) Weakness: Code(s): R53.1 - Weakness Status: Acute (3) Depression: Qualifiers: Active/Remission status: currently active Depression Type: major depressive disorder Major depression episode severity: mild Major depression recurrence: single episode Qualified Code(s): F32.0 - Major depressive disorder, single episode, mild Code(s): F32.9 - Major depressive disorder, single episode, unspecified Status: Acute (4) Anxiety: Code(s): F41.9 - Anxiety disorder, unspecified Status: Acute (5) Multiple falls: Code(s): R29.6 - Repeated falls Status: Acute (6) Parkinsons disease: Code(s): G20 - Parkinson's disease Status: Acute (7) Peripheral neuropathy: Code(s): G62.9 - Polyneuropathy, unspecified Status: Acute (8) Neuropathy, lumbosacral (radicular): Code(s): M54.17 - Radiculopathy, lumbosacral region Status: Acute Plan 52-year-old female presents to the ER for generalized weakness. Resulting from multiple comorbidities CT head is negative for any acute abnormality. History of Parkinson's disease and she lives alone. Has been having recurrent falls and not eating well. no specific injury. UTI was started on antibiotics in the ER. Cbc and CMP were unremarkable. Follow urine culture. which showed no gross. Finish course of ceftriaxone switched to oral. recurrent falls: TSH came back normal B12 and folic acid level is normal. RPR Nonreactive. She is getting admitted for further treatment and rehabilitation needs assessment. Consult PT OT social contact worker case operator for evaluation and assist in placement PT OT pending and placement in process Subjective Date/time seen: 01/07/23 09:01 Interval history: I saw and examined patient. Patient still has a general weakness, no new issue even overnight, patient is afebrile, hemodynamically stable, Exam Narrative: GENERAL: Well-appearing, well-nourished, and in no acute distress. HEAD: Normocephalic, atraumatic. EYES: PERRLA and EOMI. ENT: Nares clear, no rhinorrhea or epistaxis. Mucous membranes moist. NECK: Supple. No adenopathy or masses. CHEST: Clear to auscultation. No respiratory distress. No wheezes rales or rhonchi HEART: Regular rate and rhythm. No murmur heard. Normal peripheral pulses. ABDOMEN: Soft, nontender, nondistended, normal active bowel sounds. EXTREMITIES: Normal range of motion. No edema. SKIN: Warm, dry, no rash. NEURO: No focal deficits. Alert and oriented x3. CN II-XII grossly intact, but general weakness PSYCH: Normal mood and affect Objective Data Vital Signs Vital Signs: Vital Signs - 24 hr 01/06/23 14:00 01/06/23 22:00 01/07/23 05:43 Temperature 97.4 F L 97.0 F L 96.6 F L Pulse Rate 69 88 63 Respiratory Rate 16 14 16 Blood Pressure 103/59 L 111/76 100/69 Pulse Oximetry 99 97 97 Intake/Output Intake/Output: Intake & Output 01/04/23 01/05/23 01/06/23 01/07/23 23:59 23:59 23:59 23:59 Intake Total 2407 027 4543 360 Output Total 1250 1065 2100 300 Balance -102 -535 -500 60 Meds/Results Medications: Active Medications Generic Name Dose Route Start Last Admin Trade Name Freq PRN Reason Stop Dose Admin Acetaminophen 500 mg 01/03/23 17:25 Acetaminophen 500 Mg Tablet PO Q6H PRN Pain Amoxicillin/Clavulanate Potassium 1 tablet 01/06/23 21:00 01/07/23 08:12 Amoxicillin/Clavulanate K 875-125 Mg Tab PO 01/09/23 09:01 1 tablet Q12HR EDEJAY Administration Bupropion HCl 300 mg 01/04/23 09:00 01/07/23 08:13 Bupropion Hcl Xl (24 Hr) 150 Mg Tabcr PO 300 mg QAM DEEJAY Administration Clonazepam 1.5 mg 01/03/23 21:00 01/06/23 20:48 Clonazepam (*Crx) 0.5 Mg Tablet PO 1.5 mg QHS DEEJAY Administration Diclofenac Sodium 75 mg
--- NOTE | 2023-01-07 10:49 | PM.DS ---
DS: Admitting Diagnosis Discharge Date today Admitting Diagnosis . (1) Acute UTI: ?Code(s): N39.0 - Urinary tract infection, site not specified ?Status:?Acute (2) Weakness: ?Code(s): R53.1 - Weakness ?Status:?Acute (3) Depression: DS: Discharge Diagnosis Discharge Diagnosis (1) Acute UTI: Code(s): N39.0 - Urinary tract infection, site not specified Status: Acute (2) Weakness: Code(s): R53.1 - Weakness Status: Acute (3) Depression: Qualifiers: Depression Type: major depressive disorder Major depression recurrence: single episode Active/Remission status: currently active Major depression episode severity: mild Qualified Code(s): F32.0 - Major depressive disorder, single episode, mild Code(s): F32.9 - Major depressive disorder, single episode, unspecified Status: Acute (4) Anxiety: Code(s): F41.9 - Anxiety disorder, unspecified Status: Acute (5) Multiple falls: Code(s): R29.6 - Repeated falls Status: Acute (6) Parkinsons disease: Code(s): G20 - Parkinson's disease Status: Acute (7) Peripheral neuropathy: Code(s): G62.9 - Polyneuropathy, unspecified Status: Acute (8) Neuropathy, lumbosacral (radicular): Code(s): M54.17 - Radiculopathy, lumbosacral region Status: Acute DS: Summary Hospital Course Reason for hospitalization: General weakness Hospital Course: 52-year-old female presents to the ER for generalized weakness. General weakness resulting from multiple comorbidities CT head is negative for any acute abnormality. History of Parkinson's disease and she lives alone. Has been having recurrent falls and not eating well. no specific injury. UTI was started on antibiotics in the ER. Cbc and CMP were unremarkable. Follow urine culture. which showed no gross. Finish course of ceftriaxone switched to oral. recurrent falls: TSH came back normal B12 and folic acid level is normal. RPR Nonreactive. She is getting admitted for further treatment and rehabilitation needs assessment. Consult PT OT social contact worker mattress spring encaser for evaluation and assist in placement Patient will be discharged to rehab today hospital course uneventful, patient is afebrile, hemodynamically stable at discharge Time Spent with Patient Time attestation: Total time spent providing and/or coordinating discharge services: Exam Narrative: GENERAL: Well-appearing, well-nourished, and in no acute distress. HEAD: Normocephalic, atraumatic. EYES: PERRLA and EOMI. ENT: Nares clear, no rhinorrhea or epistaxis. Mucous membranes moist. NECK: Supple. No adenopathy or masses. CHEST: Clear to auscultation. No respiratory distress. No wheezes rales or rhonchi HEART: Regular rate and rhythm. No murmur heard. Normal peripheral pulses. ABDOMEN: Soft, nontender, nondistended, normal active bowel sounds. EXTREMITIES: Normal range of motion. No edema. SKIN: Warm, dry, no rash. NEURO: No focal deficits. Alert and oriented x3. CN II-XII grossly intact, but general weakness PSYCH: Normal mood and affect Discharge Plan Discharge Attending physician on discharge: Cristiano Treviño Discharging Clinician: Cristiano Treviño Patient Disposition: Inpatient Rehab Facility Activity: as tolerated Diet: heart healthy Stand Alone Forms: General Discharge Information Discharge Medications: New zolpidem 5 mg Tablet 5 mg PO QHS PRN (Reason: Sleep) Qty: 20 0RF Continued gabapentin 600 mg tablet 600 mg PO QHS clonazepam 1 mg tablet 1.5 mg PO QHS Rx Instructions: administer 30 minutes before bedtime zolpidem 5 mg tablet 5 mg PO QHS PRN (Reason: Sleep) oxybutynin chloride 10 mg tablet extended release 24hr 10 mg PO DAILY sennosides-docusate sodium [Senokot-S] 8.6-50 mg Tablet 1 tab PO Q12HR PRN (Reason: Constipation) Qty: 30 0RF famotidine 20 mg
== END 2023-01-07 14:10 ==
LOC: ANHED 01-03 00:47 → ANH3MEDSUR 01-05 12:25
PROVIDERS: Student in an Organized Health Care Education/Training Program; Admitting Provider Internal Medicine; Emergency Provider Physician Assistant; PCP Family Medicine; Visit Provider Hospitalist
DX: N39.0 Urinary tract infection, site not specified (principal); R53.1 Weakness; G20 Parkinson's disease; R29.6 Repeated falls; G62.9 Polyneuropathy, unspecified; M54.17 Radiculopathy, lumbosacral region; Z96.82 Presence of neurostimulator; Z11.3 Encounter for screening for infections with a predominantly sexual mode of transmission; M62.838 Other muscle spasm; K59.00 Constipation, unspecified; F41.9 Anxiety disorder, unspecified; F32.0 Major depressive disorder, single episode, mild; G47.00 Insomnia, unspecified; M48.061 Spinal stenosis, lumbar region without neurogenic claudication; Z87.891 Personal history of nicotine dependence; Z79.1 Long term (current) use of non-steroidal anti-inflammatories (NSAID); Z79.899 Other long term (current) drug therapy
CPT/HCPCS: 36415; 70450; 80053; 81001; 82607; 82746; 83690; 83735; 84443; 85025; 86592; 87086; 96365; 97110; 97116; 97161; 97165; 97530; 97535; 99285; A9270; G0378; J0696

== ENCOUNTER 2023-05-14 15:43 | Outpatient (CLI) | payer MEDICARE, SELFPAY ==
[2023-05-14 16:07] LABS: Hematocrit 40.3 % (37.0-47.0); Mean Corpuscular HGB Conc 32.3 g/dl (32-36); Mean Corpuscular Hemoglobin 29.1 pg (26-34); Mean Corpuscular Volume 90.4 fl (80-100); Mean Platelet Volume 9.4 fl (7.4-10.4); Platelet Count Result 239 k/mm3 (150-375); Red Blood Count 4.46 M/mm3 (4.2-5.4); Red Cell Distribution Width 12.7 % (11.5-14.5); White Blood Count 5.1 K/mm3 (4.5-10.0)
[2023-05-14 16:23] LABS: Alanine Aminotransferase 12 U/L (6-35); Albumin Level 4.6 g/dL (3.5-5.1); Alkaline Phosphatase 127 U/L (38-126); Anion Gap 10 mmol/L (8-16); Aspartate Amino Transferase 26 U/L (14-36); Bilirubin,Total 0.7 mg/dL (0.2-1.3); Blood Urea Nitrogen 24 mg/dL (7-17); Calcium 9.5 mg/dL (8.4-10.2); Carbon Dioxide 25 mmol/L (22-30); Chloride 106 mmol/L (98-107); Cholesterol 218 mg/dL (0-200); Estimated Glomerular Filt Rate > 60; Glucose 98 mg/dL (65-110); HDL Direct 63 mg/dL; Potassium 4.2 mmol/L (3.4-5.0); Sodium 141 mmol/L (137-145); Triglycerides 130 mg/dL (<150)
[2023-05-14 16:36] LABS: LDL Cholesterol Direct 101 mg/dL
== END 2023-05-14 15:44 | disposition home or self-care (01) ==
LOC: ANHLAB 15:45
PROVIDERS: PCP Family Medicine; Visit Provider Physician Assistant
DX: D64.9 Anemia, unspecified (principal); Z13.1 Encounter for screening for diabetes mellitus; E78.5 Hyperlipidemia, unspecified; Z13.220 Encounter for screening for lipoid disorders
CPT/HCPCS: 36415; 80053; 80061; 85027

== ENCOUNTER 2023-05-26 10:53 | Emergency (ER) | payer MEDICARE, SELFPAY ==
[2023-05-26 11:08] VITALS: BP 114/78; PULSE 109; RESP 20; TEMP 36.6; O2SAT 96
--- NOTE | 2023-05-26 12:11 | ED.URI ---
HPI - URI/Sore Throat General Chief Complaint: Upper Respiratory Infection Stated Complaint: Sore Throat Time Seen by Provider: 05/26/23 11:55 Source: patient, RN notes reviewed and old records reviewed Mode of arrival: ambulatory (walker) Limitations: no limitations History of Present Illness HPI Narrative: 52-year-old female with complaints of cough with congestion,some heaviness in chest, sore throat, some hoarseness, ear pain/pressure with no fever for 1 week duration. Patient reports that she has been taking Mucinex and Coricidin brand decongestant for her symptoms. Patient denies any shortness of breath,no substernal chest pain, nausea or diaphoresis, denies bodyaches or headache pain. MD elicited complaint: cough, sore throat, rhinorrhea, nasal congestion and other (Ear pain) Pertinent past history: pneumonia Onset (ago): week(s) (1) Consistency: constant Pain scale (0-10): 2 Able to tolerate fluids by mouth: Yes Treatments prior to arrival: other (Coricidin and Mucinex) Related Data Home Medications Medication Instructions Recorded Confirmed clonazepam 1 mg tablet 1.5 mg PO QHS 11/23/20 05/26/23 oxybutynin chloride 10 mg 10 mg PO DAILY 06/20/21 05/26/23 tablet,extended release 24 hr tizanidine 4 mg tablet (Zanaflex) 4 mg PO HS PRN Muscle Spasm 01/03/23 05/26/23 diclofenac sodium 75 mg 75 mg PO BID 05/26/23 05/26/23 tablet,delayed release gabapentin 600 mg tablet 600 mg PO DAILY 05/26/23 05/26/23 zolpidem 5 mg tablet 5 mg PO QHS 05/26/23 05/26/23 Allergies Allergy/AdvReac Type Severity Reaction Status Date / Time oxycodone Allergy Unknown Unknown Verified 05/26/23 11:19 hydrocodone AdvReac Severe Nausea and Verified 05/26/23 11:19 Vomiting prochlorperazine AdvReac Severe Itching Verified 05/26/23 11:19 Review of Systems Review of Systems: CONSTITUTIONAL: Denies malaise, chills, sweats, or fever. EYES: Denies visual changes, redness, or discharge. ENT: Reports rhinorrhea, congestion, sinus pain, otalgia and sore throat, and hoarseness CARDIOVASCULAR: Denies chest pain, palpitations, or edema. RESPIRATORY: Reports cough.? Denies dyspnea, reports heaviness chest with cough GASTROINTESTINAL: Denies abdominal pain, nausea, vomiting, diarrhea SKIN: Denies rash or itching. MUSCULOSKELETAL: Denies myalgia. NEUROLOGIC: Denies headache. All systems reviewed & are unremarkable except as noted in HPI and below PMFSH Past Medical History Medical History Anxiety Arthritis Depression Gait disorder Insomnia Lumbar canal stenosis Parkinsons disease Surgical History Surgical History (Updated 05/28/23 @ 08:58 by Sarah Wolf NP) History of tonsillectomy S/P deep brain stimulator placement S/P left knee arthroscopy S/P lumbar laminectomy Family History Family History Mother Hypertension Family history of rheumatoid arthritis Father Family history of lung cancer Sibling Family history of lung cancer Social History Social History Smoking packs per day: 1 Smoking cigarettes per day: 20.0 Smoking status: Former smoker Tobacco type: cigarettes Second hand tobacco smoke exposure: No Smoking end date: 05/25/13 Alcohol intake: never Substance use: never Substance use type: does not use Lack of Transportation: No Lack of Food: Never True Current Housing: I Have Housing Concerned About Future Housing: No Difficulty Paying Gas/Electric Bills: No Difficulty Paying for Meds: No Currently Unemployed: No Education: Bachelor's Degree Difficulty w/ Childcare or Family Care: No Gender identity (if verbalized by the patient): Female Spiritual care concerns: No Agree to blood products: Yes Comments At time of signature, agree with nursing past medical, surgical, social and
== END 2023-05-26 12:20 | disposition home or self-care (01) ==
PROVIDERS: Emergency Provider Registered Nurse; PCP Physician Assistant
DX: J06.9 Acute upper respiratory infection, unspecified (principal); G20.A1 Parkinson's disease without dyskinesia, without mention of fluctuations; Z87.891 Personal history of nicotine dependence; Z79.899 Other long term (current) drug therapy
CPT/HCPCS: 99213; G0463

== ENCOUNTER 2023-10-01 13:52 | Outpatient (CLI) | payer MEDICARE, SELFPAY ==
--- NOTE | ~2023-10-01 | MM_ITS ---
EXAMINATION: MM screening stephanie BI w christy HISTORY: Screening mammogram TECHNIQUE: Craniocaudal and mediolateral oblique 3-D tomosynthesis images were obtained and synthetic 2-D images were generated. CAD analysis was submitted and interpreted. COMPARISON: 04/09/2021 bilateral screening mammogram BREAST PARENCHYMAL COMPOSITION: The breasts are almost entirely fatty. FINDINGS: Pacemaker device again overlies the left axillary area. There is no evidence of suspicious mass, calcification, or architectural distortion to suggest malignancy in either breast. There has be en no suspicious interval change. IMPRESSION: 1. No mammographic evidence of malignancy. 2. Recommend routine screening mammography in one year. BI-RADS Category 1: Negative Reviewed, dictated and finalized at location B.
== END 2023-10-01 13:53 | disposition home or self-care (01) ==
PROVIDERS: PCP Physician Assistant; Visit Provider Physician Assistant
DX: Z12.31 Encounter for screening mammogram for malignant neoplasm of breast (principal)
CPT/HCPCS: 77063; 77067

== ENCOUNTER 2023-10-26 13:15 | Outpatient (CLI) | payer MEDICARE, SELFPAY ==
[2023-10-26 13:54] LABS: Hematocrit 40.8 % (37.0-47.0); Hemoglobin 13.6 g/dL (12.0-15.0); Mean Corpuscular HGB Conc 33.3 g/dl (32-36); Mean Corpuscular Hemoglobin 29.9 pg (26-34); Mean Corpuscular Volume 89.7 fl (80-100); Mean Platelet Volume 9.4 fl (7.4-10.4); Platelet Count Result 247 k/mm3 (150-375); Red Blood Count 4.55 M/mm3 (4.2-5.4); Red Cell Distribution Width 12.1 % (11.5-14.5); White Blood Count 5.4 K/mm3 (4.5-10.0)
[2023-10-26 14:03] LABS: Alanine Aminotransferase 9 U/L (6-35); Albumin Level 4.7 g/dL (3.5-5.1); Alkaline Phosphatase 111 U/L (38-126); Anion Gap 7 mmol/L (4-12); Aspartate Amino Transferase 20 U/L (14-36); Bilirubin,Total 0.7 mg/dL (0.2-1.3); Blood Urea Nitrogen 27 mg/dL (7-17); Calcium 9.6 mg/dL (8.4-10.2); Carbon Dioxide 26 mmol/L (22-30); Chloride 109 mmol/L (98-107); Estimated Glomerular Filt Rate 58; Glucose 99 mg/dL (65-110); Potassium 4.1 mmol/L (3.4-5.0); Sodium 142 mmol/L (137-145)
== END 2023-10-26 13:16 | disposition home or self-care (01) ==
PROVIDERS: PCP Family Medicine; Visit Provider Physician Assistant Medical
DX: E78.2 Mixed hyperlipidemia (principal); R53.83 Other fatigue; G20.C Parkinsonism, unspecified
CPT/HCPCS: 36415; 80053; 85027

== ENCOUNTER 2024-01-23 18:55 | Observation (INO) | payer MEDICARE, SELFPAY ==
[2024-01-23] VITALS (29 sets, daily range): BP systolic 109–159; BP diastolic 75–145; PULSE 74–111; RESP 13–22; TEMP 36.8; O2SAT 96–100
--- NOTE | ~2024-01-23 | CT_ITS ---
EXAMINATION: CT brain wo con DATE: 01/23/2024 21:36 INDICATION: Generalized weakness and confusion TECHNIQUE: Computed tomography (CT) of the head was performed without intravenous contrast. Sagittal and coronal reconstructions were performed. The mA was adjusted according to patient size. Iterative reconstruction technique was employed. The dose-length product was 681.00 mGy-cm. COMPARISON: head CT dated 01/02/2023 FINDINGS: Again seen are bilateral deep brain stimulators in expected position. No acute intracranial hemorrhag e, acute infarction or abnormal extra axial fluid collection. Ventricles are normal and symmetric. No mass/mass effect. The orbits, paranasal sinuses and mastoid air cells are normal. IMPRESSION: 1. No acute intracranial process. Reviewed, dictated and finalized at location A.
--- NOTE | ~2024-01-23 | XR_ITS ---
EXAMINATION: XR chest 1V portable DATE: 01/23/2024 20:19 INDICATION: Weakness TECHNIQUE: frontal view of the chest was obtained. COMPARISON: Chest radiograph date FINDINGS: The lungs remain clear with no focal airspace opacities, pulmonary edema, pleural effusion or pneumot horax. The cardiomediastinal silhouette is normal. Likely deep brain stimulator projects over the lef t pectoral region with leads extending cephalad lung the left and right sides of the neck and beyond the cephalad margin of the [id number]. . IMPRESSION: 1. No acute cardiopulmonary disease. Reviewed, dictated and finalized at location A.
--- NOTE | 2024-01-23 20:01 | ED.WEAKNESS ---
HPI - Weakness General Chief complaint: Weakness Stated complaint: weaknes Time Seen by Provider: 01/23/24 19:08 Source: patient Mode of arrival: ambulatory Limitations: no limitations History of Present Illness HPI Narrative: this is a 53-year-old female with PMH of Parkinson disease who presents to the ED for chief complaint of generalized weakness over the past several weeks. Family member reports that she has had several falls including 3 falls today. Family is having difficulty with helping the patient with ambulation. Patient normally uses a walker she has been doing for the past 6 months. they state patient has been he living on her own and independent but this is becoming very challenging. Patient states that she feelsglobally weak and fatigued but does not have focal weakness or numbness. Family has not noticed any focal deficits. They state that she has been disoriented slightly at times like not knowing that there is a strong her water bottle Related Data Home Medications Medication Instructions Recorded Confirmed clonazepam 1 mg tablet 1.5 mg PO QHS 11/23/20 01/24/24 oxybutynin chloride 10 mg 10 mg PO DAILY 06/20/21 01/24/24 tablet,extended release 24 hr tizanidine 4 mg tablet (Zanaflex) 4 mg PO HS PRN Muscle Spasm 01/03/23 01/24/24 gabapentin 600 mg tablet 600 mg PO DAILY 05/26/23 01/24/24 zolpidem 5 mg tablet 5 mg PO QHS 05/26/23 01/24/24 Allergies Allergy/AdvReac Type Severity Reaction Status Date / Time oxycodone Allergy Unknown Unknown Verified 01/23/24 19:07 hydrocodone AdvReac Severe Nausea and Verified 01/23/24 19:07 Vomiting prochlorperazine AdvReac Severe Itching Verified 01/23/24 19:07 Review of Systems Review of Systems: All systems as dictated in HPI [facility] Past Medical History Medical History Anxiety Arthritis Depression Gait disorder Insomnia Lumbar canal stenosis Parkinsons disease Surgical History Surgical History History of tonsillectomy S/P deep brain stimulator placement S/P left knee arthroscopy S/P lumbar laminectomy Family History Family History Mother Hypertension Family history of rheumatoid arthritis Father Family history of lung cancer Sibling Family history of lung cancer Social History Social History Smoking packs per day: 1 Smoking cigarettes per day: 20.0 Smoking status: Former smoker Second hand tobacco smoke exposure: No Alcohol intake: never Substance use: never Substance use type: does not use Lack of Transportation: No Lack of Food: Never True Current Housing: I Have Housing Concerned About Future Housing: No Difficulty Paying Gas/Electric Bills: No Difficulty Paying for Meds: No Currently Unemployed: No Education: Bachelor's Degree Difficulty w/ Childcare or Family Care: No Gender identity (if verbalized by the patient): Female Spiritual care concerns: No Agree to blood products: Yes Exam Narrative: GENERAL: Well-appearing, well-nourished, and in no acute distress. HEAD: Normocephalic, atraumatic. EYES: PERRLA and EOMI. ENT: Nares clear, no rhinorrhea or epistaxis. Mucous membranes moist. Oropharynx without tonsillar hypertrophy exudate or other lesions. NECK: Supple. No adenopathy or masses. CHEST: No respiratory distress. Clear to auscultation. No wheezes rales or rhonchi HEART: Regular rate and rhythm. No murmur heard. Normal peripheral pulses. ABDOMEN: Soft, nontender, nondistended, normal active bowel sounds. MSK: Normal range of motion. No edema. SKIN: Warm, dry, no rash. NEURO: Alert and oriented x4. No focal deficits. moves all 4 extremities spontaneously. No pronator drift. No dysarthria. No nystagmus. Category Consultant strength strong and equal. PSYCH: Normal mood and
[2024-01-23 20:05] LABS: Add Urine Microscopic? YES; Appearance Urine Clear (Clear); Color Urine Yellow (Yellow)
[2024-01-23 20:06] LABS: Bilirubin Urine Negative (Negative); Blood Urine Negative (Negative); Glucose Urine UA Negative (Negative); Ketones Urine Negative (Negative); Nitrate Urine Negative (Negative); Protein Urine Negative (Negative); Specific Grav Ur < 1.005 (1.001-1.035)
[2024-01-23 20:07] LABS: Leukocyte Esterase Ur Trace LEU/UL (Negative); Urobilinogen Urine 0.2 mg/dL (<2.0)
[2024-01-23 20:29] LABS: Basophils Absolute Auto 0.1 K/mm3 (0.0-0.1); Basophils Percent Auto 1.3 % (0.2-1.2); Eosinophils Absolute Auto 0.1 K/mm3 (0-0.3); Eosinophils Percent Auto 1.6 % (0-4.4); Hemoglobin 12.5 g/dL (12.0-15.0); Immature Granulocyte Absolute 0.02 K/mm3 (0.00-0.031); Immature Granulocyte Percent A 0.4 % (0-0.5); Lymphocytes Percent Auto 35.8 % (18.3-44.2); Mean Corpuscular HGB Conc 32.9 g/dl (32-36); Mean Corpuscular Hemoglobin 29.3 pg (26-34); Mean Corpuscular Volume 89.2 fl (80-100); Mean Platelet Volume 9.8 fl (7.4-10.4); Monocytes Absolute Auto 0.5 K/mm3 (0.1-0.6); Monocytes Percent Auto 8.9 % (2.6-8.5); Neutrophils Absolute Auto 2.9 K/mm3 (1.3-6.7); Platelet Count Result 232 k/mm3 (150-375); Red Blood Count 4.26 M/mm3 (4.2-5.4); Red Cell Distribution Width 12.8 % (11.5-14.5); White Blood Count 5.6 K/mm3 (4.5-10.0)
[2024-01-23 20:46] LABS: Alanine Aminotransferase 8 U/L (6-35); Albumin Level 4.1 g/dL (3.5-5.1); Alkaline Phosphatase 108 U/L (38-126); Anion Gap 7 mmol/L (4-12); Aspartate Amino Transferase 21 U/L (14-36); Bilirubin,Total 0.4 mg/dL (0.2-1.3); Blood Urea Nitrogen 19 mg/dL (7-17); Calcium 9.3 mg/dL (8.4-10.2); Carbon Dioxide 30 mmol/L (22-30); Chloride 103 mmol/L (98-107); Estimated CRCL calculation 63 ml/min; Estimated Glomerular Filt Rate > 60; Glucose 92 mg/dL (65-110); Potassium 3.9 mmol/L (3.4-5.0); Sodium 140 mmol/L (137-145)
--- NOTE | 2024-01-24 01:23 | ADMGEN ---
This patient, Shilpi Benites, was admitted to Medical Room 343-01. Patient/family oriented to hospital policies and general routines including ID bracelet, bed and alarms, visiting hours, pain management, procedures, bathroom and other care routines, personal items, smoking policy, room service/diet, and visiting hours. Information on how to activate the Rapid Response Team has been discussed. Patient/Family are encouraged to report perceived risks to care and to ask questions if they do not understand what they are told or what they should do.
[2024-01-24 01:40] VITALS: BMI 25.9
[2024-01-24 01:48] VITALS: BMI 25.8
--- NOTE | 2024-01-24 01:58 | PM.IMHP ---
H&P: HPI History of Present Illness Date/Time: 01/24/24 01:58 Chief Complaint: Generalized weakness Narrative: This very pleasant 53-year-old female patient with past medical history significant of Parkinson's disease, status post deep brain stimulator, anxiety, arthritis, depression, gait disorder, insomnia, lumbar central canal stenosis presents to the emergency room with complaints of having increased weakness over past couple of days. She has sustained multiple falls this week secondary to her weakness with the last being today. After discussing with her family patient has decided she needs placement in presented to the emergency room to help facilitate this. She denies any acute pain, any acute dyspnea or any other acute symptoms this time. Workups performed in the emergency room and her labs including CBC, CMP, urinalysis were unremarkable with exception trace leukocyte esterase in the urine without any bacteria or wbc's and patient is asymptomatic. In addition her chest x-ray shows no acute cardiopulmonary disease and her head CT shows no acute intracranial process. Patient reportedly lives alone and at baseline is independent. Review of Systems Review of Systems: All systems reviewed & are unremarkable except as noted in HPI and below PMFSH Past Medical History Medical History Anxiety Arthritis Depression Gait disorder Insomnia Lumbar canal stenosis Parkinsons disease Surgical History Surgical History History of tonsillectomy S/P deep brain stimulator placement S/P left knee arthroscopy S/P lumbar laminectomy Family History Family History Mother Hypertension Family history of rheumatoid arthritis Father Family history of lung cancer Sibling Family history of lung cancer Social History Social History Smoking packs per day: 1 Smoking cigarettes per day: 20.0 Smoking status: Former smoker Second hand tobacco smoke exposure: No Alcohol intake: never Substance use: never Substance use type: does not use Do You Feel Safe in your Home?: Yes Lack of Transportation: No Lack of Food: Never True Current Housing: I Have Housing Concerned About Future Housing: YES Difficulty Paying Gas/Electric Bills: No Difficulty Paying for Meds: No Currently Unemployed: No Education: Bachelor's Degree Difficulty w/ Childcare or Family Care: No Gender identity (if verbalized by the patient): Female Spiritual care concerns: No Agree to blood products: Yes Meds Home Medications and Allergies Home Medications Medication Instructions Recorded Confirmed Type bupropion HCl 300 mg 24 hr tablet, 300 mg PO QAM #30 tabs 09/17/19 01/24/24 Rx extended release clonazepam 1 mg tablet 1.5 mg PO QHS 11/23/20 01/24/24 History oxybutynin chloride 10 mg 10 mg PO DAILY 06/20/21 01/24/24 History tablet,extended release 24 hr tizanidine 4 mg tablet (Zanaflex) 4 mg PO HS PRN Muscle Spasm 01/03/23 01/24/24 History gabapentin 600 mg tablet 600 mg PO DAILY 05/26/23 01/24/24 History zolpidem 5 mg tablet 5 mg PO QHS 05/26/23 01/24/24 History diclofenac sodium 75 mg 75 mg PO BID #60 tabs 12/30/23 01/24/24 Rx tablet,delayed release Allergies Allergy/AdvReac Type Severity Reaction Status Date / Time oxycodone Allergy Unknown Unknown Verified 01/23/24 19:07 hydrocodone AdvReac Severe Nausea and Verified 01/23/24 19:07 Vomiting prochlorperazine AdvReac Severe Itching Verified 01/23/24 19:07 Vital Signs Vital Signs - 24 hr 01/23/24 19:02 01/23/24 20:00 01/23/24 19:04 Temperature 98.3 F Pulse Rate 110 H 94 111 H Respiratory Rate 18 16 17 Blood Pressure 134/95 H 132/90 Pulse Oximetry 98 98 99 Oxygen Delivery Room Air 01/23/24 19:05
[2024-01-24 06:00] VITALS: BP 133/84; PULSE 76; RESP 20; TEMP 36.8; O2SAT 100
[2024-01-24 09:00] VITALS: O2SAT 100
[2024-01-24] MEDS: buPROPion HCL XL (24 HR) 150 MG TABCR 300 MG PO (09:04)
[2024-01-24] MEDS: DICLOFENAC SOD 75 MG TABLET.EC PO ×2 (09:04→20:46)
[2024-01-24] MEDS: oxyBUTYnin CHLORIDE XL 5 MG TAB.ER.24 10 MG PO (09:04)
--- NOTE | 2024-01-24 11:42 | PM.IMPN ---
Progress Note: A&P Assessment and Plan (1) Weakness: Code(s): R53.1 - Weakness Status: Acute Assessment and Plan: Possible worsening Parkinson's Disease. Case mgt consulted for rehab placement. PT/OT eval and treatment inpatient. (2) Multiple falls: Code(s): R29.6 - Repeated falls Status: Acute Assessment and Plan: Related to above. Fall precautions and assist with care. (3) Parkinsons disease: Code(s): G20 - Parkinson's disease Status: Chronic Assessment and Plan: See #1 and 2 Pt has deep brain stimulator as she was unable to tolerate Carbidopa/Levodopa. Continue to f/u with Dr. Marie, Neurologist at [place]. (4) Depression: Qualifiers: Depression Type: major depressive disorder Major depression recurrence: single episode Active/Remission status: currently active Major depression episode severity: mild Qualified Code(s): F32.0 - Major depressive disorder, single episode, mild Code(s): F32.9 - Major depressive disorder, single episode, unspecified Status: Chronic Assessment and Plan: continue bupropion. (5) Anxiety: Code(s): F41.9 - Anxiety disorder, unspecified Status: Chronic Assessment and Plan: Continue home medications. Time Spent With Patient Time with patient: 15 - 25 minutes Subjective Date/time seen: 01/24/24 11:42 Interval history: Patient brought in to the ER by family for possible placement due to increased generalized and recurrent falls. Review of Systems Review of Systems: All systems reviewed & are unremarkable except as noted in HPI and below Exam Narrative: CONSTITUTIONAL: Pleasant, generalized weakness working with PT in the room. HEENT: Atraumatic, normocephalic. PERRL, EOMI, moist mucus membranes. NECK: Supple. RESPIRATORY: Clear bilaterally. CARDIAC: RRR, S1, S2. GI: Soft, NT, +ve bowel sounds X4 quadrants. : Deferred SKIN: [place], warm, and moist. No lesions noted. NEURO: Well oriented. CN II-XII grossly intact. No focal deficits. EXTREMITIES: No edema. 2+ pedal and radial pulses. PSYCH: Pleasant mood and affect. Objective Data Vital Signs Vital Signs: Vital Signs - 24 hr 01/23/24 19:02 01/23/24 20:00 01/23/24 19:04 Temperature 98.3 F Pulse Rate 110 H 94 111 H Respiratory Rate 18 16 17 Blood Pressure 134/95 H 132/90 Pulse Oximetry 98 98 99 Oxygen Delivery Room Air 01/23/24 19:05 01/23/24 19:16 01/23/24 19:31 Temperature Pulse Rate 105 H 86 85 Respiratory Rate 14 15 15 Blood Pressure 134/95 H 139/93 H 109/85 Pulse Oximetry 98 97 96 Oxygen Delivery 01/23/24 19:45 01/23/24 19:46 01/23/24 20:00 Temperature Pulse Rate 92 Respiratory Rate 13 Blood Pressure 131/89 Pulse Oximetry 98 99 Oxygen Delivery 01/23/24 20:01 01/23/24 20:16 01/23/24 20:31 Temperature Pulse Rate 94 94 94 Respiratory Rate 15 15 14 Blood Pressure 140/88 133/82 122/89 Pulse Oximetry 99 99 Oxygen Delivery 01/23/24 20:46 01/23/24 21:01 01/23/24 21:02 Temperature Pulse Rate 89 89 91 Respiratory Rate 17 18 18 Blood Pressure 122/84 139/93 H Pulse Oximetry 98 98 Oxygen Delivery 01/23/24 21:15 01/23/24 21:17 01/23/24 21:39 Temperature Pulse Rate 94 97 77 Respiratory Rate 15 22 H Blood Pressure 159/145 H Pulse Oximetry 97 Oxygen Delivery 01/23/24 21:40 01/23/24 21:45 01/23/24 21:46 Temperature Pulse Rate 77 80 80 Respiratory Rate 15 15 16 Blood Pressure 129/85 129/80 Pulse Oximetry 98 97 97 Oxygen Delivery 01/23/24 22:00 01/23/24 22:01 01/23/24 22:02 Temperature Pulse Rate 74 75 74 Respiratory Rate 15 14 13 Blood Pressure 123/75 Pulse Oximetry 98 98 99 Oxygen Delivery 01/23/24 22:15 01/23/24 22:16 01/23/24 22:30 Temperature Pulse Rate 80 81 80 Respiratory Rate 17 14 13 Blood Pressure 135/86 Pulse Oximetry 97 100 99 Oxygen Delivery 01/23/24 22:
[2024-01-24 14:22] VITALS: BP 138/71; PULSE 67; RESP 18; TEMP 36.3; O2SAT 96
[2024-01-24 20:29] VITALS: BP 123/84; PULSE 102; RESP 20; TEMP 36.7; O2SAT 98
[2024-01-24] MEDS: ZOLPIDEM TARTRATE (*CRX) 5 MG TABLET PO (20:46)
[2024-01-24] MEDS: clonazePAM (*CRX) 0.5 MG TABLET 1.5 MG PO (20:46)
[2024-01-25 05:16] LABS: Basophils Absolute Auto 0.1 K/mm3 (0.0-0.1); Basophils Percent Auto 1.2 % (0.2-1.2); Eosinophils Absolute Auto 0.1 K/mm3 (0-0.3); Eosinophils Percent Auto 2.7 % (0-4.4); Hematocrit 36.8 % (37.0-47.0); Immature Granulocyte Absolute 0.01 K/mm3 (0.00-0.031); Immature Granulocyte Percent A 0.2 % (0-0.5); Lymphocytes Absolute Auto 2.13 K/mm3 (0.9-3.2); Lymphocytes Percent Auto 41.6 % (18.3-44.2); Mean Corpuscular HGB Conc 32.6 g/dl (32-36); Mean Corpuscular Hemoglobin 29.4 pg (26-34); Mean Corpuscular Volume 90.2 fl (80-100); Mean Platelet Volume 9.5 fl (7.4-10.4); Monocytes Absolute Auto 0.5 K/mm3 (0.1-0.6); Monocytes Percent Auto 9.8 % (2.6-8.5); Neutrophils Absolute Auto 2.3 K/mm3 (1.3-6.7); Neutrophils Percent Auto 44.5 % (45.5-73.1); Platelet Count Result 231 k/mm3 (150-375); Red Blood Count 4.08 M/mm3 (4.2-5.4); Red Cell Distribution Width 12.8 % (11.5-14.5); White Blood Count 5.1 K/mm3 (4.5-10.0)
[2024-01-25 05:34] LABS: Alanine Aminotransferase 8 U/L (6-35); Albumin Level 3.9 g/dL (3.5-5.1); Alkaline Phosphatase 94 U/L (38-126); Anion Gap 7 mmol/L (4-12); Aspartate Amino Transferase 19 U/L (14-36); Bilirubin,Total 0.4 mg/dL (0.2-1.3); Blood Urea Nitrogen 24 mg/dL (7-17); Calcium 9.3 mg/dL (8.4-10.2); Carbon Dioxide 29 mmol/L (22-30); Chloride 103 mmol/L (98-107); Estimated CRCL calculation 63 ml/min; Estimated Glomerular Filt Rate > 60; Glucose 93 mg/dL (65-110); Magnesium 2.2 mg/dL (1.6-2.3); Potassium 3.8 mmol/L (3.4-5.0); Sodium 139 mmol/L (137-145)
[2024-01-25 06:00] VITALS: BP 125/84; PULSE 65; RESP 18; TEMP 36.4; O2SAT 99
[2024-01-25] MEDS: DICLOFENAC SOD 75 MG TABLET.EC PO ×2 (08:45→21:07)
[2024-01-25] MEDS: oxyBUTYnin CHLORIDE XL 5 MG TAB.ER.24 10 MG PO (08:45)
[2024-01-25] MEDS: buPROPion HCL XL (24 HR) 150 MG TABCR 300 MG PO (08:46)
--- NOTE | 2024-01-25 12:18 | PM.IMPN ---
Progress Note: A&P Assessment and Plan (1) Weakness: Code(s): R53.1 - Weakness Status: Acute Assessment and Plan: Possible worsening Parkinson's Disease. Case mgt assisting with rehab placement. Continue PT/OT eval and treatment inpatient. (2) Multiple falls: Code(s): R29.6 - Repeated falls Status: Acute Assessment and Plan: Related to above. Fall precautions and assist with care. (3) Parkinsons disease: Code(s): G20 - Parkinson's disease Status: Chronic Assessment and Plan: See #1 and 2 Pt has deep brain stimulator as she was unable to tolerate Carbidopa/Levodopa. Continue to f/u with Dr. Marie, Neurologist at [place]. (4) Depression: Qualifiers: Depression Type: major depressive disorder Major depression recurrence: single episode Active/Remission status: currently active Major depression episode severity: mild Qualified Code(s): F32.0 - Major depressive disorder, single episode, mild Code(s): F32.9 - Major depressive disorder, single episode, unspecified Status: Chronic Assessment and Plan: continue bupropion. (5) Anxiety: Code(s): F41.9 - Anxiety disorder, unspecified Status: Chronic Assessment and Plan: Continue home medications. (6) Overactive bladder: Code(s): N32.81 - Overactive bladder Status: Acute Assessment and Plan: - Continue oxybutynin. Time Spent With Patient Time with patient: 15 - 25 minutes Subjective Date/time seen: 01/25/24 11:18 Interval history: Patient brought in to the ER by family for possible placement due to increased generalized and recurrent falls. Review of Systems Review of Systems: All systems reviewed & are unremarkable except as noted in HPI and below Exam Narrative: CONSTITUTIONAL: Pleasant, generalized weakness, currently on bedrest. HEENT: Atraumatic, normocephalic. PERRL, EOMI, moist mucus membranes. NECK: Supple. RESPIRATORY: Clear bilaterally. CARDIAC: RRR, S1, S2. GI: Soft, NT, +ve bowel sounds X4 quadrants. : Deferred SKIN: [place], warm, and moist. No lesions noted. NEURO: Well oriented. CN II-XII grossly intact. No focal deficits. EXTREMITIES: No edema. 2+ pedal and radial pulses. PSYCH: Pleasant mood and affect. Objective Data Vital Signs Vital Signs: Vital Signs - 24 hr 01/24/24 14:22 01/24/24 20:29 01/25/24 06:00 Temperature 97.3 F L 98.1 F 97.5 F L Pulse Rate 67 102 H 65 Respiratory Rate 18 20 18 Blood Pressure 138/71 123/84 125/84 Pulse Oximetry 96 98 99 Oxygen Delivery 01/25/24 08:45 Temperature Pulse Rate Respiratory Rate Blood Pressure Pulse Oximetry Oxygen Delivery Room Air Intake/Output Intake/Output: Intake & Output 01/22/24 01/23/24 01/24/24 01/25/24 23:59 23:59 23:59 23:59 Intake Total 1070 440 Balance 1070 440 Meds/Results Medications: Active Medications Generic Name Dose Route Start Last Admin Trade Name Freq PRN Reason Stop Dose Admin Bupropion HCl 300 mg 01/24/24 09:00 01/25/24 08:46 Bupropion Hcl Xl (24 Hr) 150 Mg Tabcr PO 300 mg QAM DEEJAY Administration Clonazepam 1.5 mg 01/24/24 21:00 01/24/24 20:46 Clonazepam (*Crx) 0.5 Mg Tablet PO 1.5 mg QHS DEEJAY Administration Diclofenac Sodium 75 mg 01/24/24 09:00 01/25/24 08:45 Diclofenac Sod 75 Mg Tablet.Ec PO 75 mg Q12HR DEEJAY Administration Gabapentin 600 mg 01/24/24 09:00 Gabapentin 300 Mg Capsule PO DAILY PRN restless legs Ondansetron HCl 4 mg 01/24/24 00:05 Ondansetron Inj 4 Mg/2 Ml Vial IV PUSH Q4H PRN Nausea Oxybutynin Chloride 10 mg 01/24/24 09:00 01/25/24 08:45 Oxybutynin Chloride Xl 5 Mg Tab.Er.24 PO 10 mg DAILY DEEJAY Administration Tizanidine HCl 4 mg 01/24/24 02:14 Tizanidine Hcl 4 Mg Tablet PO HS PRN Muscle Spasm Zolpidem Tartrate 5 mg 01/24/24 21:00 01/24/24 20:46 Zolpidem Tartrate (*C
[2024-01-25 14:40] VITALS: BP 122/73; PULSE 84; RESP 16; TEMP 36.6; O2SAT 100
[2024-01-25] MEDS: ZOLPIDEM TARTRATE (*CRX) 5 MG TABLET PO (21:07)
[2024-01-25] MEDS: clonazePAM (*CRX) 0.5 MG TABLET 1.5 MG PO (21:07)
[2024-01-26 06:00] VITALS: BP 102/64; PULSE 64; RESP 20; TEMP 36.7; O2SAT 98
[2024-01-26] MEDS: DICLOFENAC SOD 75 MG TABLET.EC PO ×2 (09:59→21:15)
[2024-01-26] MEDS: buPROPion HCL XL (24 HR) 150 MG TABCR 300 MG PO (09:59)
[2024-01-26] MEDS: oxyBUTYnin CHLORIDE XL 5 MG TAB.ER.24 10 MG PO (10:00)
[2024-01-26 14:00] VITALS: BP 108/69; PULSE 80; RESP 21; TEMP 36.7; O2SAT 98
--- NOTE | 2024-01-26 14:53 | PM.IMPN ---
Progress Note: A&P Assessment and Plan (1) Weakness: Code(s): R53.1 - Weakness Status: Acute Assessment and Plan: Possible worsening Parkinson's Disease vs other. Case mgt assisting with rehab placement. Continue PT/OT eval and treatment inpatient. (2) Multiple falls: Code(s): R29.6 - Repeated falls Status: Acute Assessment and Plan: Related to above. Fall precautions and assist with care. (3) Parkinsons disease: Code(s): G20 - Parkinson's disease Status: Chronic Assessment and Plan: See #1 and 2 Pt has deep brain stimulator as she was unable to tolerate Carbidopa/Levodopa. Continue to f/u with Dr. Marie, Neurologist at [place]. (4) Depression: Qualifiers: Depression Type: major depressive disorder Major depression recurrence: single episode Active/Remission status: currently active Major depression episode severity: mild Qualified Code(s): F32.0 - Major depressive disorder, single episode, mild Code(s): F32.9 - Major depressive disorder, single episode, unspecified Status: Chronic Assessment and Plan: continue bupropion. (5) Anxiety: Code(s): F41.9 - Anxiety disorder, unspecified Status: Chronic Assessment and Plan: Continue home medications. (6) Overactive bladder: Code(s): N32.81 - Overactive bladder Status: Acute Assessment and Plan: - Continue oxybutynin. Time Spent With Patient Time with patient: 15 - 25 minutes Subjective Date/time seen: 01/26/24 14:53 Interval history: Patient brought in to the ER by family for possible placement due to increased generalized and recurrent falls. Review of Systems Review of Systems: All systems reviewed & are unremarkable except as noted in HPI and below Exam Narrative: CONSTITUTIONAL: Pleasant, generalized weakness, currently on bedrest. HEENT: Atraumatic, normocephalic. PERRL, EOMI, moist mucus membranes. NECK: Supple. RESPIRATORY: Clear bilaterally. CARDIAC: RRR, S1, S2. GI: Soft, NT, +ve bowel sounds X4 quadrants. : Deferred SKIN: [place], warm, and moist. No lesions noted. NEURO: Well oriented. CN II-XII grossly intact. No focal deficits. EXTREMITIES: No edema. 2+ pedal and radial pulses. PSYCH: Pleasant mood and affect. Objective Data Vital Signs Vital Signs: Vital Signs - 24 hr 01/25/24 20:00 01/26/24 06:00 Temperature 98.1 F Pulse Rate 64 Respiratory Rate 20 Blood Pressure 102/64 Pulse Oximetry 98 Oxygen Delivery Room Air Intake/Output Intake/Output: Intake & Output 01/23/24 01/24/24 01/25/24 01/26/24 23:59 23:59 23:59 23:59 Intake Total 1070 1170 840 Balance 1070 1170 840 Meds/Results Medications: Active Medications Generic Name Dose Route Start Last Admin Trade Name Freq PRN Reason Stop Dose Admin Bupropion HCl 300 mg 01/24/24 09:00 01/26/24 09:59 Bupropion Hcl Xl (24 Hr) 150 Mg Tabcr PO 300 mg QAM DEEJAY Administration Clonazepam 1.5 mg 01/24/24 21:00 01/25/24 21:07 Clonazepam (*Crx) 0.5 Mg Tablet PO 1.5 mg QHS DEEJAY Administration Diclofenac Sodium 75 mg 01/24/24 09:00 01/26/24 09:59 Diclofenac Sod 75 Mg Tablet.Ec PO 75 mg Q12HR DEEJAY Administration Gabapentin 600 mg 01/24/24 09:00 Gabapentin 300 Mg Capsule PO DAILY PRN restless legs Ondansetron HCl 4 mg 01/24/24 00:05 Ondansetron Inj 4 Mg/2 Ml Vial IV PUSH Q4H PRN Nausea Oxybutynin Chloride 10 mg 01/24/24 09:00 01/26/24 10:00 Oxybutynin Chloride Xl 5 Mg Tab.Er.24 PO 10 mg DAILY DEEJAY Administration Tizanidine HCl 4 mg 01/24/24 02:14 Tizanidine Hcl 4 Mg Tablet PO HS PRN Muscle Spasm Zolpidem Tartrate 5 mg 01/24/24 21:00 01/25/24 21:07 Zolpidem Tartrate (*Crx) 5 Mg Tablet PO 5 mg QHS DEEJAY Administration Radiology Results: ITS Impressions Chest X-Ray 01/23/24 20:53 IMPRESSION: 1. No acute cardiopulmon
[2024-01-26] MEDS: polyethylene glycoL 3350 17 GM POWD.PACK PO (16:52)
[2024-01-26 19:50] VITALS: BP 132/83; PULSE 77; RESP 17; TEMP 36.3; O2SAT 95
[2024-01-26] MEDS: clonazePAM (*CRX) 0.5 MG TABLET 1.5 MG PO (21:15)
[2024-01-26] MEDS: ZOLPIDEM TARTRATE (*CRX) 5 MG TABLET PO (21:15)
[2024-01-27 04:46] VITALS: BP 103/56; PULSE 76; RESP 18; TEMP 36.6; O2SAT 95
--- NOTE | 2024-01-27 07:28 | PM.IMPN ---
Progress Note: A&P Assessment and Plan (1) Weakness: Code(s): R53.1 - Weakness Status: Acute Assessment and Plan: Possible worsening Parkinson's Disease vs other. Case mgt assisting with rehab placement. Continue PT/OT eval and treatment inpatient. (2) Multiple falls: Code(s): R29.6 - Repeated falls Status: Acute Assessment and Plan: Related to above. Fall precautions and assist with care. (3) Parkinsons disease: Code(s): G20 - Parkinson's disease Status: Chronic Assessment and Plan: See #1 and 2 Pt has deep brain stimulator as she was unable to tolerate Carbidopa/Levodopa. Continue to f/u with Dr. Marie, Neurologist at [place]. (4) Depression: Qualifiers: Depression Type: major depressive disorder Major depression recurrence: single episode Active/Remission status: currently active Major depression episode severity: mild Qualified Code(s): F32.0 - Major depressive disorder, single episode, mild Code(s): F32.9 - Major depressive disorder, single episode, unspecified Status: Chronic Assessment and Plan: continue bupropion. (5) Anxiety: Code(s): F41.9 - Anxiety disorder, unspecified Status: Chronic Assessment and Plan: Continue home medications. (6) Overactive bladder: Code(s): N32.81 - Overactive bladder Status: Acute Assessment and Plan: - Continue oxybutynin. Subjective Date/time seen: 01/27/24 07:28 Interval history: Patient brought in to the ER by family for possible placement due to increased generalized and recurrent falls. Review of Systems Review of Systems: All systems reviewed & are unremarkable except as noted in HPI and below Exam Narrative: CONSTITUTIONAL: Pleasant, generalized weakness, currently on bedrest. HEENT: Atraumatic, normocephalic. PERRL, EOMI, moist mucus membranes. NECK: Supple. RESPIRATORY: Clear bilaterally. CARDIAC: RRR, S1, S2. GI: Soft, NT, +ve bowel sounds X4 quadrants. : Deferred SKIN: [place], warm, and moist. No lesions noted. NEURO: Well oriented. CN II-XII grossly intact. No focal deficits. EXTREMITIES: No edema. 2+ pedal and radial pulses. PSYCH: Pleasant mood and affect. Objective Data Vital Signs Vital Signs: Vital Signs - 24 hr 01/26/24 14:00 01/26/24 19:50 01/26/24 20:00 Temperature 98.1 F 97.4 F L Pulse Rate 80 77 Respiratory Rate 21 H 17 Blood Pressure 108/69 132/83 Pulse Oximetry 98 95 Oxygen Delivery Room Air 01/27/24 04:46 Temperature 97.8 F Pulse Rate 76 Respiratory Rate 18 Blood Pressure 103/56 L Pulse Oximetry 95 Oxygen Delivery Intake/Output Intake/Output: Intake & Output 01/24/24 01/25/24 01/26/24 01/27/24 23:59 23:59 23:59 23:59 Intake Total 1070 1170 1230 150 Balance 1070 1170 1230 150 Meds/Results Medications: Active Medications Generic Name Dose Route Start Last Admin Trade Name Freq PRN Reason Stop Dose Admin Bupropion HCl 300 mg 01/24/24 09:00 01/26/24 09:59 Bupropion Hcl Xl (24 Hr) 150 Mg Tabcr PO 300 mg QAM DEEJAY Administration Clonazepam 1.5 mg 01/24/24 21:00 01/26/24 21:15 Clonazepam (*Crx) 0.5 Mg Tablet PO 1.5 mg QHS DEEJAY Administration Diclofenac Sodium 75 mg 01/24/24 09:00 01/26/24 21:15 Diclofenac Sod 75 Mg Tablet.Ec PO 75 mg Q12HR DEEJAY Administration Gabapentin 600 mg 01/24/24 09:00 Gabapentin 300 Mg Capsule PO DAILY PRN restless legs Ondansetron HCl 4 mg 01/24/24 00:05 Ondansetron Inj 4 Mg/2 Ml Vial IV PUSH Q4H PRN Nausea Oxybutynin Chloride 10 mg 01/24/24 09:00 01/26/24 10:00 Oxybutynin Chloride Xl 5 Mg Tab.Er.24 PO 10 mg DAILY DEEJAY Administration Polyethylene Glycol 17 gm 01/26/24 16:15 01/26/24 16:52 Polyethylene Glycol 3350 17 Gm Powd.Pack PO 17 gm QAM PRN Administration Constipation Tizanidine HCl 4 mg 01/24/24 02:14 Tizanidine Hcl 4 Mg
[2024-01-27] MEDS: polyethylene glycoL 3350 17 GM POWD.PACK PO (08:13)
[2024-01-27] MEDS: oxyBUTYnin CHLORIDE XL 5 MG TAB.ER.24 10 MG PO (08:14)
[2024-01-27] MEDS: DICLOFENAC SOD 75 MG TABLET.EC PO (08:14)
[2024-01-27] MEDS: buPROPion HCL XL (24 HR) 150 MG TABCR 300 MG PO (08:14)
--- NOTE | 2024-01-27 14:41 | PM.DS ---
DS: Admitting Diagnosis Discharge Date 01/27/24 Admitting Diagnosis Weakness, Falls DS: Discharge Diagnosis Discharge Diagnosis (1) Weakness: Code(s): R53.1 - Weakness Status: Acute (2) Multiple falls: Code(s): R29.6 - Repeated falls Status: Acute (3) Physical deconditioning: Code(s): R53.81 - Other malaise Status: Acute Plan Follow up with PCP and Neurology. Home health to follow DS: Summary Hospital Course Reason for hospitalization: Weakness and falls Hospital Course: Shilpi Benites was admitted for treatment of weakness, concern for possible worsening parkinson?s disease and deconditioning. Therapy recommended SNF, but was improving and ultimately decided to go home, declined SNF. ?Went home with home health. Weakness, Falls: possible worsening Parkinson's Disease vs deconditioning Parkinsons disease, chronic: ? Pt has deep brain stimulator as she was unable to tolerate Carbidopa/Levodopa. ? She will follow up with Dr. Marie, Neurologist at [place]. Depression & Anxiety: stable. Continued continue bupropion Overactive bladder:?Continued oxybutynin. Status at Discharge Cognitive/behavioral status at discharge: Alert & Oriented x4 Time Spent with Patient Time attestation: Total time spent providing and/or coordinating discharge services: Exam Narrative: CONSTITUTIONAL: Pleasant, female patient sitting on the side of the bed in no acute distress. HEENT: Head is atraumatic and normocephalic. Ears and nose are symmetric about face. The patient has patent posterior oropharynx without any erythema, edema or exudate. Moist mucous membranes present. EYES: PERRLA, EOMs intact NECK: Full AROM in all directions without any LN, JVD and moves in a supple manner. RESPIRATORY: CTAB in all salmon. CARDIAC: RRR, S1 and S2 present without S3, S4, m,r,g,h, displacement of PMI or peripheral edema. GI: Soft, NT, BS present in all four quadrants without any guarding or rebound. : Deferred SKIN: [place], warm, without any rash, lesion or bruising. NEURO: Grossly normal without any focal deficits. No tremor appreciated at this time. She has generalized weakness present. EXTREMITIES: Full and equally MAEW without deficits, but does have some generalized weakness. PSYCH: Pleasant mood and affect. Discharge Plan Discharge Attending physician on discharge: Lucy Sherman Consulting providers: Casey Pascual; Wanda Pugh; Sanjeev Blanco; Vincent Cifuentes Discharging Clinician: Lucy Sherman Anticipated Discharge Date/Time: 01/27/24 14:39 Patient Disposition: Home Health Service Activity: september shower Diet: regular Discharge Instructions: Per Care Coordination: [facility] [phone] has been arranged for physical and occupational therapy. They will call you regarding your first visit. Increase activity, more frequent activity Patient Instructions: Antibiotic Form, Fall Prevention for Older Adults (DC) Stand Alone Forms: General Discharge Information Follow-up/Referrals: Ani Reynolds MD [Primary Care Provider] - Discharge Medications: Continued gabapentin 600 mg tablet 600 mg PO DAILY zolpidem 5 mg tablet 5 mg PO QHS clonazepam 1 mg tablet 1.5 mg PO QHS Rx Instructions: administer 30 minutes before bedtime oxybutynin chloride 10 mg tablet extended release 24hr 10 mg PO DAILY bupropion HCl 300 mg Tablet Extended Release 24 Hr 300 mg PO QAM Qty: 30 0RF tizanidine [Zanaflex] 4 mg tablet 4 mg PO HS PRN (Reason: Muscle Spasm) No Action diclofenac sodium 75 mg tablet,delayed release (DR/EC) 75 mg PO BID Qty: 60 0RF Date of admission: 01/24/24 00:05 Primary Care Provider: Ani Reynolds Admitting Provider: Snajeev Melendez Attending physician on admission: Lucy Sherman Condition: Stable Quality VTE Prophylaxis VTE prophylaxis: mechanical ordered
== END 2024-01-27 15:46 | disposition home health service (06) ==
LOC: ANHED 20:34 → ANH3MED 01-24 00:32
PROVIDERS: Emergency Medicine; Nurse Practitioner Adult Health; Admitting Provider Internal Medicine; Emergency Provider Physician Assistant; PCP Family Medicine; Visit Provider Nurse Practitioner Acute Care
DX: R53.1 Weakness (principal); R29.6 Repeated falls; R26.9 Unspecified abnormalities of gait and mobility; G20.A1 Parkinson's disease without dyskinesia, without mention of fluctuations; N32.81 Overactive bladder; F41.9 Anxiety disorder, unspecified; F32.0 Major depressive disorder, single episode, mild; Z87.891 Personal history of nicotine dependence
CPT/HCPCS: 36415; 70450; 71045; 80053; 81001; 83735; 85025; 97110; 97116; 97161; 97165; 97530; 97535; 99285; A9270; G0378

== ENCOUNTER 2024-03-09 23:50 | Emergency (ER) | payer OTHER, MEDICARE, SELFPAY ==
--- NOTE | ~2024-03-09 | CT_ITS ---
Noncontrast CT scan of the cervical spine Technique: Multiple contiguous axial [address] images of the cervical spine were obtained and rec onstructed in 2D sagittal and coronal planes on the acquisition scanner. Dose reduction technique was used on this scan by utilizing automated exposure control, adjustment of the mA and/or kV according to patient size. The dose-length product (DLP) was 182.18 mGy-cm. Clinical History: Pain Findings: No acute fracture. There is reversal normal cervical lordosis. There is minimal grade 1 ant erolisthesis of C4 over C5. There is moderate to advanced degenerative disc narrowing at C6-C7. There is advanced left facet arthropathy at C3-C4, mild left neural foraminal narrowing at this level. The re is left facet arthropathy at C4-C5, with left neural foraminal narrowing at this level. No prevert ebral soft tissue swelling. Impression: No acute fracture. Minimal grade 1 anterolisthesis of C4-C5. Mild degenerative change and reversal of the normal cervical lordosis, as detailed above. Reviewed, dictated and finalized at [facility]. Impression: No acute fracture. Minimal grade 1 anterolisthesis of C4-C5. Mild degenerative change and reversal of the normal cervical lordosis, as detai led above.
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
[2024-03-09 23:51] VITALS: PULSE 111; RESP 19; TEMP 36.7; O2SAT 98
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
--- NOTE | 2024-03-10 00:05 | ECG_ITS ---
Test Date: 2024-03-10 00:26:54 Measurements Intervals Jay Rate: 98 P: 0 MS: 0 QRS: 0 QRSD: 0 T: 198 QT: 207 QTc: 264 Interpretive Statements UNINTERPRETABLE ECG DUE TO SEVERE BASELINE ARTIFACT No previous ECG available for comparison Electronically Signed On 03-10-2024 10:20:21 CDT by Tra Joya M.D.
[2024-03-10 02:28] VITALS: BP 139/69; PULSE 82; RESP 16; O2SAT 98
== END 2024-03-10 02:30 | disposition home or self-care (01) ==
PROVIDERS: Emergency Provider Registered Nurse; PCP Family Medicine
DX: S39.012A Strain of muscle, fascia and tendon of lower back, initial encounter (principal); G20.A1 Parkinson's disease without dyskinesia, without mention of fluctuations; M19.90 Unspecified osteoarthritis, unspecified site; F41.9 Anxiety disorder, unspecified; F32.A Depression, unspecified; Z96.82 Presence of neurostimulator; M47.816 Spondylosis without myelopathy or radiculopathy, lumbar region; V47.0XXA Car driver injured in collision with fixed or stationary object in nontraffic accident, initial encounter
CPT/HCPCS: 72125; 72128; 72131; 93005; 99284

== ENCOUNTER 2024-10-06 14:30 | Outpatient (CLI) | payer MEDICARE, MEDICAID, SELFPAY ==
--- NOTE | ~2024-10-06 | MM_ITS ---
EXAMINATION: MM screening stephanie BI w christy HISTORY: Screening TECHNIQUE: Craniocaudal and mediolateral oblique 3-D tomosynthesis images were obtained and synthetic 2-D images were generated. CAD analysis was submitted and interpreted. COMPARISON: Comparison to multiple prior studies sequentially, with oldest reviewed study dated 02/23. BREAST PARENCHYMAL COMPOSITION: Not dense: There are scattered areas of fibroglandular density. FINDINGS: There is no evidence of suspicious mass, calcification, or architectural distortion to sugg est malignancy in either breast. There has been no suspicious interval change. IMPRESSION: 1. No mammographic evidence of malignancy. 2. Recommend routine screening mammography in one year. BI-RADS Category 1: Negative Reviewed, dictated and finalized at location A.
--- OUTSIDE RECORDS SUMMARY | 2024-10-06 14:34 | XMS_ITS | Encounter Summary ---
Author Organization [facility] Address [address] [place] [address] Phone Care Team Providers Care Traffic Checker Name Role Phone Ani Reynolds MD Primary Care Provider [phone] Encounter Details Date Type Department Care Team (Late st Contact Info) Description 05/02/2024 Telephone [facility] [address] [place] [address] Cate Mayes, PT [place] Social History Tobacco Use Types Packs/Day Years Used Date Smoking Tobacco: Never Assessed Comments Unknown Sex and Gender Information Value Date Recorded Sex Assigned at Not on file Legal Sex Female 11:18 PM CDT Gender Identity Not on file Sexual Orientation Not on file documented as of this encounter Miscellaneous Notes * Telephone Encounter - Cate Mayes, PT - 05/02/2024 3:50 PM CST This telephone encounter was an error. ER SWEEP documented in this encounter Plan of Treatment Not on file documented as of this encounter Visit Diagnoses Not on filedocumented in this encounter Care Teams Traffic Checker Relationship Specialty Start Date End Date Ani Reynolds MD [address] [place] [address] PCP - General Family Medicine 06/06/21 documented as of this encounter
--- OUTSIDE RECORDS SUMMARY | 2024-10-06 14:34 | XMS_ITS | Encounter Summary ---
Author Organization [facility] Address [address] [place] [address] Phone Care Team Providers Care Kitchen Utility Associate Name Role Phone Ani Reynolds MD Primary Care Provider [phone] Reason for Referral * PT/OT/ST (Routine) - Closed Specialty Diagnoses / Procedures Referred By Contac t Referred To Contact Physical Therapy Diagnoses Parkinson's disease, unspecified whether dyskinesia present, unspecified whether manifestations fluctuate (HCC) Zoe Han APRN, IT SERVICE MANAGER [address] [place] [id number] Phone: tel: fax: Referral ID Status Reason Start Date Expiration Date Visits Re quested Visits Authorized [id number] Closed 02/24/2024 50 1 Scheduling Instructions Encounter Details Date Type Department Care Team (Latest Contact Info) Description 02/24/2024 Transcribe Orders [facility] [address] [place] [address] Zoe Han APRN, IT SERVICE MANAGER [address] [place] [id number] Parkinson's disease, unspecified whether dyskinesia present, unspecified whether manifestations fluctuate (HCC) (Primary Dx) Social History Tobacco Use Types Packs/Day Years Used Date Smoking Tobacco: Never Assessed Comments Unknown Sex and Gender Information Value Date Recorded Sex Assigned at Not on file Legal Sex Female 11:18 PM CDT Gender Identity Not on file Sexual Orientation Not on file documented as of this encounter Plan of Treatment Scheduled Referrals Name Type Priority Associated Diagnoses Orde r Schedule PHYSICAL THERAPY REFERRAL Outpatient Referral Routine Parkinson's Disease, Unspecified Whether Dyskinesia Present, Unspecified Whether Manifestations Fluctuate (Hcc) Expected: 02/24/2024, Expires: 02/23/2025 documented as of this encounter Visit Diagnoses Diagnosis Parkinson's disease, unspecified whether dyskinesia present, unspecified whether manifestations fluctuate (HCC)- Primary documented in this encounter Care Teams Kitchen Utility Associate Relationship Specialty Start Date End Date Ani Reynolds MD [address] [place] [address] PCP - General Family Medicine 06/06/21 documented as of this encounter
--- OUTSIDE RECORDS SUMMARY | 2024-10-06 14:34 | XMS_ITS | Clinical Summary ---
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 Role Phone Bridgette Marie MD Unavailable Ani Reynolds MD Primary Care Provider [phone] Allergies Active Allergy Reactions Criticality Noted Date Comments Hydrocodone Nausea And Vomiting,Vomiting Low 04/12/2024 vomiting Hydrocodone-Acetaminophen Vomiting Low Oxycodone Vomiting,Unknown Low 04/12/2024 Reaction: VOMITING, Oxycodone-Acetaminophen Vomiting Low 08/14/2011 Prochlorperazine Itching,Rash Medium 04/12/2024 Pt is unsure about this allergy Medications famotidine (PEPCID) 20 mg tablet Take 1 tablet (20 mg total) by mouth 2 (two) times a day Active acetaminophen 500 mg capsuleIndicati ons:Pain Take 2 capsules (1,000 mg total) by mouth every 6 (six) hours as needed for pain 09/30/2019 Active polyethylene glycol (MIRALAX) 17 gram packet Take 1 packet (17 g total) by mouth daily 10/01/[address] (VOLTAREN) 75 mg EC tablet Take 1 tablet (75 mg total) by mouth 2 (two) times a day Pt takes 1 tab daily Active cholecalciferol (VITAMIN D-3) 2000 unit capsule 1 capsule (2,000 Units total) Active tiZANidine (ZANAFLEX) 4 mg tablet TAKE 1 TABLET(4 MG) BY MOUTH EVERY NIGHT 90 tablet 3 01/29/2024 Active oxyBUTYnin XL (DITROPAN-XL) 10 mg 24 hr tablet TAKE 1 TABLET(10 MG) BY MOUTH DAILY 90 tablet 3 02/22/2024 Active carbidopa-levod opa 23.75-95 mg capsule, extended release Take 1 capsule by mouth 3 (three) times a day 90 capsule 3 05/16/2024 Active clonazePAM (KlonoPIN) 1 mg tablet TAKE 1 AND 1/2 TABLETS(1.5 MG) BY MOUTH EVERY NIGHT 135 tablet 1 06/20/2024 Active buPROPion XL (WELLBUTRIN XL) 300 mg 24 hr tablet TAKE 1 TABLET(300 MG) BY MOUTH DAILY 90 tablet 3 07/06/2024 Active zolpidem (AMBIEN) 5 mg tablet TAKE 1 TABLET(5 MG) BY MOUTH EVERY NIGHT 90 tablet 3 07/06/2024 Active gabapentin (NEURONTIN) 600 mg tablet TAKE 1 TABLET(600 MG) BY MOUTH EVERY NIGHT 30 tablet 5 08/05/2024 Active Active Problems Problem Noted Date Diagnosed Date Severe malnutrition 02/25/2022 Altered mental status, unspe cified altered mental status type 02/24/2022 Other constipation 04/08/2019 Parkinson disease 11/30/2017 Assessment & Plan (09/12/2024 10:01 PM CDT): She had progression to stage 3 parkinsonism with moderate bradykinesia complicated by festinating gait and falling. She was previously unable to tolerate levodopa due to nausea and vomiting but found that Rytary helped. She had daytime sedation and we will taper tizanidine. She REM behavior with sleep walking for which she took clonazepam. Ambien may actually make this worse and I recommended she stop this in 1 month. I would consider adding mirtazapine or increasing clonazepam should sleep quality worsen as she had significant depression not quite well managed with Wellbutrin. Plan: Restart Rytary - check with pharmacy on coverage Labs today DBS programming Today Refer to psychiatry Talk with PMD about psychology and weight loss Assessment & Plan (02/16/2023 3:46 PM CDT): She had progression to stage 3 parkinsonism with moderate bradykinesia complicated by festinating gait and falling. She was previously unable to tolerate levodopa due to nausea and vomiting but found that Rytary helped. She had daytime sedation and we will taper tizanidine. She REM behavior with sleep walking for which she took clonazepam. Ambien may actually make this worse and I recommended she stop this in 1 month. I would consider adding mirtazapine or increasing clonazepam should sleep quality worsen as she had significant depression not quite well managed with Wellbutrin. She needs PT. She is handicapped and need a handicapped placard for parking. Assessment & Plan (02/13/2021 10:13 AM CDT): She had progression to stage 3 parkinsonism with moderate bradykinesia complicated by festinating gait and falling. She was previously unable to tolerate levodopa due to nausea and vomiting but wanted to retry we will titrate up to 1 tab TID over the next 2 weeks. She had daytime sedation and we will taper tizanidine. She REM behavior with sleep walking for which she took clonazepam. Ambien may actually make this worse and I recommended she stop this in 1 month. I would consider adding mirtazapine or increasing clonazepam should sleep quality worsen as she had significant depression not quite well managed with Wellbutrin. She needs PT. She is handicapped and need a handicapped placard for parking. Assessment & Plan (01/11/2020 10:43 AM CDT): Overall, her PD had progressed. She was bothered by left sided symptoms. Her IPGs were in the early stages of depletion. Unfortunately the Freeman IPGs only lasted about 15 months and this was not an increase over her Medtronic IPGs. At this time the best option for her is the rechargeable Medtronic Activa RC as it will reduce her need for surgeries. She had a reaction to anesthesia with her back surgery and had psychosis. We should limit her exposure to anesthesia. She had urinary incontinence and given the history of psychosis I would not increase oxybutynin further. Instead I recommended she use Mybertriq. She had REM behavior disorders and vivid dreaming. We will increase the clonazepam at bedtime. She was unable to take levodopa due to nausea. She had not tried domperidone yet. I suggested we start domperidone 10 mg TID for a week, then start a slow levodopa titration. Should she have vomiting again we could consider daytime clonazepam. 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 She is only taking very low dose levodopa bid and she does this because she feels it helps her bladder urgency not for motor symptoms. She will remain on once daily baclofen and tizanidine for her dystonia. She is no longer on gabapentin or amantadine. Higher doses of levodopa make her sick. She takes clonazepam for RBD and insomnia and we will leave that as is. The bigger issue is that she is pretty severely depressed and also anxious (but no suicidal thoughts or panic attacks). She notes fluttering in her chest and we will order a 12-lead EKG though this is most likely related to her anxiety. She is on 300 mg of bupropion XL and while that has worked to some degree, it hasn't helped enough. She would like to retry paroxetine as she felt that helped for a long time and we will start a low dose but rapid escalation from 10 to 20 mg. If in 4-6 weeks, that has not helped or caused side effects, we will increase to 40 mg and if no response, will switch to duloxetine. She has some constipation and should try Miralax. Since oxybutynin is helping her OAB without causing hallucinations or confusion, she may continue that. Plan: 1. Continue very small bid dose of levodopa. 2. Same baclofen, same tizanidine, same clonazepam, same bupropion. 3. Start paroxetine, report in 4-6 weeks or sooner if any side effects or thoughts of suicide. 4. Continue exercise. 5. Try Miralax for constipation. 6. 12-lead EKG, rx given. She will call in and have DBS nurses talk her through how to turn off DBS to prevent artifact. Assessment & Plan (11/10/2018 11:12 AM CDT): She had stage 2.5 IPD characterized by bradykinesia and mild rigidity and was improved by DBS for 20 years now. She had a setback with the replacement of her IPGs and self-discontinuing most of her medications. She is doing better after multiple adjustments but her depression and anxiety remain problematic. Plan: 1. She will attempt to stop using the levodopa now that her DBS has been optimized due to her unintentional weight loss. She knows she can use it PRN for her dystonias. 2. She is amenable to restarting an antidepressant but would like to try bupropion as opposed to paxil (she reports she did very well on it in the past). Will start 150mg XR and can increase to 300mg if needed. 3. We encouraged regular use of her nightly clonazepam to prevent injuring herself due to her RBD. 4. We will monitor her urinary frequency for now given that she reports it responding to her DBS adjustments, though this is somewhat odd for PD. If it does not improve with optimization, will consider referral to urology. 5. She will return for further programming in 1 month and in [address] Marie. S/P deep brain stimulator placement 11/30/2017 Assessment & Plan (05/18/2024 5:28 PM BAKER HEAD): Ms. Benites presented for further programming after follow up with Dr Marie. She is s/p bilateral STN DBS surgery (1998). She was present with her niece. Dr Marie recommended for her to the restart Rytary based on insurance coverage. We interrogated her dbs and opted not to make any changes to her settings. Reviewed strict fall precautions. Recommendations Keep DBS on at all times Medications and other recommendations per Dr Marie today Strict fall and swallow precautions Exercise as tolerated Return as scheduled for following appts Assessment & Plan (02/02/2024 9:44 AM CDT): Ms. Benites presented for further programming. She is s/p bilateral STN DBS surgery (1998). She was doing about the same with her mobility. She continued to have falls, ambulate with a walker and have a stopped posture. She would benefit from a PT session. She did spend a week in [facility] for psych as she indicated that her family thought she was crazy. She had no medication changes while hospitalized. She indicated that she did not have the family support she needed. She was present with a friend and indicated that her friend was very supportive. Today, her DBS was interrogated and she was provided with a slight one tenth increase. She did not have a change on exam after the increase. Her friend asked for resources on Rytary. GoodRx and [facility] info provided. Recommendations Keep DBS on at all times Journal response to today's increase with mobility May go back to the previous setting if needed for delayed side effects No medication changes. Please let us know if you would like a new order for Rytary at some point [facility] when ready- order provided today Assessment & Plan (07/27/2023 1:59 PM BAKER HEAD): Ms. Benites presented for further programming. She is s/p bilateral STN DBS surgery (1998). She charged her IPG daily. She was sick in May for several weeks and had a decline during that time as she was not able to be as physically active as she used to be. She continued to have falls and used a walker. Her co workers bought her a new walker that she used at home. She tried Rytary with benefit, but she could not afford the $300 monthly cost. Her DBS was interrogated and her IPG was at 100 %, her therapy and system impedances were wnl. No changes were made to her stimulation. Her UPDRS was 35 today and 33 last visit. Recommendation Keep DBS on at all times No medication changes Continue to charge IPG Follow up in 6 months and sooner if needed Fall precaution She could benefit from PT, but was not ready at this time and would like to do the home exercise that she has. She will let us know when she is ready Assessment & Plan (02/16/2023 2:58 PM CDT): [place] further programming and a visit with Dr. Marie. She is s/p bilateral STN DBS surgery (1998). She was in the hospital in November for four days secondary to a UTI. She went to SNF for about one week. She was doing better. She was in PT twice a week. She was provided with some samples of Rytary 23.75/95 mg last visit and was taking this 2 caps in the morning until yesterday with benefit. She had improved drooling and dexterity. She was not able to previously tolerate the levodopa, but she did not have nausea on the Rytary. Sh ran out of samples yesterday. She plan to discuss going back to work with Dr. Marie today, as she had not been since November. Today, she was able to walk with out using her walker. She had bradykinesia, rigidity, reduced dexterity and hypophonia. Her DBS was interrogated and her battery level was at 100%. Her therapy and system impedances were wnl. No changes were made to her stimulation. She does have the older RC charging device and would like a new one since she have to hold the device on the IPG about about an hour for it to charge. Recommendations Keep DBS on at all times Medication per Dr. Marie today Continue PT Fall precaution Follow up in 6 months and sooner if needed Assessment & Plan (12/04/2022 2:12 PM CDT): Ms. Benites presented for further programming. She continued to have good benefit from DBS therapy. She had tried C/L however she had lot of nausea that she discontinued it again. She had tried Zofran in the past without benefit. So she no longer was taking any C/L. She had covid two times last year. She continued to have progression of her disease, she used a walker most of the time and had daily falls. She presented in a walker today but she was able to walk around the room without using the walker. She had bradykinesia, rigidity, her posture is more stooped than before. She could benefit from Pt, will send rx. We discussed trying rytary since she has never tried it before, to see if she can tolerate it better, will give her sample to try of the 23.75 mg / 95 mg , discussed side effects to monitor. We interrogated her DBS and opted to not make any change to her bilateral settings. She has a rechargeable battery she charged daily. Reviewed strict fall precautions . Overall she was pleased with benefit from dbs therapy Mood - she was tearful during the visit and asked if she needs to be on hospice. We discussed she does not but we can initiate palliative care for support, she declined for now. She endorsed being depressed. She is on Wellbutrin but does not think it is helping anymore. She has not been on Es citalopram before , we discussed starting Es citalopram 10 mg daily but start with 5 mg for a week and titrate up. She can wait about 2 weeks to see how she is doing with Rytary before starting the Es citalopram. 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 Keep DBS therapy on at all times. Keep rechargeable battery charged 2. Exercise as tolerated 3. Strict fall precaution 4. 100 capsule sample of Rytary 23.75mg/ 95 mg given, instructions provided on how to take it. 1 capsule once a day for 1 week increase to 1 capsule bid for week and 1 cap tid . Let us know how it is helping 5. Start Es citalopram 10 mg 2 weeks after starting Rytary 6. Start Pt, rx sent 7. Return as scheduled for following appts Assessment & Plan (06/02/2022 2:54 PM BAKER HEAD): Ms. Benites presented for further programming. She continued to have good benefit from DBS therapy. She had tried C/L after her last visit as recommended by Dr Marie however she had lot of nausea that she discontinued it again. She had tried Zofran in the past without benefit. So she no longer was taking any C/L. She had covid two times last year. She also had hospitalization from severe dehydration and malnutrition . She was doing much better after all that. She tried to stay well hydrated and overall felt better. Today she had some bradykinesia, rigidity, she was able to walk the hallway without using her walker. We interrogated her DBS and opted to not make any change to her bilateral settings. She has a rechargeable battery she charged daily. Reviewed strict fall precautions . Overall she was pleased with benefit from dbs therapy Recommendations: 1. Keep DBS therapy on at all times. Keep rechargeable battery charged 2. Exercise as tolerated 3. Strict fall precaution 4. Return as scheduled or sooner if needed Assessment & Plan (2021 3:36 PM BAKER HEAD): Ms. Benites presented for further programming. She continued to have good benefit from DBS therapy. She had tried C/L after her last visit as recommended by Dr Marie however she had lot of nausea that she discontinued it again. She had tried Zofran in the past without benefit. Discussed trying Carbidopa 25 mg before her first dose of C/L. Try for a week with this and update us on the progress. She continue to have several falls in a week. Recommended importance of starting PT, will send rx. Today she came to the clinic using a walker, however was able to walk down the hallway without any assistive device. She had bradykinesia, rigidity , her gait was slow and she had postural instability. We interrogated her DBS and opted to not make any change to her bilateral settings. She has a rechargeable battery she charged daily. Reviewed strict fall precautions and to always use a walker. In spite of her frustration with the disease she realized the benefit from DBS therapy. Recommendations: 1. Keep DBS therapy on at all times. Keep rechargeable battery charged 2. Carbidopa ( Lodosyn ) 25 mg daily before 1st dose of C/L 3. Exercise as tolerated 4. Strict fall precaution 5. Start PT, rx sent 6. Return as scheduled or sooner if needed Assessment & Plan (02/13/2021 11:33 AM CDT): Ms. Benites presented for further programming. She continued to have good benefit from DBS therapy. She had discontinued carbidopa/levodpa 25/100 mg several months ago. She had bradykinesia, slow gait , she had a cane but was able to walk the hallway slowly, she had some freezing of gait while turning direction and had postural instability. She took short steps. She had no tremor and mild neck rigidity. Her speech was soft and slow, but clear. She had seen Dr Marie today as well and she will be started back on Levodopa again. We made a very small increase by 1/10th to her bilateral DBS and she tolerated the change very well. We left this as her active setting in Group A. We provided her previous setting in Group B. She felt mild improvement in bradykinesia and she felt she could walk bit straighter after this change. Dr Marie recommended her to start PT as well. She was very tearful today . Told her to let us know in a week or two how she is doing after restarting Carbidopa Levodopa. Reviewed strict fall precautions and to always use a walker. In spite of her frustration with the disease she realized the benefit from DBS therapy. Recommendations: 1. Keep DBS therapy on at all times. May switch to Group B ( previous setting) incase of delayed side effects. Keep rechargeable battery charged. 2. Medications and other recommendations per Dr Marie today 3. Exercise as tolerated 4. Strict fall precaution 5. Return as schedule in 3 months for further programming Assessment & Plan (08/20/2020 1:53 PM CDT): Ms. Benites presented for further programming. She continued to have good benefit from DBS therapy. She had discontinued carbidopa/levodpa 25/100 mg several months ago. Today on exam, she had reduced dexterity, bradykinesia and gait freezing. She took short steps. She had no tremor and mild neck rigidity. Her speech was soft and slow, but clear. She wanted to try a slight increase for the gait. festination and hesitation. She was provided with a slight increase bilaterally. After the increase, her balance was not as good and we decreased her back to the previous settings and did not make any changes.. She declined P[T at this time and had the home exercises. Fall precaution discussed. Recommendations: 1. Keep DBS therapy on at all times 2. Exercise as tolerated 3. Same medications 4. Fall precaution Assessment & Plan (03/14/2020 3:36 PM CDT): Mr Benites had been doing well since last programming for 3 days after which she feels like her right side was slower. She also continues to have veering to the right side when she walks. She denies any problems when she is sitting. She feels that she needs an increase to her left side to help with the right side lag/slowness. Today she had some bradykinesia, stooped posture, very mild rigidity, slow gait but the gait was smooth with some arm swings. She did not have tremor, freezing of gait or festinations. She has a rechargeable battery which she charges every day for 30 min. We made a small increase in voltage today to her left side from 4.5v to 4.6v in setting A , setting B we increased from 4.4v to 4.5v ( 4.5v is the setting she came to clinic today with). We did not make any change to right side. She tolerated the increase very well without paraesthesia, tingling , dysarthria or change in balance. She continued to have smooth gait after the increase and she reported feeling lot better. She continues to have marked improvement from STN DBS surgery 20 years ago and very happy with the benefit from DBS. 1. Keep DBS on at all times. 2. She will remain on levodopa prn ( may adjust as needed and monitor for dyskinesia). 3. Continue daily exercises. 4. Strict fall and swallow precautions. Assessment & Plan (02/22/2020 3:30 PM CDT): Mr Benites had been doing really well since last programming. Her only complaint was she keeps veering to the right when she is sitting or walking. This was prevalant even before the last programming. It had got better for few days after the increase in settings, but after about 3 days it has reemerged. Today she had some bradykinesia, stooped posture, very mild rigidity, slow gait veering to the right side but the gait was smooth with some arm swings. She did not have tremor, freezing of gait or festinations. We made a small increase in voltage to bilateral IPGs in setting A and made setting B as the setting she came to clinic with and to go back to in case of dyskinesias. She is not able to tolerate po levodopa. She tolerated the increase very weill without paraesthesia, tingling , dysarthria or change in balance. She was also interested in trying physical therapy . She continues to have marked improvement from STN DBS surgery 20 years ago and very happy with the benefit from DBS. 1. Keep DBS on at all times. 2. She will remain on levodopa prn ( may adjust as needed and monitor for dyskinesia). 3. Rx given for physical therapy and information given on [facility] program 4. Start APDA you tube exercises at home 5. Strict fall and swallow precautions. Assessment & Plan (02/14/2020 8:44 AM CDT): She had been having significant bradykinesia, imbalance, difficulty with gait and mild rigidity since change in settings at the time of her surgery for the battery replacement. She now has a rechargeable battery. She came to the clinic using a walker. We slowly made change to her DBS setting, and went to setting A, which was her previous best settings with Medtronic IPGs. Her current IPG settings after todays change are 4.4v,90, 185 for left side and case+, 2 and 3-, 3.9v,90 and 185 for right side. We deleted the setting C which was the setting she came to clinic today with since it had greatly reduced benefit for her. She has setting B for both sides with lower setting if she need to change it. But after today's change patient had marked improvement in her bradykinesia, rigidity was very minimal and also marked improvement in gait, she was able to walk independently without a walker, had stooped posture, but no festinations, gait was steady with some arm swings. She felt really good after this change and did not want to use the walker anymore. She knows to adjust her levodopa if she needs to since she is taking it prn. We warned her to watch out for dyskinesias.She continues to have marked improvement from STN DBS surgery 20 years ago and very happy with the benefit from DBS. 1. Keep DBS on at all times. 2. She will remain on levodopa prn ( may adjust as needed and monitor for dyskinesia). 3. Same Wellbutrin and paroxetine. 4. Strict fall and swallow precautions Assessment & Plan (07/22/2019 12:36 PM BAKER HEAD): She was doing well overall. No change in DBS today. She will start PT for her hip and buttocks pain and for gait and balance training. She continues to have marked improvement from STN DBS surgery 20 years ago. 1. Keep DBS on at all times. 2. She will remain on levodopa prn. 3. Same Wellbutrin and paroxetine. 4. PT for back pain and for gait and balance training. Assessment & Plan (12/21/2018 12:35 PM CDT): She was doing much better recently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
--- OUTSIDE RECORDS SUMMARY | 2024-10-06 14:34 | XMS_ITS | Referral Summary ---
Author Organization [facility] al Address [address] [place] [address] Care Team Providers Care Medical Professionals Name Role Phone Bridgette Marie MD Unavailable Ani Reynolds MD Primary Care Provider [phone] Encounters Date Type Department Care Team Description 10/05/2024 10:00 AM CDT Therapy [facility] Occupational Therapy [address] 2[address] [place] [address] Yanelis Cervantes, OT Parkinson's disease, unspecified whether dyskinesia present, unspecified whether manifestations fluctuate (HCC) (Primary Dx) 07/29/2024 9:33 AM MACHINE CEMENTER AND FOLDER - 07/29/2024 11:59 PM MACHINE CEMENTER AND FOLDER Hospital Encounter [facility] [address] [place] [address] [address] [place] [address] Asymptomatic menopausal state Discharge Disposition: Discharge to home or self care from Last 3 Months Allergies Active Allergy Reactions Criticality Noted Date [...] clonazepam. Assessment & Plan (04/08/2019 3:21 PM MACHINE CEMENTER AND FOLDER): She had stage 2 IPD characterized by [...] 11/30/2017 Assessment & Plan (05/18/2024 5:28 PM MACHINE CEMENTER AND FOLDER): Ms. Benites presented for further programming after [...] session. She did spend a week in [facility] for psych as she indicated that [...] today Assessment & Plan (07/27/2023 1:59 PM MACHINE CEMENTER AND FOLDER): Ms. Benites presented for further programming. She [...] Es citalopram. She was given number to [employer] to get a new merchandising director since her current one was not charging [...] appts Assessment & Plan (06/02/2022 2:54 PM MACHINE CEMENTER AND FOLDER): Ms. Benites presented for further programming. She [...] needed Assessment & Plan (2021 3:36 PM MACHINE CEMENTER AND FOLDER): Ms. Benites presented for further programming. She [...] precautions Assessment & Plan (07/22/2019 12:36 PM MACHINE CEMENTER AND FOLDER): She was doing well overall. No change [...] were instructed on use of the patient cnc lathe programmer. She was encouraged to take small doses [...] if she needs help using the patient cnc lathe programmer Assessment & Plan (06/17/2018 9:40 AM MACHINE CEMENTER AND FOLDER): Ms. Benites had new right leg hamstring [...] gave a return demonstration with the patient cnc lathe programmer. Overall, she remained pleased with her response to DBS therapy. Assessment & Plan (06/08/2018 2:50 PM MACHINE CEMENTER AND FOLDER): Ms. Benites noticed some new symptoms. Her [...] was instructed on use of the patient cnc lathe programmer to check the remaining IPG voltages. Overall, [...] (09/07/2018): Added automatically from request for surgery [id number] Immunizations Immunization Administration Dates Next Due Influenza, Quadrivalent, Spl it, Preservative Free, Intramuscular 02/25/2022 Influenza, Trivalent, Preservative Free, Intramu scular 04/19/2016 Influenza, Unspecified 04/10/2016,02/23/2016 Tdap 07/31/2009 Social History Tobacco Use Types Packs/Day Years [...] Average Number of Drinks Not on file Frequency of Binge Drinking Not on file 06/2018 Comments No Sex and Gender Information Value Date Recorded Sex Assigned at Not on file Legal Sex Female 3:23 PM MACHINE CEMENTER AND FOLDER Gender Identity Not on file Sexual Orientation Not on file Last Filed Vital Signs Vital Sign Reading Time Taken Comments Blood Pressure 119/83 05/16/2024 10:22 AM MACHINE CEMENTER AND FOLDER Pulse 90 05/16/2024 10:22 AM MACHINE CEMENTER AND FOLDER Temperature 36.2 C (97.1 F) 02/01/2024 1:06 PM CDT Respiratory Rate 18 02/19/2023 3:42 PM CDT Oxygen Saturation 96% 02/19/2023 3:42 PM CDT Inhaled Oxygen Concentration - - Weight 70.3 kg (155 lb) 05/16/2024 10:22 AM MACHINE CEMENTER AND FOLDER Height 172.7 cm (5' 8 ) 05/16/2024 10:22 AM MACHINE CEMENTER AND FOLDER Body Mass Index 23.57 05/16/2024 10:22 AM MACHINE CEMENTER AND FOLDER Plan of Treatment Not on file Medical Devices Implanted Type Area Actuarial Mathematician Device Identifier Shelf Expiration Date Model / Serial / Lot [employer] V[employer] 2303ans - [id number] - [id number] Implanted:Qty: 1 on 10/01/2018 by Lazaro Hernandez MD at [facility] Other - see comments Left: Chest [employer] [id number] 06/23/2019 2303ANS / [id number] / [id number] Description:Adapter [employer] 6660ans Infinity 5.55x4.95cm Thk1.34cm Generator 30.4cc Pulse Sterile - [id number] - [id number] Implanted:Qty: 1 on 10/01/2018 by Lazaro Hernandez MD at [facility] Left: Chest [employer] [id number] 06/30/2020 6660ANS / [id number] / [employer] 6660ans Infinity 5.55x4.95cm Thk1.34cm Generator 30.4cc Pulse Sterile - [id number] - [id number] Implanted:Qty: 1 on 10/01/2018 by Lazaro Hernandez MD at [facility] Right: Chest [employer] [id number] 06/18/2020 6660ANS / [id number] / [employer] 2303ans - [id number] - [id number] Implanted:Qty: 1 on 10/01/2018 by Lazaro Hernandez MD at [facility] Right: Chest [employer] [id number] 06/23/2019 2303ANS / [id number] / [id number] Medtronic Neuro 60532 25.5cmx16.6mm 33.8mm 1x4 Pocket Kit Adapter Spinal Cord - [id number] - [id number] Implanted:Qty: 1 on 01/27/2020 by Lazaro Hernandez MD at [facility] Medtronic Inc 02/25/2023 [id number] / [id number] / Activjudy Rc Rechargeable Neurostimulator For Deep Brain Stimulation Implanted:Qty: 1 on 01/27/2020 by Lazaro Hernandez MD at [facility] Medtronic 05/07/2020 / [id number] / Description:[id number] Deep Brain Stimulator Implanted:Qty: 1 on 01/27/2020 by Lazaro Hernandez MD at [facility] Medtronic 03/04/2023 / [id number] / Description:[id number] Explanted Type Area Actuarial Mathematician Device Identifier Shelf Expiration Date Model / Serial / Lot Medtronic Neuro [id number] Activa Sc 2.4inx2.2in .4in 1 Channel Quadripolar Multiprogram - [id number] - [id number] Explanted:Qty: 1 on 10/01/2018 by Lazaro Hernandez MD at [facility] Left: Chest Medtronic Neuro 39070 / [id number] / Medtronic Neuro [id number] Activa Sc 2.4inx2.2in .4in 1 Channel Quadripolar Multiprogram - [id number] - [id number] Explanted:Qty: 1 on 10/01/2018 at [facility] Right: Chest Medtronic Neuro 54059 / [id number] / Medtronic Battery Explanted:Qty: 1 on 01/27/2020 at [facility] Left: Chest Medtronic 6660 / [id number] / Medtronic Battery Explanted:Qty: 1 on 01/27/2020 at [facility] Right: Chest Medtronic 6660 / [id number] / Procedures Procedure Name Priority Date/Time Associated Diagnosis Comments DEXA AXIAL SKELETON BONE DENSITY 1 OR MORE SITES Schedule Routine, Read Routine (OP Routine) 07/29/2024 10:11 AM MACHINE CEMENTER AND FOLDER Asymptomatic menopausal state from Last 3 Months Results * Dexa Axial Skeleton Bone Density 1 or 2 Site (07/29/2024 10:11 AM MACHINE CEMENTER AND FOLDER) Anatomical Region Laterality Modality Body N/A Digital Radiogra phy 07/29/2024 11:0 7 AM MACHINE CEMENTER AND FOLDER Impressions 07/29/2024 11:07 AM MACHINE CEMENTER AND FOLDER 1. The bone mineral density of the [...] Raegan Fitch M.D. Narrative 07/29/2024 11:07 AM MACHINE CEMENTER AND FOLDER BONE DENSITOMETRY OF THE SPINE AND HIP [...] gender-matched subjects (the Z-score). It is 0.6 standard deviations below the mean peak bone mineral density in young adults (the T-score). SUMMARY OF CURRENT RESULTS: Region BMD T-score Z-score AP Spine (L1, L2, L3) 1.206 1.7 2.8 Femoral Neck (Left) 0.811 -0.3 0.8 Total Hip (Left) 0.865 -0.6 0.1 Procedure Note Raegan Fitch MD - 07/29/2024 BONE DENSITOMETRY OF THE SPINE AND HIP [...] gender-matched subjects (the Z-score). It is 0.6 standard deviations below the mean peak bone mineral density in young adults (the T-score). SUMMARY OF CURRENT RESULTS: Region BMD T-score Z-score AP Spine (L1, L2, L3) 1.206 1.7 2.8 Femoral Neck (Left) 0.811 -0.3 0.8 Total Hip (Left) 0.865 -0.6 0.1 IMPRESSION: 1. The bone mineral density of the [...] spine bone mineral density is below the a [id number]|2024-10-06 14:34:00|2024-10-06 14:33:00|XMS_ITS|[id number]|External Medical Summaries|[id number]|" Encounter Summary Created on: October 06, 2024 Shilpi Benites Judy : 1970 Sex: Female Author Organization [facility] Address [address] [place] [address] Phone Care Team Providers Care Medical Professionals Name Role Phone Ani Reynolds MD Primary Care Provider [phone] Reason for Referral * PT/OT/ST (Routine) - Open Specialty Diagnoses / Procedures Referred By Contac t Referred To Contact Speech Therapy Diagnoses Parkinson's disease without fluctuating manifestations, unspecified whether dyskinesia present (HCC) Zoe Han APRN, CNP [address] [place] [address] Phone: tel: fax: Referral ID Status Reason Start Date Expiration Date Visits Re quested Visits Authorized [id number] Open 03/08/2024 50 50 Scheduling Instructions * PT/OT/ST (Routine) - Open Specialty Diagnoses / Procedures Referred By Contac t Referred To Contact Occupational Therapy Diagnoses Parkinson's disease without fluctuating manifestations, unspecified whether dyskinesia present (HCC) Zoe Han APRN, CNP [address] [place] [id number] Phone: tel: fax: Referral ID Status Reason Start Date Expiration Date Visits Re quested Visits Authorized [id number] Open 03/08/2024 50 50 Scheduling Instructions Encounter Details Date Type Department Care Team (Latest Contact Info) Description 03/08/2024 Transcribe Orders [facility] [address] [place] [address] Zoe Han APRN, [place] [address] [place] [address] Parkinson's disease without fluctuating manifestations, unspecified whether dyskinesia present (HCC) (Primary Dx) Social History Tobacco Use [...] Type Priority Associated Diagnoses Orde r Schedule OCCUPATIONAL THERAPY REFERRAL Outpatient Referral Routine Parkinson's disease without fluctuating manifestations, unspecified whether dyskinesia present (HCC) Expected: 03/08/2024, Expires: 03/08/2025 SPEECH THERAPY REFERRAL Outpatient Referral Routine Parkinson's disease without fluctuating manifestations, unspecified whether dyskinesia present (HCC) Expected: 03/08/2024, Expires: 03/08/2025 documented as of this encounter Visit Diagnoses Diagnosis Parkinson's disease without fluctuating manifestations, unspecified whether dyskinesia present (HCC)- Primary documented in this encounter Care Teams Medical Professionals Relationship Specialty Start Date End Date Ani Reynolds MD [address] [place] [address] PCP - General Family Medicine 06/06/21 documented as of this encounter "
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
--- OUTSIDE RECORDS SUMMARY | 2024-10-06 14:34 | XMS_ITS | Clinical Summary ---
Author Organization [facility] Address [address] [place] [address] Care Team Providers Care Revenue Analyst Name Role Phone Ani Reynolds MD Primary Care Provider [phone] Allergies Active Allergy Reactions Criticality Noted Date Comments Hydrocodone Vomiting 04/12/2024 vomiting Oxycodone Vomiting 04/12/2024 Prochlorperazine Unknown 04/12/2024 Pt is unsure about this allergy Medications buPROPion (WELLBUTRIN) 300 MG TABLET SR 24 HR XL tablet Take 300 mg by mouth every morning. Active oxybutynin (DITROPAN-XL) 10 MG TABLET SR 24 HR Take 10 mg by mouth daily. Active clonazePAM (KlonoPIN) 1 MG Tablet Take 1.5 Tablets by mouth nightly. Active diclofenac (VOLTAREN) 75 MG Tablet Delayed Response Take 75 mg by mouth 2 times daily. Active gabapentin (NEURONTIN) 600 MG Tablet Take 600 mg by mouth daily. Active zolpidem (AMBIEN) 5 MG Tablet Take 5 mg by mouth nightly. Active tiZANidine HCl 4 MG Capsule Take 4 mg by mouth nightly as needed for Other (muscle pain). Active famotidine (PEPCID) 20 MG Tablet Take 20 mg by mouth 2 times daily. Active Social History Tobacco Use Types Packs/Day Years Used Date Smoking Tobacco: Never Assessed Comments Unknown Sex and Gender Information Value Date Recorded Sex Assigned at Not on file Legal Sex Female 11:18 PM CDT Gender Identity Not on file Sexual Orientation Not on file Last Filed Vital Signs Vital Sign Reading Time Taken Comments Blood Pressure 108/70 05/17/2024 9:47 AM PRODUCTION CONTROL COORDINATOR Pulse 60 05/17/2024 9:47 AM PRODUCTION CONTROL COORDINATOR Temperature 36.8 C (98.2 F) 05/17/2024 9:47 AM PRODUCTION CONTROL COORDINATOR Respiratory Rate 18 05/17/2024 9:47 AM PRODUCTION CONTROL COORDINATOR Oxygen Saturation 98% 05/17/2024 9:47 AM PRODUCTION CONTROL COORDINATOR Inhaled Oxygen Concentration - - Weight 70.2 kg (154 lb 12.8 oz) 04/28/2024 9:39 AM PRODUCTION CONTROL COORDINATOR Height 172.7 cm (5' 8 ) 04/14/2024 12:2 1 PM PRODUCTION CONTROL COORDINATOR Body Mass Index 23.54 04/14/2024 12:21 PM PRODUCTION CONTROL COORDINATOR Plan of Treatment Health Maintenance Due Date Last Done Comments Hepatitis C Virus (HCV) Screening 1970 Mammogram 1970 Hepatitis B Immunization (1 of 3 - 19+ 3-dose series) 1987 Pap Smear 1989 Cervical Cancer Screening (CCS) 1998 HPV/Cotest 1998 Colonoscopy 2013 Colorectal Cancer Screening 2013 Cologuard 2018 Immunochemical Fecal Occult Blood 2018 Pneumococcal Immunization (50+ years) (1 of 1 - PCV) 2018 Zoster Immunization (1 of 2) 2018 SARS-COV-2 Immunization ( - season) 2024 05/06/2021, 09/02/2020 Influenza Immunization (Season Ended) 2025 02/25/2022, 02/25/2022, 05/06/2021, Additional history exists Respiratory Syncytial Virus (RSV) Immunization (Adult) (1 - 1-dose 75+ series) 2043 DTaP/Tdap/Td Immunization Discontinued 07/31/2009 TdaP Immunization Completed 07/31/2009 Meningococcal Immunization (ACWY) Aged Out No longer eligible based on patient's age to complete this topic Rotavirus Immunization Aged Out No lo nger eligible based on patient's age to complete this topic Insurance MEDICARE C [employer] MEDICARE C [facility] Advance Directives * Full Code (Latest Code Status on File) Date Activated Date Inactivated Comments 04/12/2024 11:54 AM Care Teams Revenue Analyst Relationship Specialty Start Date End Date Ani Reynolds MD [address] [place] [address] PCP - General Family Medicine 06/06/21
== END 2024-10-06 14:31 | disposition home or self-care (01) ==
LOC: ANHIMG 14:32
PROVIDERS: PCP Family Medicine; Visit Provider Student in an Organized Health Care Education/Training Program
DX: Z12.31 Encounter for screening mammogram for malignant neoplasm of breast (principal)
CPT/HCPCS: 77063; 77067

== ENCOUNTER 2024-12-05 13:01 | Emergency (ER) | payer MEDICARE, SELFPAY ==
--- NOTE | ~2024-12-05 | XR_ITS ---
EXAMINATION: XR ankle RT min 3V DATE: 12/05/2024 13:44 INDICATION: Plantar and lateral right foot and ankle pain post fall TECHNIQUE: 1. Anteroposterior and mortise views of the right ankle were obtained. 2. Dorsoplantar, two oblique and lateral views of the right foot were obtained. COMPARISON: None. FINDINGS: Alignment of the right foot and ankle is normal. Small corticated ossicles along the anterior margin of the distal to the medial malleolus and along the adjacent anteromedial margin of the neck the talu s consistent with sequela of chronic deltoid ligament injury. Mild to moderate osteoarthritis at the first metatarsophalangeal joint. Additional mild osteoarthritis at a few of the tarsal metatarsal and interphalangeal joints. Achilles and plantar calcaneal spurs. No ankle joint effusion. Comment soft tissue swelling about the lateral malleolus. IMPRESSION: 1. Stigmata of chronic medial ankle sprain. No acute osseous abnormality. 2. 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 Reviewed, dictated and finalized at location A. IMPRESSION: 1. Stigmata of chronic medial ankle sprain. No acute osseous abnormality. 2. 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
--- NOTE | ~2024-12-05 | XR_ITS ---
XR foot RT min 3V Ordering provider: Zak Farrar APRN History: . fall today, plantar mid foot pain. . Comparison: None. FINDINGS: BONES: Lucency is seen in the posterior aspect of the talus which may indicate a fracture. JOINT SPACES: Osteoarthritic changes of the first metatarsophalangeal joint. No tarsal coalition. SOFT TISSUES: Normal. Calcaneal spur. IMPRESSION: Possible fracture in the posterior talus. Follow-up advised. Osteoarthritic changes of the first metatarsophalangeal joint. Reviewed, dictated and finalized at location A.
[2024-12-05 13:08] VITALS: BP 101/72; PULSE 113; RESP 20; TEMP 37.2; O2SAT 98
--- OUTSIDE RECORDS SUMMARY | 2024-12-05 13:09 | XMS_ITS | Encounter Summary ---
Author Organization [facility] Address [address] [place] [address] Phone Care Team Providers Care Oral Hygienist Name Role Phone Ani Reynolds MD Primary Care Provider Reason for Referral * PT/OT/ST (Routine) - Open Specialty Diagnoses / Procedures Referred By Ramana srivastava Referred To Contact Speech Therapy Diagnoses Parkinson's disease without fluctuating manifestations, unspecified whether dyskinesia present (HCC) Zoe Han APRN, CNP [address] [place] [address] Phone: tel: fax: Referral ID Status Reason Start Date Expiration Date Visits Re quested Visits Authorized [id number] Open 03/08/2024 50 50 Scheduling Instructions * PT/OT/ST (Routine) - Open Specialty Diagnoses / Procedures Referred By Ramana srivastava Referred To Contact Occupational Therapy Diagnoses Parkinson's disease without fluctuating manifestations, unspecified whether dyskinesia present (HCC) Zoe Han APRN, CNP [address] [place] [address] Phone: tel: fax: Referral ID Status Reason Start Date Expiration Date Visits Re quested Visits Authorized [id number] Open 03/08/2024 50 50 Scheduling Instructions Encounter Details Date Type Department Care Team (Latest Contact Info) Description 03/08/2024 Transcribe Orders [facility] [address] [place] [address] Zoe Han APRN, [address] [address] Parkinson's disease without fluctuating manifestations, unspecified whether [...] Primary documented in this encounter Care Teams Oral Hygienist Relationship Specialty Start Date End Date Ani Reynolds MD [address] [place] [address] PCP - General Family Medicine 06/06/21 documented as of this encounter
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
--- OUTSIDE RECORDS SUMMARY | 2024-12-05 13:09 | XMS_ITS | Encounter Summary ---
Author Organization [facility] Address [address] [place] [address] Phone Care Team Providers Care Ordained Minister Name Role Phone Ani Reynolds MD Primary Care Provider [phone] Reason for Referral * PT/OT/ST (Routine) - Closed Specialty Diagnoses / Procedures Referred By Contac t Referred To Contact Physical Therapy Diagnoses Parkinson's disease, unspecified whether dyskinesia present, unspecified whether manifestations fluctuate (HCC) Zoe Han APRN, TECHNICAL AGRONOMIST [address] [place] [address] Phone: tel: fax: Referral ID Status Reason Start Date Expiration Date Visits Re quested Visits Authorized [id number] Closed 02/24/2024 50 1 Scheduling Instructions Encounter Details Date Type Department Care Team (Latest Contact Info) Description 02/24/2024 Transcribe Orders [facility] [address] [place] [address] Zoe Han APRN, TECHNICAL AGRONOMIST [address] [place] [address] Parkinson's disease, unspecified whether dyskinesia present, [...] Primary documented in this encounter Care Teams Ordained Minister Relationship Specialty Start Date End Date Ani Reynolds MD [address] [place] [address] PCP - General Family Medicine 06/06/21 documented as of this encounter
--- OUTSIDE RECORDS SUMMARY | 2024-12-05 13:09 | XMS_ITS | Encounter Summary ---
Author Organization [facility] Address [address] [place] [address] Phone Care Team Providers Care Yoga Coordinator Name Role Phone Ani Reynolds MD Primary Care Provider [phone] Encounter Details Date Type Department Care Team (Late st Contact Info) Description 05/02/2024 Telephone [facility] [address] [place] [address] Cate Mayes, PT [place] Social History Tobacco Use Types Packs/Day Years [...] CST This telephone encounter was an error. 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
--- OUTSIDE RECORDS SUMMARY | 2024-12-05 13:09 | XMS_ITS | Encounter Summary ---
Author Organization [facility] Address [address] [place] [address] Phone Care Team Providers Care Kiln Repairer Name Role Phone Alexandra Hubbard MD Primary Care Provider [phone] Bridgette Marie MD Unavailable Darby Venegas Primary Care Provid er Ani Reynolds MD Primary Care Provider [phone] Encounter Details Date Type Department Care Team [...] on file Legal Sex Female 3:23 PM WIRE SETTER Gender Identity Not on file Sexual Orientation [...] documented as of this encounter Care Teams Kiln Repairer Relationship Specialty Start Date End Date Alexandra Hubbard MD PCP - General Family Practice 10/11/18 12/13/20 Darby Venegas PA [address] [place] [address] PCP - General Physician Receivable Clerk 12/14/20 01/18/23 Ani Reynolds MD [address] [place] [address] PCP - General Family Medicine 01/19/23 Bridgette Marie MD [address] [place] [address] Consulting Physician Neurology 09/07/19 documented as of this encounter
--- OUTSIDE RECORDS SUMMARY | 2024-12-05 13:09 | XMS_ITS | Clinical Summary ---
Author Organization [facility] Address [address] [place] [address] Care Team Providers Care Crane Hooker Name Role Phone Ani Reynolds MD Primary Care Provider [phone] Allergies Active Allergy Reactions Criticality Noted Date [...] Comments Blood Pressure 108/70 05/17/2024 9:47 AM FIRE PROTECTION ENGINEERING TECHNICIAN Pulse 60 05/17/2024 9:47 AM FIRE PROTECTION ENGINEERING TECHNICIAN Temperature 36.8 C (98.2 F) 05/17/2024 9:47 AM FIRE PROTECTION ENGINEERING TECHNICIAN Respiratory Rate 18 05/17/2024 9:47 AM FIRE PROTECTION ENGINEERING TECHNICIAN Oxygen Saturation 98% 05/17/2024 9:47 AM FIRE PROTECTION ENGINEERING TECHNICIAN Inhaled Oxygen Concentration - - Weight 70.2 kg (154 lb 12.8 oz) 04/28/2024 9:39 AM FIRE PROTECTION ENGINEERING TECHNICIAN Height 172.7 cm (5' 8) 04/14/2024 12:2 1 PM FIRE PROTECTION ENGINEERING TECHNICIAN Body Mass Index 23.54 04/14/2024 12:21 PM FIRE PROTECTION ENGINEERING TECHNICIAN Plan of Treatment Health Maintenance Due Date Last Done Comments Hepatitis C Virus (HCV) Screening 1968 Mammogram 1968 Hepatitis B Immunization (1 of 3 - 19+ 3-dose series) 1987 Pap Smear 1989 Cervical Cancer Screening (CCS) 1998 HPV/Cotest 1998 Cologuard 2013 Colonoscopy 2013 Colorectal Cancer Screening 2013 Immunochemical Fecal Occult Blood 2013 Pneumococcal Immunization (50+ years) (1 of 1 - PCV) 2018 Zoster Immunization (1 of 2) 2018 SARS-COV-2 Immunization ( - season) 2024 05/06/2021, 09/02/2020 Influenza Immunization (#1) 2025 100 08/2021, 02/25/2022, 05/06/2021, Additional history exists Respiratory Syncytial Virus (RSV) Immunization (Adult) (1 - 1-dose 75+ series) 2043 DTaP/Tdap/Td Immunization Discontinued 07/31/2009 TdaP Immunization Completed 07/31/2009 Human Papillomavirus (HPV) Immunization Aged Out No longer eligible based on patient's age to complete this topic Meningococcal Immunization (ACWY) Aged Out No longer eligible based on patient's age to complete this topic Rotavirus Immunization Aged Out No lo nger eligible based on patient's age to complete this topic Insurance MEDICARE C MEDICA MEDICARE C [facility] Advance Directives * Full Code (Latest Code Status on File) Date Activated Date Inactivated Comments 04/12/2024 11:54 AM Care Teams Crane Hooker Relationship Specialty Start Date End Date Ani Reynolds MD [address] [place] [address] PCP - General Family Medicine 06/06/21
--- OUTSIDE RECORDS SUMMARY | 2024-12-05 13:09 | XMS_ITS ---
Encounters Date Type Department Care Team Description 11/09/2024 10:30 AM CDT Procedure visit [facility] Disorders [address] [facility] 7th [place] [address] Zoe Han NP S/P deep brain stimulator placement (Primary Dx); Parkinson's disease without dyskinesia or fluctuating manifestations (HCC); Parkinson's disease, unspecified whether dyskinesia present, unspecified whether manifestations fluctuate (HCC) 10/05/2024 10:00 AM CDT Therapy [facility] [address] [facility] 2nd [address] [place] [address] Yanelis Cervantes, MICHAEL Parkinson's disease, unspecified whether dyskinesia present, unspecified whether manifestations fluctuate (HCC) (Primary Dx) from Last 3 Months Allergies Active Allergy [...] day 90 capsule 3 05/16/20 24 025 Discontinued(Th erapy completed) zolpidem (AMBIEN) 5 mg tablet [...] clonazepam. Assessment & Plan (04/08/2019 3:21 PM SALARY AND WAGE ADMINISTRATOR): She had stage 2 IPD characterized by [...] hydrated Assessment & Plan (05/18/2024 5:28 PM SALARY AND WAGE ADMINISTRATOR): Ms. Benites presented for further programming after [...] session. She did spend a week in [facility] for psych as she indicated that [...] today Assessment & Plan (07/27/2023 1:59 PM SALARY AND WAGE ADMINISTRATOR): Ms. Benites presented for further programming. She [...] Es citalopram. She was given number to [employer] to get a new project management instructor since her current one was not charging [...] appts Assessment & Plan (06/02/2022 2:54 PM SALARY AND WAGE ADMINISTRATOR): Ms. Benites presented for further programming. She [...] needed Assessment & Plan (2021 3:36 PM SALARY AND WAGE ADMINISTRATOR): Ms. Benites presented for further programming. She [...] precautions Assessment & Plan (07/22/2019 12:36 PM SALARY AND WAGE ADMINISTRATOR): She was doing well overall. No change [...] were instructed on use of the patient senior java programmer. She was encouraged to take small [...] if she needs help using the patient senior java programmer Assessment & Plan (06/17/2018 9:40 AM SALARY AND WAGE ADMINISTRATOR): Ms. Benites had new right leg hamstring [...] gave a return demonstration with the patient senior java programmer. Overall, she remained pleased with her response to DBS therapy. Assessment & Plan (06/08/2018 2:50 PM SALARY AND WAGE ADMINISTRATOR): Ms. Benites noticed some new symptoms. Her [...] was instructed on use of the patient senior java programmer to check the remaining IPG voltages. [...] (09/07/2018): Added automatically from request for surgery [id number] Immunizations Immunization Administration Dates Next Due Influenza, [...] on file Legal Sex Female 3:23 PM SALARY AND WAGE ADMINISTRATOR Gender Identity Not on file Sexual Orientation [...] 11/09/2024 11:37 AM CDT Plan of Treatment Not on file Medical Devices Implanted Type Area Department Of Natural Resources Officer Device Identifier Shelf Expiration Date Model / Serial / Lot Freeman Vascular 2303ans - [id number] - [id number] Implanted:Qty: 1 on 10/01/2018 by Lazaro Hernandez MD at [facility] Other - see comments Left: Chest Freeman Vascular [id number] 06/23/2019 2303ANS / [id number] / [id number] Description:Adapter Freeman Vascular 6660ans Infinity 5.55x4.95cm Thk1.34cm Generator 30.4cc Pulse Sterile - [id number] - [id number] Implanted:Qty: 1 on 10/01/2018 by Lazaro Hernandez MD at [facility] Left: Chest Freeman Vascular [id number] 06/30/2020 6660ANS / [id number] / Freeman Vascular 6660ans Infinity 5.55x4.95cm Thk1.34cm Generator 30.4cc Pulse Sterile - [id number] - [id number] Implanted:Qty: 1 on 10/01/2018 by Lazaro Hernandez MD at [facility] Right: Chest Freeman Vascular [id number] 06/18/2020 6660ANS / [id number] / Freeman Vascular 2303ans - [id number] - [id number] Implanted:Qty: 1 on 10/01/2018 by Lazaro Hernandez MD at [facility] Right: Chest Freeman Vascular [id number] 06/23/2019 2303ANS / [id number] / [id number] Medtronic Neuro 71716 25.5cmx16.6mm 33.8mm 1x4 Pocket Kit Adapter Spinal Cord - [id number] - [id number] Implanted:Qty: 1 on 01/27/2020 by Lazaro Hernandez MD at [facility] Medtronic Inc 02/25/2023 [id number] / [id number] / Activjudy Rc Rechargeable Neurostimulator For Deep Brain Stimulation Implanted:Qty: 1 on 01/27/2020 by Lazaro Hernandez MD at [facility] Medtronic 05/07/2020 / [id number] / Description:[id number] Deep Brain Stimulator Implanted:Qty: 1 on 01/27/2020 by Lazaro Hernandez MD at [facility] Medtronic 03/04/2023 / [id number] / Description:[id number] Explanted Type Area Department Of Natural Resources Officer Device Identifier Shelf Expiration Date Model / Serial / Lot Medtronic Neuro 54366 Activa Sc 2.4inx2.2in .4in 1 Channel Quadripolar Multiprogram - [id number] - [id number] Explanted:Qty: 1 on 10/01/2018 by Lazaro Hernandez MD at [facility] Left: Chest Medtronic Neuro 81458 / [id number] / Medtronic Neuro [id number] Activa Sc 2.4inx2.2in .4in 1 Channel Quadripolar Multiprogram - [id number] - [id number] Explanted:Qty: 1 on 10/01/2018 at [facility] Right: Chest Medtronic Neuro 91711 / [id number] / Medtronic Battery Explanted:Qty: 1 on 01/27/2020 at [facility] Left: Chest Medtronic 6660 / [id number] / Medtronic Battery Explanted:Qty: 1 on 01/27/2020 at [facility] Right: Chest Medtronic 6660 / [id number] / [place] [address] MEDICARE COMMERCIAL GENERIC [employer] MEDICARE [facility] MEDICARE COMMERCIAL GENERIC [facility] MEDICARE ADVANTAGE MEDICARE [facility] MEDICARE ADVANTAGE Advance Directives For more information, please contact: [phone] * Full Code (Latest Code Status on File) Date Activated Date Inactivated Comments 02/25/2022 1:55 AM 03/04/2022 7:01 PM * Full Code Date Activated Date Inactivated Comments 09/28/2019 5:05 PM 10/01/2019 5:49 PM * Full Code Date Activated Date Inactivated Comments 09/28/2019 7:18 AM 09/28/2019 5:05 PM * Full Code Date Activated Date Inactivated Comments 09/07/2019 9:02 AM 09/09/2019 1:26 PM Care Teams Facility Technician Relationship Specialty Start Date End Date Ani Reynolds MD [address] [place] [address] PCP - General Family Medicine 01/19/23 Bridgette Marie MD [address] [place] [address] Consulting Physician Neurology 09/07/19
--- NOTE | 2024-12-05 13:19 | ED_ITS ---
HPI - Extremity Injury (Lower) General Chief Complaint: Extremity Injury, Lower Stated Complaint: Right ankle injury Time Seen by Provider: 12/05/24 13:15 Source: patient and RN notes reviewed Mode of arrival: ambulatory Limitations: no limitations History of Present Illness HPI Narrative: 54-year-old female Presents to Express Care complaining of injury to right ankle. Patient reports she got tripped up over her walker today and fell to the ground. Patient denies any loss of consciousness, hitting her head, neck pain, or back pain. Patient denies any dizziness, lightheadedness, vision changes, headaches, or any other symptoms. Patient denies any numbness, tingling or any other injuries. Patient has a history of Parkinson's and severe scoliosis of her back. Related Data Home Medications ?Medication ?Instructions ?Recorded ?Confirmed ?Last Taken ?Type clonazepam 1 mg tablet 1.5 mg PO QHS 11/23/20 06/17/24 1 Day Ago History ~03/25/24 oxybutynin chloride 10 mg 10 mg PO DAILY 06/20/21 06/17/24 03/25/24 History tablet,extended release 24 hr tizanidine 4 mg tablet (Zanaflex) 4 mg PO HS PRN Muscle Spasm 01/03/23 06/17/24 03/25/24 History gabapentin 600 mg tablet 600 mg PO HS 05/26/23 06/17/24 03/25/24 History zolpidem 5 mg tablet 5 mg PO QHS 05/26/23 06/17/24 03/25/24 History famotidine 10 mg tablet 10 mg PO BID 03/26/24 06/17/24 03/25/24 History Allergies Allergy/AdvReac Type Severity Reaction Status Date / Time aspirin Allergy Unknown Unknown Verified 12/05/24 13:17 oxycodone Allergy Unknown Unknown Verified 12/05/24 13:17 hydrocodone AdvReac Severe Nausea and Verified 12/05/24 13:17 Vomiting prochlorperazine AdvReac Severe Itching Verified 12/05/24 13:17 OXYCODONE HCL Allergy Unknown Nausea and Uncoded 12/05/24 13:17 Vomiting Review of Systems Review of Systems: CONSTITUTIONAL: Denies fever, chills, or sweats. EYES: Denies visual changes, redness, or discharge. ENT: Denies rhinorrhea, congestion, sore throat, or otalgia. CARDIOVASCULAR: Denies chest pain, palpitations, or edema. RESPIRATORY: Denies cough or dyspnea. GASTROINTESTINAL: Denies abdominal pain, nausea, vomiting, or diarrhea. GENITOURINARY: Denies dysuria or hematuria. SKIN: Denies rash, wound, or itching. MUSCULOSKELETAL: Denies back pain, joint pain, or myalgia. Positive for right ankle injury and swelling NEUROLOGIC: Denies headache, numbness, or weakness. PSYCHIATRIC: Denies anxiety or depression. All other systems reviewed are negative, except as documented in HPI. [facility] Past Medical History Medical History Arthritis Lumbar canal stenosis Depression Anxiety Insomnia Gait disorder Parkinsons disease Surgical History Surgical History History of tonsillectomy S/P left knee arthroscopy S/P deep brain stimulator placement S/P lumbar laminectomy Family History Family History Mother Hypertension Family history of rheumatoid arthritis Father Family history of lung cancer Sibling Family history of lung cancer Social History Social History Smoking packs per day: 1 Smoking cigarettes per day: 20.0 Smoking status: Former smoker Second hand tobacco smoke exposure: No Smoking end date: 03/25/15 Alcohol intake: never Substance use: never Substance use type: does not use Do You Feel Safe in your Home?: No Lack of Transportation: No Lack of Food: Never True Current Housing: I Have Housing Concerned About Future Housing: YES Difficulty Paying Gas/Electric Bills: No Difficulty Paying for Meds: No Currently Unemployed: No Education: Bachelor's Degree Difficulty w/ Childcare or Family Care: No Gender identity (if verbalized by the patient): Female Spiritual care concerns: No Agree to blood products: Yes Comments At the time of my signature, I reviewed and agree with the nursing past medical, surgical, social, and family history. There is no relevant family history pertinent to the patient complaint. Exam Narrative: GENERAL: This is a well-nourished, well-developed adult, in no apparent distress. They are non ill-appearing, nontoxic appearing. HEAD: normocephalic, atraumatic. EYES: Sclera clear/white. Vision is grossly intact. Conjunctiva normal. Extraocular movement intact. EARS: External ears normal Hearing grossly intact. NOSE: External nose normal THROAT: Mucous membranes moist NECK: Neck supple CARDIOVASCULAR: Regular rate and rhythm RESPIRATORY: Respiratory rate normal, respiratory effort nonlabored, no respiratory distress NEURO: awake, alert, and oriented to person, place and time. There were no obvious focal neurologic abnormalities. EXTREMITIES: Right ankle/foot. No obvious deformity. There is lateral ankle swelling. There is pain through full range of motion. Tenderness to palpation to lateral ankle and plantar surface and midfoot. No obvious swelling to the f oot. Capillary refill less than 3 seconds. Right pedal Pulse 2 +palpable. Normal sensation. Neurovascular status intact distal injury. Patient is able to wiggle her toes. Negative Mix's test. BACK: Nontender without deformity. Course Course Emergency Course: Portions of this record may have been created with voice recognition software Level of Care: Express Care Visit Vital Signs Vital signs: Vital Signs Temperature 98.9 F 12/05/24 13:08 Pulse Rate 113 H 12/05/24 13:08 Respiratory Rate 20 12/05/24 13:08 Blood Pressure 101/72 12/05/24 13:08 Pulse Oximetry 98 12/05/24 13:08 Oxygen Delivery Room Air 12/05/24 13:08 Temperature 98.9 F 12/05/24 13:08 Pulse Rate 113 H 12/05/24 13:08 Respiratory Rate 20 12/05/24 13:08 Blood Pressure 101/72 12/05/24 13:08 Pulse Oximetry 98 12/05/24 13:08 Oxygen Delivery Room Air 12/05/24 13:08 Reviewed Procedures Orthopedic Splinting/Casting Injury #1: Splinting/Casting Date: 12/05/24 Splinting/Casting Time: 14:41 Side: right Lower Extremity Injury Location: foot Splint: customized in ED OCL: other (Posterior short-leg, with stirrup) Pre-Procedure Neuro Vascular Exam: normal Post-Procedure Neuro Vascular Exam: normal Additional Comments: Patient tolerated procedure well. Patient has wheelchair at home. MDM - Extremity Injury (Lower) MDM Narrative Medical decision making narrative: X-ray of the right ankle and foot shows possible fracture to the posterior talus, otherwise no acute findings or other fractures. Chronic medial ankle sprain noted on x-ray. Patient placed in a posterior short-leg with stirrup splint. Patient referred to Ortho. Patient says she has a wheelchair at home, she says she cannot tolerate crutches. Patient says she will be able to have help around her home. Discussed physical exam findings. Advised supportive measures and signs/symptoms to go to the ER. Pt is appropriate for outpt treatment and f/u. Differential Diagnosis Differential diagnosis: Likely ankle sprain and strain, fracture of toe, ankle fracture and other (Foot fracture) Imaging Data Radiologist's impression: ITS Impressions Ankle X-Ray 12/05/24 13:46 IMPRESSION: 1. Stigmata of chronic medial ankle sprain. No acute osseous abnormality. 2. 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 Foot X-Ray 12/05/24 14:20 IMPRESSION: Possible fracture in the posterior talus. Follow-up advised. Osteoarthritic changes of the first metatarsophalangeal joint. Critical Care Time Critical Care Time Critical Care Time: No Discharge Plan Discharge Clinical Impression: Fracture of talus Qualifiers: Encounter type: initial encounter Fracture type: closed Talus location: posterior process Fracture alignment: nondisplaced Laterality: right Qualified Code(s): S92.134A - Nondisplaced fracture of posterior process of right talus, initial encounter for closed fracture Fall Qualifiers: Encounter type: initial encounter Qualified Code(s): W19.XXXA - Unspecified fall, initial encounter Injury of ankle, right Qualifiers: Encounter type: initial encounter Qualified Code(s): S99.911A - Unspecified injury of right ankle, initial encounter Patient Disposition: Home Condition: Stable Instructions: Ankle Sprain (ED), Talar Fracture in Adults (ED), Splint Care (ED) Additional Instructions: The x-ray of your right ankle was negative for any fractures or acute findings. Did incidentally note that you have a chronic ligament injury to the medial side of her ankle. The x-ray of your right foot did show a probable posterior talus fracture. Please wear the splint at all times and do not bear weight. Please use your wheelchair to move around the house. Rest and elevate the leg, Apply ice 15-20 minute intervals several times a day.Motrin 600mg -800mg every 8 hours, alternate with Tylenol 1000mg every 8 hours as needed Follow-up with an orthopedist and your in 3-5 days. Please go to the ER if develops any severe headaches, vision changes, dizziness, lightheadedness, severe pain, numbness, tingling, cold or blue extremity, any other concerns. Patient Language: Georgian Prescriptions: No Action gabapentin 600 mg tablet 600 mg PO HS zolpidem 5 mg tablet 5 mg PO QHS clonazepam 1 mg tablet 1.5 mg PO QHS Rx Instructions: administer 30 minutes before bedtime oxybutynin chloride 10 mg tablet extended release 24hr 10 mg PO DAILY bupropion HCl 300 mg Tablet Extended Release 24 Hr 300 mg PO QAM Qty: 30 0RF tizanidine [Zanaflex] 4 mg tablet 4 mg PO HS PRN (Reason: Muscle Spasm) famotidine 10 mg Tablet 10 mg PO BID diclofenac sodium 75 mg tablet,delayed release (DR/EC) 75 mg PO BID Qty: 60 0RF Follow-up/Referrals: Ani Reynolds MD [Primary Care Provider] - Myron Paige MD [Physician] - Time of Disposition: 14:43
== END 2024-12-05 15:42 | disposition home or self-care (01) ==
PROVIDERS: PCP Family Medicine
DX: S92.134A Nondisplaced fracture of posterior process of right talus, initial encounter for closed fracture (principal); W01.0XXA Fall on same level from slipping, tripping and stumbling without subsequent striking against object, initial encounter; S99.911A Unspecified injury of right ankle, initial encounter; Z87.891 Personal history of nicotine dependence; M19.90 Unspecified osteoarthritis, unspecified site; G20.A1 Parkinson's disease without dyskinesia, without mention of fluctuations; Z96.82 Presence of neurostimulator; F41.9 Anxiety disorder, unspecified; F32.A Depression, unspecified
CPT/HCPCS: 29515; 73610; 73630; 99214; G0463

== ENCOUNTER 2025-02-02 10:16 | Outpatient (CLI) | payer MEDICARE, SELFPAY ==
--- NOTE | ~2025-02-02 | XR_ITS ---
EXAMINATION: XR knee RT min 4V, 02/02/2025 10:45 CDT HISTORY: M25.561 - Pain in right knee, HX [facility] COMPARISON: No comparisons available. Findings: No acute fracture or malalignment. Severe degenerative changes of the patellofemoral joint small effusion Soft tissues unremarkable. Impression: No acute fracture or malalignment. Reviewed, dictated and finalized at location A. Impression: No acute fracture or malalignment.
--- NOTE | ~2025-02-02 | XR_ITS ---
EXAMINATION: XR knee LT min 4V, 02/02/2025 10:45 CDT HISTORY: M25.562 - Pain in left knee, HX [facility] COMPARISON: No comparisons available. Findings: No acute fracture or malalignment. Severe degenerative changes of the patellofemoral joint with small joint effusion Soft tissues unremarkable. Impression: No acute fracture or malalignment. Reviewed, dictated and finalized at location A. Impression: No acute fracture or malalignment.
== END 2025-02-02 10:17 | disposition home or self-care (01) ==
PROVIDERS: PCP Family Medicine; Visit Provider Physician Assistant Surgical
DX: M25.562 Pain in left knee (principal); M17.11 Unilateral primary osteoarthritis, right knee; M25.461 Effusion, right knee
CPT/HCPCS: 73564